=== PATIENT | female | born 1935 | race Caucasian/White ===

== ENCOUNTER → 2016-11-30 | Outpatient (CLI) | payer MEDICARE, BC ==
--- NOTE | 2016-11-30 14:53 | BD ---
EXAMINATION TYPE: MG DEXA axial skeleton. DATE OF EXAM: 11/30/2016 COMPARISON: NONE CLINICAL HISTORY: Postmenopausal female Height: 65.5 IN Weight: 225 LBS FRAX RISK QUESTIONS: Alcohol (3 or more units per day): NO Family History (Parent hip fracture): YES MOTHER Glucocorticoids (More than 3mos): NO (Ex: prednisone, prednisolone, methylprednisolone, dexamethasone, and hydrocortisone). History of Fracture in Adulthood: NO Secondary Osteoporosis: 1. Type 1 Diabetes: NO 2. Hyperthyroidism: NO 3. Menopause before 45: YES AGE 40 4. Malnutrition: NO 5. Chronic liver disease: NO Rheumatoid Arthritis: NO Current Tobacco Use: NO RISK FACTORS HISTORY OF: Family History of Osteoporosis: YES MOTHER/SISTER Active: YES Postmenopausal woman: AGE 40 MEDICATIONS: Additional Medications: XANAX, PAIN PILLS, ULTRAM EXAM MEASUREMENTS: Bone mineral densitometry was performed using the [employer]. Bone mineral density as measured about the Lumbar spine is: ----- L1-L4(G/cm2): 1.360 T Score Values are as follows: ----- L2: 1.1 ----- L3: 2.2 ----- L4: 2.5 ----- L1-L4: 1.5 Bone mineral density BASELINE Bone mineral density about the R hip (g/cm2): 0.945 Bone mineral density about the L hip (g/cm2): 0.961 T Score values are as follows: -----R Neck: -0.7 -----L Neck: -0.6 -----R Total: 0.4 -----L Total: 0.9 Bone mineral density BASELINE IMPRESSION: Normal (Values between +1 and -1 indicate normal bone mass). Consider repeating this study in 5 year s or sooner if there is some new clinical indication. NOTE: T-SCORE=SD OF THE YOUNG ADULT MEAN.
--- NOTE | 2016-12-01 09:17 | MM ---
Reason for exam: screening (asymptomatic). Last mammogram was performed 3 years and 2 months ago. History: Patient is postmenopausal. Physical Findings: A clinical breast exam by your physician is recommended on an annual basis and results should be correlated with mammographic findings. MG 3D Screening Mammo W/Cad Bilateral CC and MLO view(s) were taken. Prior study comparison: September 22, 2013, bilateral MG screening mammo w CAD. September 20, 2012, bilateral digital screening mammo w/CAD. There are scattered fibroglandular densities. Finding: There are typically benign calcifications in both breasts. There is a chronic nodularity in the left breast. No significant changes in finding since September 22, 2013 and September 20, 2012. ASSESSMENT: Benign, BI-RAD 2 RECOMMENDATION: Routine screening mammogram of both breasts in 1 year.
== END | disposition home or self-care (01) ==
LOC: RADBDWWP 12:18
PROVIDERS: ATTEND Family Medicine
DX: Z12.31 Encounter for screening mammogram for malignant neoplasm of breast (principal); M19.90 Unspecified osteoarthritis, unspecified site
CPT/HCPCS: 77080; 77063; G0202

== ENCOUNTER → 2017-03-30 | Outpatient (CLI) | payer MEDICARE, BC ==
--- NOTE | 2017-03-30 14:42 | US ---
EXAMINATION TYPE: US kidneys/renal and bladder DATE OF EXAM: 03/30/2017 COMPARISON: CT abdomen and pelvis October 06, 2015 CLINICAL HISTORY: N30.20 Chronic cystitis. Pt states recurrent UTI EXAM MEASUREMENTS: Right Kidney: 10.2 x 4.4 x 4.5 cm Left Kidney: 9.7 x 5.0 x 4.7 cm Post Void Residual Volume: 76mL Right Kidney: No evidence of hydro, lower pole gassed out Left Kidney: No evidence of hydro, lower pole gassed out Bladder: wnl Bilateral Jets seen: Only left jet visualized Normal Post Void Residual: No There is no evidence for hydronephrosis at this point in time. No nephrolithiasis is seen. No maria c s are identified on images saved. The urinary bladder is anechoic. Distal left ureter jet is seen. L iver adjacent to right kidney shows heterogeneous hyperechoic appearance suggesting diffuse fatty inf iltration. IMPRESSION: Abnormal post void residual noted. No hydronephrosis is seen bilaterally.
== END | disposition home or self-care (01) ==
LOC: RADUSWWP 14:05
PROVIDERS: ATTEND Urology
DX: R39.198 Other difficulties with micturition (principal); N30.20 Other chronic cystitis without hematuria
CPT/HCPCS: 76770

== ENCOUNTER → 2017-09-21 | Outpatient (CLI) | payer MEDICARE, BC ==
--- NOTE | 2017-09-22 08:34 | US ---
DATE OF EXAM: 09/21/2017 COMPARISON: NONE CLINICAL HISTORY: R22.1 neck swelling. Intermittent left neck swelling x 3-4 months Normal appearing soft tissue neck scan. 0.7cm normal appearing lymph node. No abnormality noted. IMPRESSION: 1. Small lymph node within the left neck.
== END | disposition home or self-care (01) ==
LOC: RADUSWWP 15:18
PROVIDERS: ATTEND Family Medicine
DX: R22.1 Localized swelling, mass and lump, neck (principal)
CPT/HCPCS: 76536

== ENCOUNTER → 2017-10-22 | Outpatient (CLI) | payer MEDICARE, BC ==
[2017-10-22 10:55] LABS: Basophils % (A) 1 %; Eosinophils # (A) 0.1 k/uL (0-0.7); Eosinophils % (A) 2 %; HCT 46.4 % (34.0-46.0); HGB 14.7 gm/dL (11.4-16.0); Lymphocytes % (A) 34 %; MCH 33.7 pg (25.0-35.0); MCHC 31.7 g/dL (31.0-37.0); MCV 106.4 fL (80.0-100.0); Macrocytosis Moderate; Monocytes # (A) 0.3 k/uL (0-1.0); Monocytes % (A) 5 %; Neutrophils # (A) 3.3 k/uL (1.3-7.7); Neutrophils % (A) 56 %; Platelet Count 288 k/uL (150-450); RBC 4.36 m/uL (3.80-5.40); RDW 13.3 % (11.5-15.5); WBC 5.8 k/uL (3.8-10.6)
[2017-10-22 12:40] LABS: Erythrocyte Sedimentation Rate 28 mm/hr (0-20)
--- NOTE | 2017-10-22 14:27 | NM ---
EXAMINATION TYPE: NM bone/joint limited DATE OF EXAM: 10/22/2017 COMPARISON: NONE HISTORY: Pain in left knee TECHNIQUE: After the intravenous administration of 24.9 mCi Tc 99m MDP. Images acquired 3 hours pos t injection. Multiple views of bilateral knees are submitted. Relative photopenia identified at the left knee is compared to the right compatible with postop maria e. Uptake in the right knee may be due to osteoarthritic change. Uptake along the tibial plateau and at the level of the patient's distal femoral component is mildly increased. IMPRESSION: Findings may be due to stress changes, uptake about the knee is nonspecific.
== END | disposition home or self-care (01) ==
LOC: RADNMMAIN 10:02
PROVIDERS: ATTEND Orthopaedic Surgery
DX: M25.562 Pain in left knee (principal)
CPT/HCPCS: 85652; 85025; 86140; 78300; A9503

== ENCOUNTER → 2017-12-24 | Outpatient (CLI) | payer MEDICARE, BC ==
--- NOTE | 2017-12-24 11:33 | ECHOF ---
Referral Reason:I10 Hypertension, R06.02 Shortness of breath MEASUREMENTS -------- HEIGHT: 170.2 cm WEIGHT: 98.9 kg BP: RVIDd: 3.5 cm (< 3.3) IVSd: 1.2 cm (0.6 - 1.1) LVIDd: 4.7 cm (3.9 - 5.3) LVPWd: 1.3 cm (0.6 - 1.1) IVSs: 1.3 cm LVIDs: 3.4 cm LVPWs: 1.4 cm LAESV Index (A-L): 10.13 ml/m Ao Diam: 3.3 cm (2.0 - 3.7) AV Cusp: 1.6 cm (1.5 - 2.6) LA Diam: 3.4 cm (2.7 - 3.8) MV E Noel: 0.52 m/s MV DecT: 295 ms MV A Noel: 0.96 m/s MV E/A Ratio: 0.54 RAP: 5.00 mmHg RVSP: 26.03 mmHg FINDINGS -------- Sinus rhythm. This was a technically adequate study. The left ventricular size is normal. There is mild concentric left ventricular hypertrophy. Overa ll left ventricular systolic function is low-normal with, an EF between 50 - 55 %. The right ventricle is normal in size and function. Normal LA size by volume 22+/-6 ml/m2. The right atrium is normal in size. Aortic valve is trileaflet and is mildly thickened. Trace amount of aortic regurgitation. There is no evidence of aortic stenosis. The mitral valve leaflets are mildly thickened. There is trace to mild mitral regurgitation. Trace tricuspid regurgitation present. Right ventricular systolic pressure is normal at < 35 mmHg. There is no evidence of pulmonary hypertension. The pulmonic valve was not well visualized. The aortic root size is normal. Normal inferior vena cava with normal inspiratory collapse consistent with estimated right atrial pre ssure of 5 mmHg. There is no pericardial effusion. CONCLUSIONS -------- 1. Sinus rhythm. 2. This was a technically adequate study. 3. The left ventricular size is normal. 4. There is mild concentric left ventricular hypertrophy. 5. Overall left ventricular systolic function is low-normal with, an EF between 50 - 55 %. 6. Normal LA size by volume 22+/-6 ml/m2. 7. Aortic valve is trileaflet and is mildly thickened. 8. Trace amount of aortic regurgitation. 9. The mitral valve leaflets are mildly thickened. 10. There is trace to mild mitral regurgitation. 11. Trace tricuspid regurgitation present. 12. Right ventricular systolic pressure is normal at < 35 mmHg. 13. There is no evidence of pulmonary hypertension. 14. The pulmonic valve was not well visualized. 15. The aortic root size is normal. 16. There is no pericardial effusion. [employer]: Yo Sosa RDCS
--- NOTE | 2017-12-25 16:47 | EST ---
EXERCISE STRESS AGE: 82 SEX: Female. HT: 67" WT: 218 pounds PROTOCOL: Pablo STAGE: I DURATION OF EXERCISE: 2:01 HEART RATE REST: 68 BLOOD PRESSURE REST: 131/95 MAXIMUM HEART RATE ACHIEVED: 132 MAXIMUM BLOOD PRESSURE: 178/87 85% MPHR: 117 100% MPHR: 138 METS: 2.8 INDICATIONS: Chest pain. CLINICAL INFORMATION: Baseline 12-lead ECG shows normal sinus rhythm, nonspecific ST-T abnormalities. Patient exercised on a Pablo protocol for 2 minutes, achieving a peak heart rate of 132 beats per minute. Normal blood pressure response to exercise. She was short of breath very quickly on the Pablo protocol. Occasional PVCs were noted. There was no ECG evidence for ischemia. IMPRESSION: Poor exercise capacity. Shortness of breath with minimal exertion. No ECG evidence for ischemia. Occasional PVCs. MMODL / IJN: [id number] /
== END ==
LOC: RADNMMAIN 08:28
PROVIDERS: ATTEND Family Medicine
DX: I51.7 Cardiomegaly (principal); I10 Essential (primary) hypertension
CPT/HCPCS: 93017; 93306

== ENCOUNTER → 2018-01-14 | Outpatient (CLI) | payer MEDICARE, BC ==
--- NOTE | 2018-01-14 12:21 | XR ---
EXAMINATION TYPE: XR lumbosacral spine min 4V DATE OF EXAM: 01/14/2018 CLINICAL HISTORY: pain COMPARISON: NONE TECHNIQUE: Frontal, lateral, and oblique images of the lumbar spine are obtained. FINDINGS: There are 5 lumbar type vertebral bodies identified. The lumbar spine shows satisfactory alignment without evidence of acute fracture or dislocation. Vertebral body heights are within normal limits. Moderate to severe multilevel degenerative disc disease and spondylosis. Severe lower lumbar facet joint arthropathy resulting in moderate foraminal encroachment at L4-5 and L5-S1. The overly ing soft tissue appears unremarkable. IMPRESSION: No acute fracture or dislocation is seen in the lumbar spine. ICD 10 NO FRACTURE, INITIAL EVALUATION
== END | disposition home or self-care (01) ==
LOC: RADXRMAIN 11:39
PROVIDERS: ATTEND Family Medicine
DX: M54.5 Low back pain (principal)
CPT/HCPCS: 72110

== ENCOUNTER → 2018-11-15 | Outpatient (CLI) | payer MEDICARE, BC ==
[2018-11-15 12:20] LABS: HCT 38.9 % (34.0-46.0); HGB 13.3 gm/dL (11.4-16.0); MCH 35.9 pg (25.0-35.0); MCHC 34.1 g/dL (31.0-37.0); MCV 105.2 fL (80.0-100.0); Macrocytosis Slight; Mean Platelet Volume 6.9; Platelet Count 255 k/uL (150-450); RBC 3.69 m/uL (3.80-5.40); RDW 12.7 % (11.5-15.5); WBC 7.2 k/uL (3.8-10.6)
[2018-11-15 12:29] LABS: Partial Thromboplastin Time 24.4 sec (22.0-30.0); Prothrombin Time 10.9 sec (9.0-12.0)
[2018-11-15 18:35] LABS: African American GFR (CKD) 53.8 (60.0-200.0); Albumin 4.1 g/dL (3.80-4.90); Albumin/Globulin Ratio 2.05 (1.60-3.17); Anion Gap 6.4 mmol/L (4.00-12.00); BUN/Creat Ratio 19.09 Ratio (12.00-20.00); Calcium 9.2 mg/dL (8.7-10.3); Carbon Dioxide 26.6 mmol/L (21.6-31.8); Potassium 4.7 mmol/L (3.5-5.5); Total Bilirubin 0.5 mg/dL (0.3-1.2); Total Protein 6.1 g/dL (6.2-8.2)
== END | disposition home or self-care (01) ==
LOC: LABWHC1 11:21
PROVIDERS: ATTEND Orthopaedic Surgery
DX: Z01.812 Encounter for preprocedural laboratory examination (principal); M12.9 Arthropathy, unspecified; Z79.01 Long term (current) use of anticoagulants
CPT/HCPCS: 36415; 80053; 85027; 85610; 85730; 87070

== ENCOUNTER → 2019-08-31 | Outpatient (CLI) | payer MEDICARE, BC ==
[2019-08-31 09:43] LABS: HGB 13.5 gm/dL (11.4-16.0); MCH 37.2 pg (25.0-35.0); MCHC 33.8 g/dL (31.0-37.0); Macrocytosis Marked; Mean Platelet Volume 7.8; Platelet Count 242 k/uL (150-450); RBC 3.64 m/uL (3.80-5.40); RDW 12.5 % (11.5-15.5); WBC 6.4 k/uL (3.8-10.6)
[2019-08-31 09:45] LABS: MCV 109.9 fL (80.0-100.0)
[2019-08-31 09:52] LABS: Potassium 4.6 mmol/L (3.5-5.1)
== END | disposition home or self-care (01) ==
LOC: LABPAT 08:19
PROVIDERS: ATTEND Internal Medicine Interventional Cardiology
DX: Z01.818 Encounter for other preprocedural examination (principal); R07.9 Chest pain, unspecified; R06.09 Other forms of dyspnea
CPT/HCPCS: 36415; 80051; 82565; 82947; 84520; 85027

== ENCOUNTER 2019-09-13 06:21 | Day surgery (SDC) | payer MEDICARE, BC ==
[2019-09-11 16:57] VITALS: BMI 33.2
[2019-09-13] MEDS ORDERED: NITROGLYCERIN SL TABS 0.4 MG TAB SUBLINGUAL PRN (06:22)
[2019-09-13] MEDS ORDERED: ALPRAZolam 0.5 MG TAB PO PRN (06:22)
[2019-09-13] MEDS ORDERED: ATORVASTATIN 80 MG TAB PO STA (06:22)
[2019-09-13] MEDS ORDERED: ALPRAZolam 0.25 MG TAB PO PRN (06:22)
[2019-09-13] MEDS ORDERED: SODIUM CHLORIDE 0.9% 1,000 ML in EMPTY BAG 1 BAG IV ONE (06:22)
[2019-09-13] MEDS ORDERED: ASPIRIN 325 MG TAB PO STA (06:22)
[2019-09-13 07:00] VITALS: TEMP 98
[2019-09-13] MEDS ORDERED: SODIUM CHLORIDE 0.9% 1,000 ML IV ONE (07:00)
[2019-09-13] MEDS ORDERED: fentaNYL (PF) 50 MCG/ML 2 ML AMP ONE (07:23)
[2019-09-13] MEDS ORDERED: MIDAZOLAM 2 MG/2 ML VIAL IVP ONE (07:42)
[2019-09-13] MEDS ORDERED: fentaNYL (PF) 50 MCG/ML 2 ML AMP IVP ONE ×2 (07:42)
[2019-09-13] MEDS ORDERED: SODIUM CHLORIDE 0.9% 1,000 ML IV SCH ×2 (08:15→10:30)
--- NOTE | 2019-09-13 08:17 | P.TEE ---
Indications for Procedure(s): Assessment 0f the mitral regurgitation Date of Procedure: 09/13/19 Preoperative Diagnosis: Nonrheumatic mitral regurgitation Postoperative Diagnosis: 2+ mitral regurgitation which is moderate Description of Procedure(s): INDICATION: This 84-year-old female has been having symptoms of shortness of breath. Transthoracic evidence of moderate to severe mitral regurgitation. Advised to have JOCE for further evaluation CONSENT:. Informed consent was obtained from patient PROCEDURE:, Patient was brought to the lab in a fasting state. She was prepped and draped in the usual fashion. Patient was given 1 mg of Versed and 37.5 g of fentanyl for sedation. The throat was sprayed with Cetacaine. A lubricated Omni probe was introduced into the oropharynx and was advanced into the esophagus. Multiple views were obtained from both esophagus and stomach. Patient tolerated the procedure well. Color, pulsed and continuous Doppler studies were performed. Saline contrast bubble injection was also performed FINDINGS:. The aortic valve is tricuspid with mild leaflet thickening. There is a mild aortic regurgitation. Mitral valve appears to be normal with mild myxomatous changes. There is some mitral regurgitation which is about moderate. The left atrium is mildly enlarged. The regurgitation is central. Left atrial appendage is free of any clot. The left ventricular function appeared within normal. The interatrial septum is intact without any spontaneous shunt. There is no crossing of bubbles with saline injection. The aorta showed minimal plaque IMPRESSION:1. Moderate mitral regurgitation #2. Mildly thickened aortic leaflets but no stenosis. Mild aortic regurgitation #3. Left atrial appendage is free of any clot. #4. No PFO #5. Left ventricular function is preserved PLAN:. Continued medical therapy. Follow up with serial echoes
[2019-09-13 08:41] VITALS: RESP 16
[2019-09-13] MEDS ORDERED: LIDOCAINE 1% INJ 10MG/ML (20 ML MDV) ONE (09:05)
[2019-09-13] MEDS ORDERED: HEPARIN SODIUM 1,000 UN/ML (10ML VL) ONE (09:05)
[2019-09-13] MEDS ORDERED: VERAPAMIL 2.5 MG/ML 2 ML AMP ONE (09:05)
[2019-09-13] MEDS ORDERED: IV FLUID CONTINUATION 1,000 ML IV ONE (09:09)
[2019-09-13] MEDS: LIDOCAINE 1% INJ 10MG/ML (20 ML MDV) SQ ONE ×2 (09:45→09:54)
[2019-09-13] MEDS ORDERED: MIDAZOLAM 2 MG/2 ML VIAL IV ONE (09:45)
[2019-09-13] MEDS ORDERED: IOPAMIDOL-370 100ML BTL INJ ONE (10:07)
[2019-09-13] MEDS ORDERED: NITROGLYCERIN SL TABS 0.4 MG TAB SUBLINGUAL ONE ×2 (10:11)
--- NOTE | 2019-09-13 11:48 | CC ---
CARDIAC CATHETERIZATION REPORT DATE OF SERVICE: 09/13/2019. PROCEDURE: Left heart catheterization and coronary angiography. PERFORMED BY: Dr. Mandy Man. Moderate conscious sedation time was 27 minutes. Patient was administered Versed. Oxygen saturation, hemodynamics and EKG were monitored closely. CLINICAL INFORMATION: Mrs. Jeannette Khan is an 84-year-old lady with a history of increasing shortness of breath and chest tightness with a worsening mitral regurgitation on noninvasive studies. She was advised coronary angiography after due discussion regarding risks, benefits, and options. PROCEDURE NOTE: Under local anesthesia and strict aseptic precautions, a 6-Occitan introducer was placed with correction with under strict aseptic precautions and local anesthesia. I attempted to place a there will be got attempted to gain access to the right radial site, but her pulse was somewhat stable and I got a good return but could not thread the wire. Therefore, I switched over to a right femoral approach. Using strict aseptic precautions and local anesthesia, I gained access to the right femoral artery. A 6-Occitan introducer was placed. Micropuncture technique was used. Standard Noemi catheters were used to perform coronary angiography and the same right catheter was used to check LV pressures. I checked the pressures in the iliac system. Because there was a gradient and I found out that the gradient was false. There was actually no gradient between the aorta and the iliac arteries. Following the procedure, Angio- Seal device was used to secure hemostasis and she was sent to the room in a stable condition. Results were discussed with the patient and daughter. She has no significant CAD that required intervention. Continued medical therapy was advised. CARDIAC CATHETERIZATION FINDINGS: The left foot end-diastolic pressure was about 11 mmHg without any gradient across aortic valve. CORONARY ANGIOGRAPHY FINDINGS: The right coronary artery technically dominant vessel. No significant disease. Distally it gives off a large acute marginal with runs in the PDA distribution and the PLV branch. There are minor irregularities. No significant disease. LEFT MAIN CORONARY ARTERY: Short patent disease-free vessel that bifurcates into LAD and circumflex. LEFT ANTERIOR DESCENDING CORONARY ARTERY: Good caliber vessel extends along the anterior wall, gives off a large diagonal branch that has a 40% narrowing eccentric in nature. The LAD has mild diffuse disease. Mild calcification runs all the way to the apex, has minor irregularities no significant disease. Left posterior circumflex coronary artery nondominant vessel gives off a good-sized obtuse marginal branch in the AV groove branch and a posterior left atrial circumflex branch. The circumflex has minor irregularities no significant disease. LV gram was not performed. FINAL IMPRESSION: This patient has a right dominant system normal filling pressures. No gradient across aortic valve. There is a 40% diagonal disease. The LAD has mild diffuse disease in the mid and distal segments. Circumflex and RCA are free of significant disease. RECOMMENDATIONS: Findings were discussed with the patient and her daughter. Continued medical therapy with risk factor modification is advised. She will be discharged later on today if he remains stable. MMODL / IJN: [id number] /
[2019-09-13 13:49] VITALS: BP 145/69
[2019-09-13 14:09] VITALS: PULSE 59
== END 2019-09-13 18:03 | disposition home or self-care (01) ==
LOC: CATHCVL 06:21
PROVIDERS: ATTEND Internal Medicine Interventional Cardiology
DX: I25.110 Atherosclerotic heart disease of native coronary artery with unstable angina pectoris (principal); I08.0 Rheumatic disorders of both mitral and aortic valves; I10 Essential (primary) hypertension; N39.0 Urinary tract infection, site not specified; Z79.82 Long term (current) use of aspirin; Z79.899 Other long term (current) drug therapy
CPT/HCPCS: 93312; 93320; 93325; 93458; C1760; C1894 ×2; C1769 ×3; J2250; J2001; J3010; Q9967

== ENCOUNTER → 2020-02-01 | Outpatient (CLI) | payer MEDICARE, BC | END | disposition home or self-care (01) | LOC: LABWHC1 12:23 | PROVIDERS: ATTEND Family Medicine | DX: R60.9 Edema, unspecified (principal) | CPT/HCPCS: 36415; 85379 ==

== ENCOUNTER → 2020-02-09 | Outpatient (CLI) | payer MEDICARE, BC ==
--- NOTE | 2020-02-09 14:52 | US ---
EXAMINATION TYPE: US venous doppler duplex LE DATE OF EXAM: 02/09/2020 2:07 PM COMPARISON: NONE CLINICAL HISTORY: R79.1 ELEV D DIMER. Leg pain. SIDE PERFORMED: Bilateral TECHNIQUE: The lower extremity deep venous system is examined utilizing real time linear array sonog anselmo with graded compression, doppler sonography and color-flow sonography. VESSELS IMAGED: Common Femoral Vein Deep Femoral Vein Greater Saphenous Vein * Femoral Vein Popliteal Vein Small Saphenous Vein * Proximal Calf Veins- limited visualization (* superficial vessels) Right Leg: Negative for DVT Left Leg: Negative for DVT IMPRESSION: 1. Bilateral lower extremity ultrasound negative for deep venous thrombosis.
== END | disposition home or self-care (01) ==
LOC: RADUSWWP 13:35
PROVIDERS: ATTEND Family Medicine
DX: R79.1 Abnormal coagulation profile (principal)
CPT/HCPCS: 93970

== ENCOUNTER 2020-03-05 09:19 | Emergency (ER) | payer MEDICARE, BC ==
[2020-03-05 09:30] VITALS: RESP 18
[2020-03-05] MEDS ORDERED: HYDROcodone/APAP 5-325MG 1 EACH TAB PO STA (09:47)
--- NOTE | 2020-03-05 09:50 | ED ---
General Adult HPI - General Source: patient, RN notes reviewed Mode of arrival: ambulatory Limitations: no limitations <Joey Martines - Last Filed: 03/05/20 11:29> <Hanh Downs - Last Filed: 03/07/20 00:15> - General Chief complaint: Extremity Injury, Lower Stated complaint: R Leg Pain Time Seen by Provider: 03/05/20 09:37 - History of Present Illness Initial comments: 84-year-old female presented emergency retching went of right leg pain this has been ongoing for several weeks states that she had an ultrasound in January it started before this. She states there is down her leg. Patient states she has no bowel bladder incontinence or retention or saddle anesthesias no lower shunted paresthesias. She is currently on antibiotics for urinary tract infection still taken them denies fevers chills no flank pain no chest pain. Patient does admit she has a bad back no history DVT or PE. (Joey Martines) - Related Data Home Medications Medication Instructions Recorded Confirmed traMADol HCL [Ultram] 50 mg PO Q8H PRN 10/06/15 03/05/20 Aspirin [Adult Low Dose Aspirin EC] 81 mg PO DAILY 09/11/19 03/05/20 amLODIPine [Norvasc] 5 mg PO HS 09/11/19 03/05/20 ALPRAZolam [Xanax] 1 mg PO HS 03/05/20 03/05/20 Furosemide [Lasix] 20 mg PO DAILY PRN 03/05/20 03/05/20 Nitrofurantoin Monohyd/M-Cryst 100 mg PO Q12HR 03/05/20 03/05/20 [Macrobid] diphenhydrAMINE [Benadryl] 50 mg PO HS 03/05/20 03/05/20 Previous Rx's Medication Instructions Recorded predniSONE 50 mg PO DAILY #5 tab 03/05/20 Allergies Allergy/AdvReac Type Severity Reaction Status Date / Time sulfamethoxazole Allergy Rash/Hives Verified 03/05/20 10:15 [From Bactrim] trimethoprim [From Bactrim] Allergy Rash/Hives Verified 03/05/20 10:15 Review of Systems ROS Other: All systems not noted in ROS Statement are negative. <Joey Martines - Last Filed: 03/05/20 11:29> ROS Other: All systems not noted in ROS Statement are negative. <Hanh Downs Moo - Last Filed: 03/07/20 00:15> ROS Statement: Those systems with pertinent positive or pertinent negative responses have been documented in the HPI. Past Medical History Past Medical History: Fibromyalgia, Hypertension, Osteoarthritis (OA) History of Any Multi-Drug Resistant Organisms: None Reported Past Surgical History: Appendectomy, Cholecystectomy, Hernia Repair, Hysterectomy, Joint Replacement, Tonsillectomy Additional Past Surgical History / Comment(s): LEFT KNEE REPLACED. Past Anesthesia/Blood Transfusion Reactions: No Reported Reaction Past Psychological History: Anxiety Past Alcohol Use History: None Reported <Joey Martines - Last Filed: 03/05/20 11:29> General Exam Limitations: no limitations General appearance: alert, in no apparent distress Head exam: Present: atraumatic, normocephalic, normal inspection Eye exam: Present: normal appearance, PERRL, EOMI. Absent: scleral icterus, conjunctival injection, periorbital swelling Neck exam: Present: normal inspection, full ROM. Absent: tenderness, meningismus, lymphadenopathy Respiratory exam: Present: normal lung sounds bilaterally. Absent: respiratory distress, wheezes, rales, rhonchi, stridor Cardiovascular Exam: Present: regular rate, normal rhythm, normal heart sounds. Absent: systolic murmur, diastolic murmur, rubs, gallop, clicks GI/Abdominal exam: Present: soft, normal bowel sounds. Absent: distended, tenderness, guarding, rebound, rigid Extremities exam: Present: other (Patient has mild tenderness right leg equal color equal warmth neurovascularly intact with equal pedal pulses, patient reports pain with range motion of the right leg from her hip to her calf region) Back exam: Present: full ROM, muscle spasm. Absent: tenderness, paraspinal tenderness, vertebral tenderness Neurological exam: Present: alert, oriented X3, CN II-XII intact, reflexes normal. Absent: motor sensory deficit Skin exam: Present: warm, dry, intact, normal color. Absent: rash <Joey Martines - Last Filed: 03/05/20 11:29> Course Vital Signs 03/05/20 03/05/20 09:21 11:55 Temperature 99 F 98.7 F Pulse Rate 96 52 L Respiratory 18 18 Rate Blood Pressure 143/80 149/81 O2 Sat by Pulse 99 98 Oximetry Medical Decision Making <Joey Martines - Last Filed: 03/05/20 11:29> <Hanh Downs - Last Filed: 03/07/20 00:15> - Medical Decision Making Repeat ultrasound is negative for acute DVT. Patient symptoms more consistent with lumbar radiculopathy. She has extensive back history. She'll be started on maps tone, pain control follow-up with orthopedic spine. Patient requests urine culture patient sample was sent. Patient currently on antibiotics for urinary tract infection. (Joey Martines) I was available for consultation in the emergency department. The history and physical exam were done by the midlevel provider. I was consulted for this patients care. I reviewed the case with the midlevel provider and based on their presentation of the patient, I agree with the assessment, medical decision making and plan of care as documented. Chart was dictated using [employer] dictation software. Attempts were made to correct any dictation errors however some typographical errors may persist. Patient was seen during a national state of emergency due to the Covid-19 pandemic. (Hanh Downs) Disposition Is patient prescribed a controlled substance at d/c from ED?: No Time of Disposition: 11:31 <Joey Martines - Last Filed: 03/05/20 11:29> <Hanh Downs - Last Filed: 03/07/20 00:15> Clinical Impression: Lumbar radiculopathy, acute Disposition: HOME SELF-CARE Condition: Stable Instructions (If sedation given, give patient instructions): Lumbar Radiculopathy (ED) Additional Instructions: Please return to the Emergency Department if symptoms worsen or any other concerns. Prescriptions: predniSONE 50 mg PO DAILY #5 tab Referrals: Sammy Velazquez DO [Primary Care Provider] - 1-2 days Christen Barahona DO [Doctor of Osteopathic Medicine] - 1-2 days
--- NOTE | 2020-03-05 10:45 | US ---
EXAMINATION TYPE: US venous doppler duplex LE RT DATE OF EXAM: 03/05/2020 9:48 AM COMPARISON: 02/09/2020 CLINICAL HISTORY: 84-year-old female pain. On/off right leg pain x 1 month, patient taking aspirin SIDE PERFORMED: Right TECHNIQUE: The lower extremity deep venous system is examined utilizing real time linear array sonog anselmo with graded compression, doppler sonography and color-flow sonography. FINDINGS: VESSELS IMAGED: Common Femoral Vein Deep Femoral Vein Greater Saphenous Vein * Femoral Vein Popliteal Vein Small Saphenous Vein * Proximal Calf Veins (* superficial vessels) Right Leg: Appears negative for DVT IMPRESSION: No evidence for DVT within the right lower extremity imaged from the groin to the upper calf.
--- NOTE | 2020-03-05 10:57 | XR ---
EXAM TYPE: LUMBAR SPINE X RAY SERIES COMPARISON: 01/14/2018 HISTORY: Pain TECHNIQUE: 4 views are submitted. FINDINGS: Curvature of the spine with multilevel hypertrophic and degenerative changes. Facet arthropathy. Mult ilevel foraminal encroachment. There is a retrolisthesis of L1 on L2 and L2 on L3 and L3 on L4. No co mpression deformities. IMPRESSION: 1. Multilevel hypertrophic and degenerative changes with multilevel severe degenerative disc disease and vacuum disc. 2. Multilevel foraminal encroachment suspected consider MRI follow-up.
[2020-03-05] MEDS ORDERED: ACET/COD 300 MG/30 MG STARTER PACK 6 TAB BTL PO STA (11:32)
[2020-03-05 11:57] VITALS: BP 149/81; PULSE 52; TEMP 98.7
== END 2020-03-05 11:57 | disposition home or self-care (01) ==
LOC: EC 09:19
DX: M54.16 Radiculopathy, lumbar region (principal); I10 Essential (primary) hypertension; F41.9 Anxiety disorder, unspecified; M19.90 Unspecified osteoarthritis, unspecified site; Z79.82 Long term (current) use of aspirin; Z79.899 Other long term (current) drug therapy; Z88.1 Allergy status to other antibiotic agents; Z88.2 Allergy status to sulfonamides; Z96.652 Presence of left artificial knee joint
CPT/HCPCS: 72110; 87086; 99284

== ENCOUNTER → 2020-06-03 | Outpatient (CLI) | payer MEDICARE, BC ==
[2020-06-03 12:08] LABS: Partial Thromboplastin Time 23.7 sec (22.0-30.0); Prothrombin Time 10.5 sec (9.0-12.0)
[2020-06-03 16:42] LABS: HCT 41.5 % (37.2-46.3); HGB 13.6 g/dL (12.0-15.0); MCH 35.6 pg (27.0-32.0); MCHC 32.8 g/dL (32.0-37.0); MCV 108.6 fL (80.0-97.0); Mean Platelet Volume 10.8 fL (9.5-12.2); Platelet Count 256 X 10*3/uL (140-440); RBC 3.82 X 10*6/uL (4.10-5.20); RDW 12.8 % (11.5-14.5); WBC 7.86 X 10*3/uL (4.50-10.00)
[2020-06-03 21:05] LABS: Hemoglobin A1C 5.1 % (4.0-6.0)
[2020-06-03 22:55] LABS: African American GFR (CKD) 53.4 (60.0-200.0); Albumin 4.3 g/dL (3.80-4.90); Albumin/Globulin Ratio 2.05 (1.60-3.17); Anion Gap 9.5 mmol/L (4.00-12.00); BUN/Creat Ratio 23.64 Ratio (12.00-20.00); Calcium 9.6 mg/dL (8.7-10.3); Carbon Dioxide 24.5 mmol/L (21.6-31.8); Globulin 2.1 g/dL (1.6-3.3); Non-African American GFR(CKD) 46.1 (60.0-200.0); Potassium 4.1 mmol/L (3.5-5.5); Total Bilirubin 0.6 mg/dL (0.2-1.2); Total Protein 6.4 g/dL (6.2-8.2)
== END | disposition home or self-care (01) ==
LOC: LABWHC1 09:17
PROVIDERS: ATTEND Physician Assistant Medical
DX: Z01.818 Encounter for other preprocedural examination (principal); D64.9 Anemia, unspecified; M12.9 Arthropathy, unspecified
CPT/HCPCS: 36415; 80053; 83036; 85027; 85610; 85730; 86850; 86870; 86880; 86900; 86901; 87070

== ENCOUNTER → 2020-06-13 | Outpatient (CLI) | payer MEDICARE, BC | END | disposition home or self-care (01) | LOC: LABWHC1 08:39 | PROVIDERS: ATTEND Family Medicine | DX: Z01.812 Encounter for preprocedural laboratory examination (principal); Z11.52 Encounter for screening for COVID-19 | CPT/HCPCS: U0003; C9803; U0005 ==

== ENCOUNTER → 2020-07-11 | Outpatient (CLI) | payer MEDICARE, BC ==
--- NOTE | 2020-07-11 10:30 | XR ---
Study: X-ray of the abdomen. HISTORY: Abdominal pain. TECHNIQUE: 3 images of the abdomen in supine position were obtained. Correlation made with x-rays fro 10/18/2012 FINDINGS: Images demonstrate moderate degenerative disease of the lumbar spine. There is moderate fecal material is seen in the colonic loops representing mild fecal stasis. There is no evidence of bowel obstruction. IMPRESSION: Mild fecal stasis. Nonobstructive bowel gas pattern. Moderate degenerative disease of the lumbar spin e.
== END | disposition home or self-care (01) ==
LOC: RADXRMAIN 10:05
PROVIDERS: ATTEND Family Medicine
DX: K56.41 Fecal impaction (principal); M51.36 Other intervertebral disc degeneration, lumbar region
CPT/HCPCS: 74018

== ENCOUNTER 2020-12-04 22:09 | Emergency (ER) | payer MEDICARE, BC ==
[2020-12-04] MEDS ORDERED: MORPHINE SULFATE 4 MG/ML SYRINGE IV STA (23:00)
[2020-12-04] MEDS ORDERED: ONDANSETRON 4 MG/2 ML VIAL IVP STA (23:00)
[2020-12-04] MEDS ORDERED: SODIUM CHLORIDE 0.9% 1,000 ML IV STA (23:00)
[2020-12-04] MEDS ORDERED: SODIUM CHLORIDE 0.9% 500 ML 500 ML IV STA (23:00)
[2020-12-04] MEDS ORDERED: MINERAL OIL 133 ML ENEMA RECTAL STA (23:00)
--- NOTE | 2020-12-04 23:13 | ED ---
Abdominal Pain HPI - General Chief Complaint: Abdominal Pain Stated Complaint: Abd Pain Time Seen by Provider: 12/04/20 22:18 Source: patient, family, RN notes reviewed, old records reviewed, Caregiver Mode of arrival: ambulatory Limitations: no limitations - History of Present Illness Initial Comments: This is an 85-year-old female to the emergency department today. She presents from home for evaluation. Patient is presenting for evaluation regards to abdominal pain. Patient states he feels a prior episodes of colitis. She has had multiple abdominal surgeries including gallbladder removal appendix removal and hysterectomy. Patient states his symptoms been going on for about 3 days no fevers mild nausea no vomiting no diarrhea. No other complaints noted MD Complaint: abdominal pain -: days(s) (3) Location: diffuse, periumbilical, epigastric Radiation: epigastric Migration to: epigastric, suprapubic Severity: moderate Severity scale (1-10): 4 Quality: cramping, aching Consistency: intermittent Improves With: nothing Worsens With: nothing Context: other (none) Associated Symptoms: nausea Treatments Prior to Arrival: other (none) - Related Data Home Medications Medication Instructions Recorded Confirmed traMADol HCL [Ultram] 50 mg PO Q8H PRN 10/06/15 03/05/20 Aspirin [Adult Low Dose Aspirin EC] 81 mg PO DAILY 09/11/19 03/05/20 amLODIPine [Norvasc] 5 mg PO HS 09/11/19 03/05/20 ALPRAZolam [Xanax] 1 mg PO HS 03/05/20 03/05/20 Furosemide [Lasix] 20 mg PO DAILY PRN 03/05/20 03/05/20 Nitrofurantoin Monohyd/M-Cryst 100 mg PO Q12HR 03/05/20 03/05/20 [Macrobid] diphenhydrAMINE [Benadryl] 50 mg PO HS 03/05/20 03/05/20 Previous Rx's Medication Instructions Recorded predniSONE 50 mg PO DAILY #5 tab 03/05/20 Allergies Allergy/AdvReac Type Severity Reaction Status Date / Time sulfamethoxazole Allergy Rash/Hives Verified 12/04/20 22:16 [From Bactrim] trimethoprim [From Bactrim] Allergy Rash/Hives Verified 12/04/20 22:16 Review of Systems ROS Statement: Those systems with pertinent positive or pertinent negative responses have been documented in the HPI. ROS Other: All systems not noted in ROS Statement are negative. Past Medical History Past Medical History: Fibromyalgia, Hypertension, Osteoarthritis (OA) History of Any Multi-Drug Resistant Organisms: None Reported Past Surgical History: Appendectomy, Cholecystectomy, Hernia Repair, Hysterectomy, Joint Replacement, Tonsillectomy Additional Past Surgical History / Comment(s): LEFT KNEE REPLACED. Past Anesthesia/Blood Transfusion Reactions: No Reported Reaction Past Psychological History: Anxiety Smoking Status: Never smoker Past Alcohol Use History: None Reported Past Drug Use History: None Reported General Exam Limitations: no limitations General appearance: alert, in no apparent distress, obese Head exam: Present: atraumatic, normocephalic, normal inspection Eye exam: Present: normal appearance, PERRL, EOMI. Absent: scleral icterus, conjunctival injection, periorbital swelling ENT exam: Present: normal exam, mucous membranes moist Neck exam: Present: normal inspection. Absent: tenderness, meningismus, lymphadenopathy Respiratory exam: Present: normal lung sounds bilaterally. Absent: respiratory distress, wheezes, rales, rhonchi, stridor Cardiovascular Exam: Present: regular rate, normal rhythm, normal heart sounds. Absent: systolic murmur, diastolic murmur, rubs, gallop, clicks GI/Abdominal exam: Present: soft, normal bowel sounds. Absent: distended, tenderness, guarding, rebound, rigid Extremities exam: Present: normal inspection, full ROM, normal capillary refill. Absent: tenderness, pedal edema, joint swelling, calf tenderness Back exam: Present: normal inspection Neurological exam: Present: alert, oriented X3, CN II-XII intact Psychiatric exam: Present: normal affect, normal mood Skin exam: Present: warm, dry, intact, normal color. Absent: rash Course Vital Signs 12/04/20 12/04/20 12/05/20 22:10 23:05 00:36 Temperature 97.4 F L 97.8 F Pulse Rate 90 79 73 Respiratory 22 16 16 Rate Blood Pressure 155/84 132/77 138/63 O2 Sat by Pulse 97 97 97 Oximetry - Reevaluation(s) Reevaluation #1: 12/04/20 23:59 Medical record is reviewed Reevaluation #2: 12/04/20 23:59 Patient's pain is much improved Reevaluation #3: 12/05/20 01:47 Patient states that she has been through 3 fusion also the recent past. Does admit to increased stress Reevaluation #4: 12/05/20 01:48 patient is informed results and questions answered, okay for discharge Medical Decision Making - Medical Decision Making 85 female for abdominal pain, CT labwork are normal here in the ER doesn't some increased stress but this point patient can be discharged home with no acute findings - Lab Data Result diagrams: 12/04/20 23:01 12/04/20 23:01 Lab Results 12/04/20 12/04/20 12/04/20 Range/Units 23:01 23:01 23:01 WBC 9.6 (3.8-10.6) k/uL RBC 3.81 (3.80-5.40) m/uL Hgb 13.8 (11.4-16.0) gm/dL Hct 40.5 (34.0-46.0) % MCV 106.5 H (80.0-100.0) fL MCH 36.3 H (25.0-35.0) pg MCHC 34.1 (31.0-37.0) g/dL RDW 12.0 (11.5-15.5) % Plt Count 284 (150-450) k/uL MPV 7.8 Neutrophils % 63 % Lymphocytes % 26 % Monocytes % 7 % Eosinophils % 2 % Basophils % 1 % Neutrophils # 6.0 (1.3-7.7) k/uL Lymphocytes # 2.5 (1.0-4.8) k/uL Monocytes # 0.7 (0-1.0) k/uL Eosinophils # 0.2 (0-0.7) k/uL Basophils # 0.1 (0-0.2) k/uL Macrocytosis Slight Sodium 134 L (137-145) mmol/L Potassium 3.3 L (3.5-5.1) mmol/L Chloride 101 (98-107) mmol/L Carbon Dioxide 29 (22-30) mmol/L Anion Gap 4 mmol/L BUN 23 H (7-17) mg/dL Creatinine 0.92 (0.52-1.04) mg/dL Est GFR (CKD-EPI)AfAm 66 (>60 ml/min/1.73 sqM) Est GFR (CKD-EPI)NonAf 57 (>60 ml/min/1.73 sqM) Glucose 131 H (74-99) mg/dL Plasma Lactic Acid [place] 1.6 (0.7-2.0) mmol/L Calcium 9.3 (8.4-10.2) mg/dL Total Bilirubin 0.4 (0.2-1.3) mg/dL AST 22 (14-36) U/L ALT 13 (4-34) U/L Alkaline Phosphatase 92 (38-126) U/L Troponin I (0.000-0.034) ng/mL Total Protein 6.0 L (6.3-8.2) g/dL Albumin 3.3 L (3.5-5.0) g/dL Amylase 59 (30-110) U/L Lipase 112 (23-300) U/L Urine Color Urine Appearance (Clear) Urine pH (5.0-8.0) Ur Specific [place] (1.001-1.035) Urine Protein (Negative) Urine Glucose (UA) (Negative) Urine Ketones (Negative) Urine Blood (Negative) Urine Nitrite (Negative) Urine Bilirubin (Negative) Urine Urobilinogen (<2.0) mg/dL Ur Leukocyte Esterase (Negative) Urine RBC (0-5) /hpf Urine WBC (0-5) /hpf Ur Squamous Epith Cells (0-4) /hpf Urine Bacteria (None) /hpf 12/04/20 12/05/20 Range/Units 23:01 00:51 WBC (3.8-10.6) k/uL RBC (3.80-5.40) m/uL Hgb (11.4-16.0) gm/dL Hct (34.0-46.0) % MCV (80.0-100.0) fL MCH (25.0-35.0) pg MCHC (31.0-37.0) g/dL RDW (11.5-15.5) % Plt Count (150-450) k/uL MPV Neutrophils % % Lymphocytes % % Monocytes % % Eosinophils % % Basophils % % Neutrophils # (1.3-7.7) k/uL Lymphocytes # (1.0-4.8) k/uL Monocytes # (0-1.0) k/uL Eosinophils # (0-0.7) k/uL Basophils # (0-0.2) k/uL Macrocytosis Sodium (137-145) mmol/L Potassium (3.5-5.1) mmol/L Chloride (98-107) mmol/L Carbon Dioxide (22-30) mmol/L Anion Gap mmol/L BUN (7-17) mg/dL Creatinine (0.52-1.04) mg/dL Est GFR (CKD-EPI)AfAm (>60 ml/min/1.73 sqM) Est GFR (CKD-EPI)NonAf (>60 ml/min/1.73 sqM) Glucose (74-99) mg/dL Plasma Lactic Acid [place] (0.7-2.0) mmol/L Calcium (8.4-10.2) mg/dL Total Bilirubin (0.2-1.3) mg/dL AST (14-36) U/L ALT (4-34) U/L Alkaline Phosphatase (38-126) U/L Troponin I <0.012 (0.000-0.034) ng/mL Total Protein (6.3-8.2) g/dL Albumin (3.5-5.0) g/dL Amylase (30-110) U/L Lipase (23-300) U/L Urine Color Light Yellow Urine Appearance Clear (Clear) Urine pH 6.5 (5.0-8.0) Ur Specific [place] 1.013 (1.001-1.035) Urine Protein Negative (Negative) Urine Glucose (UA) Negative (Negative) Urine Ketones Negative (Negative) Urine Blood Negative (Negative) Urine Nitrite Negative (Negative) Urine Bilirubin Negative (Negative) Urine Urobilinogen <2.0 (<2.0) mg/dL Ur Leukocyte Esterase Moderate H (Negative) Urine RBC 1 (0-5) /hpf Urine WBC 13 H (0-5) /hpf Ur Squamous Epith Cells <1 (0-4) /hpf Urine Bacteria Rare H (None) /hpf - Radiology Data Radiology results: report reviewed (CT chest abdomen pelvis is negative for acute disease), image reviewed Disposition Clinical Impression: Abdominal pain Disposition: HOME SELF-CARE Condition: Good Instructions (If sedation given, give patient instructions): Abdominal Pain (ED) Is patient prescribed a controlled substance at d/c from ED?: No Referrals: Sammy Velazquez DO [Primary Care Provider] - 1-2 days
[2020-12-04 23:21] LABS: Basophils # (A) 0.1 k/uL (0-0.2); Basophils % (A) 1 %; Eosinophils # (A) 0.2 k/uL (0-0.7); Eosinophils % (A) 2 %; HCT 40.5 % (34.0-46.0); HGB 13.8 gm/dL (11.4-16.0); Lymphocytes # (A) 2.5 k/uL (1.0-4.8); Lymphocytes % (A) 26 %; MCH 36.3 pg (25.0-35.0); MCHC 34.1 g/dL (31.0-37.0); MCV 106.5 fL (80.0-100.0); Macrocytosis Slight; Mean Platelet Volume 7.8; Monocytes # (A) 0.7 k/uL (0-1.0); Monocytes % (A) 7 %; Neutrophils % (A) 63 %; Platelet Count 284 k/uL (150-450); RBC 3.81 m/uL (3.80-5.40); WBC 9.6 k/uL (3.8-10.6)
[2020-12-04 23:32] LABS: Albumin 3.3 g/dL (3.5-5.0); Calcium 9.3 mg/dL (8.4-10.2); Potassium 3.3 mmol/L (3.5-5.1); Total Bilirubin 0.4 mg/dL (0.2-1.3)
[2020-12-05 00:36] VITALS: RESP 16
[2020-12-05 01:09] LABS: Appearance,Urine Clear (Clear); Bacteria,Urine Rare /hpf; Bilirubin,Urine Negative (Negative); Blood,Urine Negative (Negative); Color,Urine Light Yellow; Glucose,Urine (UA) Negative (Negative); Ketones,Urine Negative (Negative); Leukocyte Esterase,Urine Moderate (Negative); Nitrite,Urine Negative (Negative); PH, Urine 6.5 (5.0-8.0); Protein,Urine Negative (Negative); RBC,Urine 1 /hpf (0-5); Specific Gravity,Urine 1.013 (1.001-1.035); Squamous Epithelial Cell,Urine <1 /hpf (0-4); Urobilinogen,Urine <2.0 mg/dL (<2.0); WBC,Urine 13 /hpf (0-5)
--- NOTE | 2020-12-05 01:19 | CT ---
EXAMINATION TYPE: CT abdomen pelvis w con DATE OF EXAM: 12/05/2020 COMPARISON: 10/06/2015 HISTORY: mid abd pain CT DLP: 1883.7 mGycm Automated exposure control for dose reduction was used. CONTRAST: Performed with IV Contrast, patient injected with 80 mL of Isovue 370. Images obtained from the diaphragm to the floor the pelvis with IV contrast. lung bases are clear. There is no pleural effusion. Heart size is normal. There is no pericardial eff usion. Liver spleen stomach pancreas appear intact. The bile ducts are not dilated. Gallbladder is ab sent. There is no adrenal mass. Kidneys show satisfactory contrast opacification. There is no hydronephrosi s. Delayed images show normal renal excretion. There is no evidence of a renal mass. There is no retr operitoneal adenopathy. Ureters are not dilated. Bladder distends smoothly. There is no inguinal blane ia. There are sigmoid diverticula. There is no sign of diverticulitis. There are scattered diverticul a throughout the large bowel. Appendix is not definitely seen. There is no sign of thickened appendix . There is no mesenteric edema. There is no ascites or free air. There is no bowel obstruction. The lumbar vertebra have normal alignment. There is multilevel degenerative disc changes. There is no compression fracture. Bony pelvis is intact. The hip joints are intact. IMPRESSION: Colonic diverticulosis without diverticulitis. No evidence of acute abdomen and pelvis. There is samuel ring of the minimal fat stranding around the proximal sigmoid colon compared to old exam.
--- NOTE | 2020-12-05 01:24 | CT ---
EXAMINATION TYPE: CT angio chest DATE OF EXAM: 12/05/2020 COMPARISON: None HISTORY: mid abd pain CT DLP: 1883.7 mGycm Automated exposure control for dose reduction was used. CONTRAST: Performed with IV Contrast, patient injected with 80 mL of Isovue 370. Exam from the vasculature to the diaphragm with IV contrast. There are 3-D post processed images. The lungs are clear of consolidation. There is some mild linear density at the lateral left lung base . There is minimal linear density right middle lobe and lingula left upper lobe. Heart is borderline enlarged. There is no pericardial effusion. There is no pleural effusion. Thoracic aorta is intact. There is no aneurysm or dissection. Ascending aorta measures 3.5 cm. There is no plaque formation. There is no mediastinal adenopathy. There are no hilar masses. There is normal contrast opacification of the pulmonary arteries. There are no filling defects. The thoracic vertebra appear intact. There is no compression fracture. Sternum is intact. IMPRESSION: No evidence of pulmonary embolism. Minimal scarring or subsegmental atelectasis in the right middle l obe and lingula left upper lobe and at the lateral left lung base. No suspicious pulmonary mass.
[2020-12-05] MEDS ORDERED: traMADol 50 MG STARTER PACK 3 TAB BTL PO STA (01:48)
[2020-12-05] MEDS ORDERED: ONDANSETRON 4 MG ODT STARTER PACK 2 TAB BTL PO STA (01:48)
[2020-12-05 02:10] VITALS: BP 129/61; PULSE 69; TEMP 97.9
== END 2020-12-05 02:12 | disposition home or self-care (01) ==
LOC: EC 22:09
DX: R10.84 Generalized abdominal pain (principal); I10 Essential (primary) hypertension; M19.90 Unspecified osteoarthritis, unspecified site; F41.9 Anxiety disorder, unspecified; Z79.82 Long term (current) use of aspirin; Z88.1 Allergy status to other antibiotic agents; Z88.2 Allergy status to sulfonamides; Z90.710 Acquired absence of both cervix and uterus; Z90.49 Acquired absence of other specified parts of digestive tract; Z90.89 Acquired absence of other organs; Z96.652 Presence of left artificial knee joint
CPT/HCPCS: 99284; 96374; 96375; 96361 ×3; 36415; 80053; 82150; 83605; 83690; 84484; 85025; 81001; 87086; 71275; 74177; J2270; J2405; S0119; Q9967

== ENCOUNTER 2020-12-11 12:23 | Observation (INO) | payer MEDICARE, BC ==
--- NOTE | 2020-12-11 12:53 | XR ---
KUB HISTORY: Abdominal pain Frontal KUB and 2 images correlated to prior CT scan dated 12/04/2020 There is a S-shaped thoracic lumbar scoliosis. There are overlying artifacts. No evident bowel obstru ction or pneumoperitoneum. No pathologic calcification. There is retained fecal debris throughout the distribution of the colon. IMPRESSION: Correlate for fecal stasis. Scoliosis.
[2020-12-11 13:23] LABS: Basophils % (A) 0 %; Eosinophils # (A) 0.1 k/uL (0-0.7); Eosinophils % (A) 1 %; HCT 42.2 % (34.0-46.0); HGB 14.5 gm/dL (11.4-16.0); Lymphocytes # (A) 1.8 k/uL (1.0-4.8); Lymphocytes % (A) 22 %; MCH 36.4 pg (25.0-35.0); MCHC 34.2 g/dL (31.0-37.0); MCV 106.2 fL (80.0-100.0); Macrocytosis Slight; Mean Platelet Volume 7.7; Monocytes # (A) 0.3 k/uL (0-1.0); Monocytes % (A) 4 %; Neutrophils % (A) 71 %; Platelet Count 290 k/uL (150-450); RBC 3.98 m/uL (3.80-5.40); WBC 8.4 k/uL (3.8-10.6)
[2020-12-11 13:44] LABS: Albumin 4.4 g/dL (3.5-5.0); Total Bilirubin 1.1 mg/dL (0.2-1.3); Total Protein 7.6 g/dL (6.3-8.2)
[2020-12-11 13:45] LABS: Potassium 4.5 mmol/L (3.5-5.1)
[2020-12-11 14:17] LABS: Appearance,Urine Clear (Clear); Bilirubin,Urine Negative (Negative); Blood,Urine Negative (Negative); Color,Urine Yellow; Glucose,Urine (UA) Negative (Negative); Ketones,Urine Negative (Negative); Leukocyte Esterase,Urine Small (Negative); Mucus,Urine Rare /hpf; Nitrite,Urine Negative (Negative); Protein,Urine Negative (Negative); RBC,Urine <1 /hpf (0-5); Squamous Epithelial Cell,Urine 1 /hpf (0-4); Urobilinogen,Urine <2.0 mg/dL (<2.0); WBC,Urine 3 /hpf (0-5)
[2020-12-11] MEDS ORDERED: SODIUM CHLORIDE 0.9% 1,000 ML IV ONE (14:30)
--- NOTE | 2020-12-11 15:46 | ED ---
General Adult HPI - General Chief complaint: Abdominal Pain Stated complaint: abd pain Time Seen by Provider: 12/11/20 12:30 Source: patient, RN notes reviewed, old records reviewed Mode of arrival: ambulatory Limitations: no limitations - History of Present Illness Initial comments: This is an 85-year-old female who presents emergency Department with abdominal pain. Patient states been ongoing for over a week. Patient states she was here on the seventh had lab work and a CAT scan and everything was normal she was sent home to follow-up with primary medical care doctor she saw her medical care doctor today and he told her to come to the hospital to be admitted to see GI. Patient states she has had no vomiting or diarrhea. Patient states she is somewhat constipated and has not bowel 6 days. Patient denies any fever chills per patient denies chest pain difficulty breathing. Patient states the pain is more upper but it is diffuse and there is pain everywhere. Patient denies any dysuria hematuria urinary frequency. - Related Data Home Medications Medication Instructions Recorded Confirmed traMADol HCL [Ultram] 50 mg PO Q8H PRN 10/06/15 03/05/20 Aspirin [Adult Low Dose Aspirin EC] 81 mg PO DAILY 09/11/19 03/05/20 amLODIPine [Norvasc] 5 mg PO HS 09/11/19 03/05/20 ALPRAZolam [Xanax] 1 mg PO HS 03/05/20 03/05/20 Furosemide [Lasix] 20 mg PO DAILY PRN 03/05/20 03/05/20 Nitrofurantoin Monohyd/M-Cryst 100 mg PO Q12HR 03/05/20 03/05/20 [Macrobid] diphenhydrAMINE [Benadryl] 50 mg PO HS 03/05/20 03/05/20 Previous Rx's Medication Instructions Recorded predniSONE 50 mg PO DAILY #5 tab 03/05/20 Allergies Allergy/AdvReac Type Severity Reaction Status Date / Time sulfamethoxazole Allergy Rash/Hives Verified 12/11/20 12:28 [From Bactrim] trimethoprim [From Bactrim] Allergy Rash/Hives Verified 12/11/20 12:28 Review of Systems ROS Statement: Those systems with pertinent positive or pertinent negative responses have been documented in the HPI. ROS Other: All systems not noted in ROS Statement are negative. Past Medical History Past Medical History: Fibromyalgia, Hypertension, Osteoarthritis (OA) History of Any Multi-Drug Resistant Organisms: None Reported Past Surgical History: Appendectomy, Cholecystectomy, Hernia Repair, Hysterectomy, Joint Replacement, Tonsillectomy Additional Past Surgical History / Comment(s): LEFT KNEE REPLACED. Past Anesthesia/Blood Transfusion Reactions: No Reported Reaction Past Psychological History: Anxiety Smoking Status: Never smoker Past Alcohol Use History: None Reported Past Drug Use History: None Reported General Exam - General Exam Comments Initial Comments: GENERAL: Patient is well-developed and well-nourished. Patient is nontoxic and well- hydrated and is in mild distress. ENT: Neck is soft and supple. No significant lymphadenopathy is noted. Oropharynx is clear. Moist mucous membranes. Neck has full range of motion without eliciting any pain. EYES: The sclera were anicteric and conjunctiva were pink and moist. Extraocular movements were intact and pupils were equal round and reactive to light. Eyelids were unremarkable. PULMONARY: Unlabored respirations. Good breath sounds bilaterally. No audible rales rhonchi or wheezing was noted. CARDIOVASCULAR: There is a regular rate and rhythm without any murmurs gallops or rubs. ABDOMEN: Minimal diffuse tenderness. SKIN: Skin is clear with no lesions or rashes and otherwise unremarkable. NEUROLOGIC: Patient is alert and oriented x3. Cranial nerves II through XII are grossly intact. Motor and sensory are also intact. Normal speech, volume and content. Symmetrical smile. MUSCULOSKELETAL: Normal extremities with adequate strength and full range of motion. LYMPHATICS: No significant lymphadenopathy is noted PSYCHIATRIC: Normal psychiatric evaluation. Limitations: no limitations Course Vital Signs 12/11/20 12:28 Temperature 97.9 F Pulse Rate 94 Respiratory 16 Rate Blood Pressure 170/124 O2 Sat by Pulse 96 Oximetry Medical Decision Making - Medical Decision Making Patient was given an enema in the emergency department and results are very minimal and the patient continued abdominal pain. I spoke with Dr. Nagy he agreed to admit the patient and the patient wrote admitting orders. - Lab Data Result diagrams: 12/11/20 12:57 12/11/20 12:57 Lab Results 12/11/20 12/11/20 12/11/20 Range/Units 12:57 12:57 14:09 WBC 8.4 (3.8-10.6) k/uL RBC 3.98 (3.80-5.40) m/uL Hgb 14.5 (11.4-16.0) gm/dL Hct 42.2 (34.0-46.0) % MCV 106.2 H (80.0-100.0) fL MCH 36.4 H (25.0-35.0) pg MCHC 34.2 (31.0-37.0) g/dL RDW 12.0 (11.5-15.5) % Plt Count 290 (150-450) k/uL MPV 7.7 Neutrophils % 71 % Lymphocytes % 22 % Monocytes % 4 % Eosinophils % 1 % Basophils % 0 % Neutrophils # 6.0 (1.3-7.7) k/uL Lymphocytes # 1.8 (1.0-4.8) k/uL Monocytes # 0.3 (0-1.0) k/uL Eosinophils # 0.1 (0-0.7) k/uL Basophils # 0.0 (0-0.2) k/uL Macrocytosis Slight Sodium 134 L (137-145) mmol/L Potassium 4.5 (3.5-5.1) mmol/L Chloride 102 (98-107) mmol/L Carbon Dioxide 21 L (22-30) mmol/L Anion Gap 11 mmol/L BUN 21 H (7-17) mg/dL Creatinine 0.95 (0.52-1.04) mg/dL Est GFR (CKD-EPI)AfAm 64 (>60 ml/min/1.73 sqM) Est GFR (CKD-EPI)NonAf 55 (>60 ml/min/1.73 sqM) Glucose 110 H (74-99) mg/dL Calcium 10.0 (8.4-10.2) mg/dL Total Bilirubin 1.1 (0.2-1.3) mg/dL AST 49 H (14-36) U/L ALT 16 (4-34) U/L Alkaline Phosphatase 116 (38-126) U/L Total Protein 7.6 (6.3-8.2) g/dL Albumin 4.4 (3.5-5.0) g/dL Amylase 45 (30-110) U/L Lipase 75 (23-300) U/L Urine Color Yellow Urine Appearance Clear (Clear) Urine pH 6.0 (5.0-8.0) Ur Specific [place] 1.010 (1.001-1.035) Urine Protein Negative (Negative) Urine Glucose (UA) Negative (Negative) Urine Ketones Negative (Negative) Urine Blood Negative (Negative) Urine Nitrite Negative (Negative) Urine Bilirubin Negative (Negative) Urine Urobilinogen <2.0 (<2.0) mg/dL Ur Leukocyte Esterase Small H (Negative) Urine RBC <1 (0-5) /hpf Urine WBC 3 (0-5) /hpf Ur Squamous Epith Cells 1 (0-4) /hpf Urine Mucus Rare H (None) /hpf Disposition Clinical Impression: Abdominal pain Disposition: ADMITTED IP TO THIS HOSP Referrals: Sammy Velazquez DO [Primary Care Provider] - 1-2 days Time of Disposition: 15:46
[2020-12-11] MEDS: SODIUM CHLORIDE 0.9% 1,000 ML IV ONE ×2 (16:59→18:47)
[2020-12-11] MEDS: DICYCLOMINE 10 MG/ML 2 ML AMP IM SCH ×2 (18:47→23:48)
[2020-12-11] MEDS: metroNIDAZOLE-NS PMX 500 MG in SALINE 1 100ML.BAG IVPB SCH ×2 (18:47→23:49)
[2020-12-11] MEDS ORDERED: diphenhydrAMINE 25 MG CAP PO SCH (21:00)
[2020-12-11] MEDS ORDERED: traMADol 50 MG TAB PO PRN (21:01)
[2020-12-12] MEDS: DICYCLOMINE 10 MG/ML 2 ML AMP IM SCH (05:52)
[2020-12-12] MEDS: metroNIDAZOLE-NS PMX 500 MG in SALINE 1 100ML.BAG IVPB SCH ×3 (05:53→17:11)
[2020-12-12] MEDS ORDERED: PANTOPRAZOLE 40 MG TABLET PO SCH (07:30)
[2020-12-12 08:06] VITALS: RESP 16
[2020-12-12] MEDS ORDERED: LOSARTAN-HCTZ 50-12.5 MG 1 EACH TAB PO SCH (09:00)
[2020-12-12] MEDS ORDERED: amLODIPine 5 MG TAB PO SCH (09:00)
[2020-12-12] MEDS ORDERED: ACETAMINOPHEN TAB 325 MG TAB PO PRN (09:53)
[2020-12-12] MEDS: DICYCLOMINE 10 MG CAP PO SCH ×2 (10:51→15:44)
[2020-12-12] MEDS ORDERED: MAGNESIUM HYDROXIDE 2,400 MG/10 ML CUP PO ONE (10:58)
[2020-12-12] MEDS ORDERED: MAGNESIUM CITRATE 296 ML BOTTLE PO ONE (13:34)
--- NOTE | 2020-12-12 13:34 | P.CONS ---
History of Present Illness - Reason for Consult Consult date: 12/12/20 abdominal pain, constipation Requesting physician: Luis Carlos Nagy - Chief Complaint Abdominal pain - History of Present Illness This is an 85-year-old female who presented to the emergency department with complaints of abdominal pain. Apparently the patient has not had a bowel movement in greater than 5-6 days. She denies any nausea or vomiting associated with the pain. She has a history of chronic constipation and states that she uses milk of magnesia at home as needed. However she has not used any milk of magnesia in the past 6 days. She was recently seen in the emergency department and sent home. She returned because the abdominal pain and constipation was so severe. She states her last colonoscopy was greater than 5 years ago significant for polypectomy. She had normal x-ray that showed retained fecal debris throughout the distribution of the colon. She's been afebrile. WBC 8.4 hemoglobin 14.5 platelet count 290,000 total bilirubin 1.1 AST 49 ALT 16 alkaline phosphatase 116 amylase 45 lipase 75 Review of Systems REVIEW OF SYSTEMS: CARDIOPULMONARY: No chest pain or shortness of breath. Gastrointestinal: Lower abdominal pain. Constipation. No nausea or vomiting. No hematemesis, coffee-ground emesis. No rectal bleeding, or melena. GENITOURINARY: No dysuria or hematuria. MUSCULOSKELETAL: Reports normal range of motion., Joint pain. SKIN: No rashes. No jaundice. ENDOCRINE: No chills, fevers. No excessive weight gain or loss. No polydipsia or polyuria. PSYCHIATRIC: Unremarkable. NEUROLOGY: No change in mental status. Denies dizziness, headache. ENT: Vision unremarkable. CONSTITUTIONAL: No recent weight loss. No fever, chills, night sweats. Past Medical History Past Medical History: Fibromyalgia, Hypertension, Osteoarthritis (OA) History of Any Multi-Drug Resistant Organisms: None Reported Past Surgical History: Appendectomy, Cholecystectomy, Hernia Repair, Hysterectomy, Joint Replacement, Tonsillectomy Additional Past Surgical History / Comment(s): LEFT KNEE REPLACED. Past Anesthesia/Blood Transfusion Reactions: No Reported Reaction Past Psychological History: Anxiety Smoking Status: Never smoker Past Alcohol Use History: None Reported Past Drug Use History: None Reported Medications and Allergies Home Medications Medication Instructions Recorded Confirmed Type traMADol HCL [Ultram] 50 mg PO Q8H PRN 10/06/15 12/11/20 History amLODIPine [Norvasc] 5 mg PO DAILY 09/11/19 12/11/20 History ALPRAZolam [Xanax] 1 mg PO HS 03/05/20 12/11/20 History Cephalexin [Keflex] 500 mg PO BID 12/11/20 12/11/20 History Losartan/Hydrochlorothiazide 1 tab PO DAILY 12/11/20 12/11/20 History [Losartan-Hctz 50-12.5 mg Tab] Acetaminophen Tab [Tylenol] 650 mg PO Q6HR PRN tab 12/12/20 Rx Dicyclomine [Bentyl] 10 mg PO TID #90 cap 12/12/20 Rx Pantoprazole [Protonix] 40 mg PO AC-BRKFST #30 tab 12/12/20 Rx diphenhydrAMINE [Benadryl] 25 mg PO HS cap 12/12/20 Rx metroNIDAZOLE [Flagyl] 250 mg PO TID #21 tab 12/12/20 Rx Allergies Allergy/AdvReac Type Severity Reaction Status Date / Time sulfamethoxazole Allergy Rash/Hives Verified 12/11/20 17:05 [From Bactrim] trimethoprim [From Bactrim] Allergy Rash/Hives Verified 12/11/20 17:05 Physical Exam Vitals: Vital Signs Temp Pulse Pulse Resp BP BP Pulse Ox 12/12/20 07:00 97.7 F 64 16 114/71 98 12/12/20 02:00 97.8 F 63 17 123/54 98 12/12/20 01:04 17 12/11/20 20:00 18 12/11/20 19:38 98 F 72 16 152/77 95 12/11/20 17:34 97.8 F 78 18 145/87 97 12/11/20 15:50 70 16 134/104 98 12/11/20 12:28 97.9 F 94 16 170/124 96 Intake and Output 12/11/20 12/12/20 12/12/20 22:59 06:59 14:59 Other: Voiding Method Toilet Toilet # Voids 2 2 Weight 100.244 kg General appearance: The patient is alert, oriented, appears in no acute distress. HET: Head is normocephalic and atraumatic. Conjunctiva pink. Sclera anicteric. Neck: Supple without lymphadenopathy. Trachea midline. Heart: S1 S2. Regular rate and rhythm. Lungs: Clear to auscultation. Abdomen: Soft, lower abdominal tenderness, nondistended with bowel sounds. No guarding or rigidity. Skin: No rashes. No jaundice. Extremities: Normal skin color and turgor. No pedal edema. Neurological: No focal deficits. Alert and oriented x3. Results CBC & Chem 7: 12/11/20 12:57 12/11/20 12:57 Labs: Abnormal Lab Results - Last 24 Hours (Table) 12/11/20 12/11/20 12/11/20 Range/Units 12:57 12:57 14:09 MCV 106.2 H (80.0-100.0) fL MCH 36.4 H (25.0-35.0) pg Sodium 134 L (137-145) mmol/L Carbon Dioxide 21 L (22-30) mmol/L BUN 21 H (7-17) mg/dL Glucose 110 H (74-99) mg/dL AST 49 H (14-36) U/L Ur Leukocyte Esterase Small H (Negative) Urine Mucus Rare H (None) /hpf Abdominal x-ray: report reviewed (Fecal stasis) Assessment and Plan (1) Abdominal pain Narrative/Plan: 85-year-old female who presented to the emergency department with complaints of abdominal pain. She had an x-ray of the abdomen that showed fecal stasis. She's not had a bowel movement in over 5-6 days. She has a history of chronic constipation states she's been very irregular all her life. She takes milk of magnesia as needed however has not used any milk of magnesia over the last 5-6 days. She was recently seen last week in the emergency department had a CT of t he abdomen and pelvis that showed colonic diverticulosis without diverticulitis. No evidence of acute abdomen. And she was sent home. She states the abdominal pain was too significant and she needed to come back in for further evaluation. Her last colonoscopy was greater than 5 years ago significant for polypectomy. She does not take anything regular at home for her constipation. States she tried MiraLAX in the past but stated it didn't help much. She denies any nausea or vomiting, she's been afebrile, no Current Visit: Yes Status: Acute Code(s): R10.9 - UNSPECIFIED ABDOMINAL PAIN SNOMED Code(s): 76776148 (2) Constipation Current Visit: No Status: Acute Code(s): K59.00 - CONSTIPATION, UNSPECIFIED SNOMED Code(s): 35565801 Plan: 1. Patient may have regular diet 2. Given a dose of milk of magnesia, if no BM will give magnesium citrate 3. Discussed with patient on MiraLAX daily. Titrate to twice a day prn 4. If patient has BM she may be cleared for discharge from gastroenterology Thank you for this consultation. Dr. Bonnie Garnica I agree with the dictator's note, documented as a scribe by Chrissie Hill.
--- NOTE | 2020-12-12 13:39 | P.HPIM ---
History of Present Illness H&P Date: 12/12/20 Chief Complaint: Abdominal pain HISTORY OF PRESENT ILLNESS This is an 85-year-old female patient of Dr. Velazquez with past medical history of hypertension, anxiety. and daughter patient and daughter state the patient has had significant family loss in the past month with loss of her son from a myocardial infarction and sister of old age and grandchild possible suicide with gunshot to the head. She has been under significant st ress and has had decreased appetite and abdominal pain across the upper area and epigastric and lower abdomen as well. She denies any history of ulcers and she has had colitis in the past. Symptoms have been going on for about 2 weeks. She denies having any symptoms of chest pain, shortness of breath or cough. Patient presented to [facility] emergency center for evaluation, initially seen on 12/05 and was discharged home after diagnostic testing. Patient returned on 12/11 with same symptoms. CBC has been unremarkable. AST was 49 but otherwise CMP unremarkable. Urinalysis showed leukoesterase moderate and WBC 13. Urine culture finalized with Klebsiella pneumoniaeand patient was treated with Keflex. 12/05: CT abdomen and pelvis with contrast revealed colonic diverticulosis without diverticulitis. No evidence of acute abdomen and pelvis. Clearing of minimal fat stranding around the proximal sigmoid colon. 12/05: CAT scan angiogram of the chest revealed no evidence pulmonary embolism. Minimal scarring of or subsegmental atelectasis in the right middle lobe and l ingula left upper lobe and at the lateral left lung base. No suspicious pulmonary mass 12/11: KUB correlate for fecal stasis. Scoliosis. Patient was given enema in the emergency center with no results. GI has ordered milk of magnesia REVIEW OF SYSTEMS Constitutional: No fever, no chills, no night sweats. No weight change. No weakness, fatigue or lethargy. No daytime sleepiness. EENT: No headache. No blurred vision or double vision, no loss of vision. No loss of Hearing, no ringing in the ears, no dizziness. No nasal drainage or congestion. No epistaxis. No sore throat. Lungs: No shortness of breath, cough, no sputum production. No wheezing. Cardiovascular: No chest pain, no lower extremity edema. No palpitations. No paroxysmal nocturnal dyspnea. No orthopnea. No lightheadedness or dizziness. No syncopal episodes. Abdominal: Reports abdominal pain. No nausea, vomiting. No diarrhea. No constipation. No bloody or tarry stools. Reports loss of appetite. Genitourinary: No dysuria, increased frequency, urgency. No urinary retention. Musculoskeletal: No myalgias. No muscle weakness, no gait dysfunction, no frequent falls. No back pain. No neck pain. Integumentary: No wounds, no lesions. No rash or pruritus. No unusual bruising. No change in hair or nails. Neurologic: No aphasia. No facial droop. No change in mentation. No head injury. No headache. No paralysis. No paresthesia. Psychiatric: No depression. No anxiety. No mood swings. Endocrine: No abnormal blood sugars. No weight change. No excessive sweating or thirst. No cold intolerance. SOCIAL HISTORY Patient is a lifelong nonsmoker, no marijuana or illicit drug use, no alcohol use. FAMILY HISTORY Father in his 60s from lung cancer. Mother at age 102 from old age. Patient has 2 sisters and one his past with COPD and dementia. One sister is alive with polio syndrome. She did not have any brothers. She has one daughter with no major medical problems. She has one son recently passed at age 62 from myocardial infarction. She has one son with MS, one son with COPD, one son with pancreatitis and degenerative disc disease of spine. PHYSICAL EXAMINATION Gen: This is an 85-year-old female. She is resting in bed and appears to be fairly comfortable. Patient's daughter is at bedside. HEENT: Head is atraumatic, normocephalic. Pupils equal, round. Sclerae is anicteric. NECK: Supple. No JVD. No lymphadenopathy. No thyromegaly. LUNGS: Clear to auscultation. No wheezes or rhonchi. No intercostal retractions. HEART: Regular rate and rhythm. No murmur. ABDOMEN: Soft. Bowel sounds are present. No masses. mild upper abdominal and bilateral lower quadrant tenderness. EXTREMITIES: No pedal edema. No calf tenderness. NEUROLOGICAL: Patient is awake, alert and oriented x3. Cranial nerves 2 through 12 are grossly intact. ASSESSMENT AND PLAN 1. Acute peptic ulcer disease, gastritis, diverticulitis. Patient will be seen by GI and discharge home later today. 2. Fecal stasis, constipation. No results from enema. Milk of magnesia as been ordered, GI consult. 3. 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 Continue Xanax or 0.5 mg at bedtime. 4. Hypertension. Continue Hyzaar 5012 0.5 mg daily. 5. GI prophylaxis. Protonix 40 mg dailyChronic pain syndrome: Has been on gabapentin and hydrocodone. 6. COVID-19 testing negative. Patient has been hospitalized during a pandemic. Observation status. DISCHARGE PLAN Home. Discharge Medication List traMADol HCL [Ultram] 50 mg PO Q8H PRN 10/06/15 [History] amLODIPine [Norvasc] 5 mg PO DAILY 09/11/19 [History] ALPRAZolam [Xanax] 1 mg PO HS 03/05/20 [History] Cephalexin [Keflex] 500 mg PO BID 12/11/20 [History] Losartan/Hydrochlorothiazide [Losartan-Hctz 50-12.5 mg Tab] 1 tab PO DAILY [History] Acetaminophen Tab [Tylenol] 650 mg PO Q6HR PRN tab 12/12/20 [Rx] Dicyclomine [Bentyl] 10 mg PO TID #90 cap 12/12/20 [Rx] Pantoprazole [Protonix] 40 mg PO AC-BRKFST #30 tab 12/12/20 [Rx] diphenhydrAMINE [Benadryl] 25 mg PO HS cap 12/12/20 [Rx] metroNIDAZOLE [Flagyl] 250 mg PO TID #21 tab 12/12/20 [Rx] Impression and plan of care have been directed as dictated by the signing ary hinson. Meghan Jacobs nurse practitioner acting as scribe for signing physician. Past Medical History Past Medical History: Fibromyalgia, Hypertension, Osteoarthritis (OA) History of Any Multi-Drug Resistant Organisms: None Reported Past Surgical History: Appendectomy, Cholecystectomy, Hernia Repair, Hysterec gaetano, Joint Replacement, Tonsillectomy Additional Past Surgical History / Comment(s): LEFT KNEE REPLACED. Past Anesthesia/Blood Transfusion Reactions: No Reported Reaction Past Psychological History: Anxiety Smoking Status: Never smoker Past Alcohol Use History: None Reported Past Drug Use History: None Reported Medications and Allergies Home Medications Medication Instructions Recorded Confirmed Type traMADol HCL [Ultram] 50 mg PO Q8H PRN 10/06/15 12/11/20 History amLODIPine [Norvasc] 5 mg PO DAILY 09/11/19 12/11/20 History ALPRAZolam [Xanax] 1 mg PO HS 03/05/20 12/11/20 History Cephalexin [Keflex] 500 mg PO BID 12/11/20 12/11/20 History Losartan/Hydrochlorothiazide 1 tab PO DAILY 12/11/20 12/11/20 History [Losartan-Hctz 50-12.5 mg Tab] Acetaminophen Tab [Tylenol] 650 mg PO Q6HR PRN tab 12/12/20 Rx Dicyclomine [Bentyl] 10 mg PO TID #90 cap 12/12/20 Rx Pantoprazole [Protonix] 40 mg PO AC-BRKFST #30 tab 12/12/20 Rx diphenhydrAMINE [Benadryl] 25 mg PO HS cap 12/12/20 Rx metroNIDAZOLE [Flagyl] 250 mg PO TID #21 tab 12/12/20 Rx Allergies Allergy/AdvReac Type Severity Reaction Status Date / Time sulfamethoxazole Allergy Rash/Hives Verified 12/11/20 17:05 [From Bactrim] trimethoprim [From Bactrim] Allergy Rash/Hives Verified 12/11/20 17:05 Physical Exam Vitals: Vital Signs Temp Pulse Pulse Resp BP BP Pulse Ox 12/12/20 07:00 97.7 F 64 16 114/71 98 12/12/20 02:00 97.8 F 63 17 123/54 98 12/12/20 01:04 17 12/11/20 20:00 18 12/11/20 19:38 98 F 72 16 152/77 95 12/11/20 17:34 97.8 F 78 18 145/87 97 12/11/20 15:50 70 16 134/104 98 12/11/20 12:28 97.9 F 94 16 170/124 96 Intake and Output 12/11/20 12/12/20 12/12/20 22:59 06:59 14:59 Other: Voiding Method Toilet Toilet # Voids 2 2 Weight 100.244 kg Results CBC & Chem 7: 12/11/20 12:57 12/11/20 12:57 Labs: Abnormal Lab Results - Last 24 Hours (Table) 12/11/20 12/11/20 12/11/20 Range/Units 12:57 12:57 14:09 MCV 106.2 H (80.0-100.0) fL MCH 36.4 H (25.0-35.0) pg Sodium 134 L (137-145) mmol/L Carbon Dioxide 21 L (22-30) mmol/L BUN 21 H (7-17) mg/dL Glucose 110 H (74-99) mg/dL AST 49 H (14-36) U/L Ur Leukocyte Esterase Small H (Negative) Urine Mucus Rare H (None) /hpf Thrombosis Risk Factor Assmnt - Choose All That Apply Each Risk Factor Represents 3 Points: Age 75 years or older Thrombosis Risk Factor Assessment Total Risk Factor Score: 3 Thrombosis Risk Factor Assessment Level: Moderate Risk
[2020-12-12 15:12] VITALS: BP 128/74; PULSE 65; TEMP 98.4
[2020-12-12] MEDS ORDERED: NA PHOS,M-B/NA PHOS,DI-BA 133 ML ENEMA RECTAL STA (17:00)
[2020-12-12] MEDS ORDERED: ALPRAZolam 0.5 MG TAB PO SCH (21:00)
== END 2020-12-12 18:44 | disposition home or self-care (01) ==
LOC: EC 12:23 → 6NMEDSUR 15:58
PROVIDERS: ADMIT Internal Medicine Geriatric Medicine; ATTEND Internal Medicine Geriatric Medicine
DX: K59.09 Other constipation (principal); K63.89 Other specified diseases of intestine; K57.90 Diverticulosis of intestine, part unspecified, without perforation or abscess without bleeding; K27.3 Acute peptic ulcer, site unspecified, without hemorrhage or perforation; K29.70 Gastritis, unspecified, without bleeding; G89.4 Chronic pain syndrome; I10 Essential (primary) hypertension; M41.9 Scoliosis, unspecified; M79.7 Fibromyalgia; M19.90 Unspecified osteoarthritis, unspecified site; F41.9 Anxiety disorder, unspecified; Z20.822 Contact with and (suspected) exposure to COVID-19; Z79.82 Long term (current) use of aspirin; Z79.899 Other long term (current) drug therapy; Z88.1 Allergy status to other antibiotic agents; Z88.2 Allergy status to sulfonamides; Z90.49 Acquired absence of other specified parts of digestive tract; Z90.710 Acquired absence of both cervix and uterus; Z96.652 Presence of left artificial knee joint; Z86.010 Personal history of colon polyps; Z80.1 Family history of malignant neoplasm of trachea, bronchus and lung; Z82.5 Family history of asthma and other chronic lower respiratory diseases; Z82.49 Family history of ischemic heart disease and other diseases of the circulatory system; Z82.61 Family history of arthritis; Z83.79 Family history of other diseases of the digestive system; Z82.0 Family history of epilepsy and other diseases of the nervous system; Z84.89 Family history of other specified conditions; Z63.4 Disappearance and death of family member
CPT/HCPCS: 96361 ×3; 96365; 96366 ×2; 96372; 99285; 36415; 80053; 82150; 83690; 85025; 81001; 87635; 74018; G0378 ×2; J0500

== ENCOUNTER 2022-07-15 05:50 | Emergency (ER) | payer MEDICARE, BC ==
[2022-07-15 05:59] VITALS: TEMP 98.1
--- NOTE | 2022-07-15 06:18 | ED ---
Upper Extremity HPI - General Chief Complaint: Extremity Injury, Upper Stated Complaint: fall, wrist injury Time Seen by Provider: 07/15/22 06:01 Source: patient, family, RN notes reviewed Mode of arrival: wheelchair Limitations: no limitations - History of Present Illness Initial Comments: 86-year-old female presents emergency Department chief complaint of left arm injury. Patient states she tripped over a threshold into the garage. Patient states that she fell onto her left arm chief complaint of pain and swelling to left wrist and left elbow. Denies any head injury no loss conscious. She is [id number]. Patient states she has chronic left shoulder issues but has no increasing pain. No hip pain. - Related Data Home Medications Medication Instructions Recorded Confirmed traMADol HCL [Ultram] 50 mg PO Q8H PRN 10/06/15 12/11/20 amLODIPine [Norvasc] 5 mg PO DAILY 09/11/19 12/11/20 ALPRAZolam [Xanax] 1 mg PO HS 03/05/20 12/11/20 Cephalexin [Keflex] 500 mg PO BID 12/11/20 12/11/20 Losartan/Hydrochlorothiazide 1 tab PO DAILY 12/11/20 12/11/20 [Losartan-Hctz 50-12.5 mg Tab] Previous Rx's Medication Instructions Recorded Acetaminophen Tab [Tylenol] 650 mg PO Q6HR PRN tab 12/12/20 Dicyclomine [Bentyl] 10 mg PO TID #90 cap 12/12/20 Pantoprazole [Protonix] 40 mg PO AC-BRKFST #30 tab 12/12/20 diphenhydrAMINE [Benadryl] 25 mg PO HS cap 12/12/20 metroNIDAZOLE [Flagyl] 250 mg PO TID #21 tab 12/12/20 Allergies Allergy/AdvReac Type Severity Reaction Status Date / Time sulfamethoxazole Allergy Rash/Hives Verified 07/15/22 05:56 [From Bactrim] trimethoprim [From Bactrim] Allergy Rash/Hives Verified 07/15/22 05:56 Review of Systems ROS Statement: Those systems with pertinent positive or pertinent negative responses have been documented in the HPI. ROS Other: All systems not noted in ROS Statement are negative. Past Medical History Past Medical History: Fibromyalgia, Hypertension, Osteoarthritis (OA) History of Any Multi-Drug Resistant Organisms: None Reported Past Surgical History: Appendectomy, Cholecystectomy, Hernia Repair, Hysterectomy, Joint Replacement, Tonsillectomy Additional Past Surgical History / Comment(s): LEFT KNEE REPLACED. Past Anesthesia/Blood Transfusion Reactions: No Reported Reaction Past Psychological History: Anxiety Smoking Status: Never smoker Past Alcohol Use History: None Reported Past Drug Use History: None Reported General Exam Limitations: no limitations General appearance: alert, in no apparent distress Head exam: Present: atraumatic, normocephalic, normal inspection Neck exam: Present: normal inspection, full ROM. Absent: tenderness Respiratory exam: Present: normal lung sounds bilaterally. Absent: respiratory distress, wheezes, rales, rhonchi, stridor Cardiovascular Exam: Present: regular rate, normal rhythm, normal heart sounds. Absent: systolic murmur, diastolic murmur, rubs, gallop, clicks Extremities exam: Present: other (Left wrist there is moderate swelling, mild ecchymosis noted, neurovascular intact tenderness with palpation left elbow also tender with palpation, no proximal humeral tenderness noted) Neurological exam: Present: alert Skin exam: Present: warm, dry, intact, normal color. Absent: rash Course Vital Signs 07/15/22 05:56 Temperature 98.1 F Pulse Rate 79 Respiratory 18 Rate Blood Pressure 140/78 O2 Sat by Pulse 98 Oximetry Procedures - Orthopedic Splinting/Casting Injury #1 Side: left Upper Extremity Injury Location: short arm, wrist Upper Extremity Immobilizer: volar splint, synthetic pre-padded splint Medical Decision Making - Medical Decision Making Was pt. sent in by a medical professional or institution (, PA, ONLINE MARKETING MANAGER, urgent care, hospital, or correction...) When possible be specific @ -No Did you speak to anyone other than the patient for history (EMS, parent, family, police, friend...)? What history was obtained from this source @ -No Did you review nursing and triage notes (agree or disagree)? Why? @ -I reviewed and agree with nursing and triage notes Were old charts reviewed (outside hosp., previous admission, EMS record, old EKG, old radiological studies, urgent care reports/EKG's, correction records)? Report findings @ -No old charts were reviewed Differential Diagnosis (chest pain, altered mental status, abdominal pain women, abdominal pain men, vaginal bleeding, weakness, fever, dyspnea, syncope, headache, dizziness, GI bleed, back pain, seizure, CVA, palpatations, mental health, musculoskeletal)? @ -Wrist fracture, I will fracture, wrist sprain, arm contusion EKG interpreted by me (3pts min.). @ -None X-rays interpreted by me (1pt min.). @ -X-ray of the left wrist and forearm show no acute fracture or dislocation CT interpreted by me (1pt min.). @ -None done U/S interpreted by me (1pt. min.). @ -None done What testing was considered but not performed or refused? (CT, X-rays, U/S, labs)? Why? @ -None What meds were considered but not given or refused? Why? @ -None Did you discuss the management of the patient with other professionals (professionals i.e. , PA, ONLINE MARKETING MANAGER, lab, RT, psych nurse, social services analyst, park maintenance technician, teacher, information technology officer, showcase maker)? Give summary @ -No Was smoking cessation discussed for >3mins.? @ -No Was critical care preformed (if so, how long)? @ -No Were there social determinants of health that impacted care today? How? (Homelessness, low income, unemployed, alcoholism, drug addiction, transportation, low edu. Level, literacy, decrease access to med. care, care home, rehab)? @ -No Was there de-escalation of care discussed even if they declined (Discuss DNR or withdrawal of care, Hospice)? DNR status @ -No What co-morbidities impacted this encounter? (DM, HTN, Smoking, COPD, CAD, Cancer, CVA, ARF, Chemo, Hep., AIDS, mental health diagnosis, sleep apnea, morbid obesity)? @ -None Was patient admitted / discharged? Hospital course, mention meds given and route, prescriptions, significant lab abnormalities, going to OR and other pertinent info. @ -Discharge patient was splinted and given patient's mild swelling, tenderness there is concern for non-subtle fracture though x-ray does not show obvious fracture. She will follow-up with orthopedics Undiagnosed new problem with uncertain prognosis? @ -No Drug Therapy requiring intensive monitoring for toxicity (Heparin, Nitro, Insulin, Cardizem)? @ -No Were any procedures done? @ -[Splinting Diagnosis/symptom? @ -Left wrist injury possible fracture Acute, or Chronic, or Acute on Chronic? @ -Acute Uncomplicated (without systemic symptoms) or Complicated (systemic symptoms)? @ -Uncomplicated Side effects of treatment? @ -No Exacerbation, Progression, or Severe Exacerbation? @ -No Poses a threat to life or bodily function? How? (Chest pain, USA, PR, pneumonia, PE, COPD, DKA, ARF, appy, cholecystitis, CVA, Diverticulitis, Homicidal, Suicidal, threat to staff... and all critical care pts) @ -No Disposition Clinical Impression: Left wrist injury, Left wrist sprain Disposition: HOME SELF-CARE Condition: Stable Instructions (If sedation given, give patient instructions): Wrist Injury (ED) Additional Instructions: Please follow-up with orthopedics as directed.Please return to the Emergency Department if symptoms worsen or any other concerns. Is patient prescribed a controlled substance at d/c from ED?: No Referrals: Sammy Velazquez DO [Primary Care Provider] - 1-2 days Joey Bautista DO [Doctor of Osteopathic Medicine] - 1-2 days Time of Disposition: 07:30
[2022-07-15] MEDS ORDERED: HYDROcodone/APAP 5-325MG 1 EACH TAB PO STA (06:29)
--- NOTE | 2022-07-15 07:13 | XR ---
EXAMINATION TYPE: XR forearm LT, XR wrist complete LT DATE OF EXAM: 07/15/2022 6:27 AM INDICATION: Patient age:Female; 86 years old; Reason for study: pain; COMPARISON: None TECHNIQUE: The left forearm was examined in AP and lateral projections. The left breast was evaluated in frontal lateral and oblique views. FINDINGS: No evidence for acute fracture. There is diffuse osseous demineralization. There is soft t issue swelling around the wrist. IMPRESSION: No discrete fracture visualized. There is soft tissue swelling. If there remains concern consider CT.
[2022-07-15] MEDS ORDERED: ACET/COD 300 MG/30 MG STARTER PACK 6 TAB BTL PO STA (08:15)
[2022-07-15 08:26] VITALS: BP 138/79; PULSE 71; RESP 16
== END 2022-07-15 08:25 | disposition home or self-care (01) ==
LOC: EC 05:50
DX: S63.502A Unspecified sprain of left wrist, initial encounter (principal); I10 Essential (primary) hypertension; M19.90 Unspecified osteoarthritis, unspecified site; F41.9 Anxiety disorder, unspecified; Z79.899 Other long term (current) drug therapy; Z88.2 Allergy status to sulfonamides; Z88.8 Allergy status to other drugs, medicaments and biological substances; W01.0XXA Fall on same level from slipping, tripping and stumbling without subsequent striking against object, initial encounter
CPT/HCPCS: 99283

== ENCOUNTER → 2022-09-22 | Outpatient (CLI) | payer MEDICARE, BC ==
--- NOTE | 2022-09-24 09:04 | MR ---
EXAMINATION TYPE: MR lumbar spine wo con DATE OF EXAM: 09/22/2022 7:48 PM COMPARISON: NONE HISTORY: Low back pain Multiplanar, MultiSpin echo imaging of the lumbar spine was performed. L1-L2: Moderate to severe disc desiccation with posterior disc bulge. Mild effacement ventral thecal sac without evidence for central stenosis or lateral recess stenosis. There is grade 1 retrolisthesis measuring 3 mm. Severe facet joint arthropathy. L2-L3: Moderate to severe disc desiccation with posterior disc bulge. Mild effacement ventral thecal sac without evidence for central stenosis or lateral recess stenosis. There is grade 1 retrolisthesis measuring 3 mm. Severe facet joint arthropathy. Severe right-sided neural foraminal encroachment. L3-L4: Moderate to severe disc desiccation with posterior disc bulge. Mild effacement ventral thecal sac without evidence for central stenosis or lateral recess stenosis. There is grade 1 retrolisthesis measuring 2 mm. Severe facet joint arthropathy. Mild right-sided neural foraminal encroachment. L4-L5: Moderate to severe disc desiccation with posterior disc bulge. Mild effacement ventral thecal sac without evidence for central stenosis or lateral recess stenosis. Normal alignment. Severe facet joint arthropathy. Bilateral neural foraminal encroachment. L5-S1: Moderate to severe disc desiccation with posterior disc bulge. Mild effacement ventral thecal sac without evidence for central stenosis or lateral recess stenosis. Severe facet joint arthropathy. Lateral bilateral neural foraminal encroachment. Lumbar segments are intact. No paraspinal masses are identified. Conus medullaris has a normal appe arance. Curvature seen convex to the left. Ventral spondylosis and degenerative endplate marrow maria e. IMPRESSION: 1. Multilevel degenerative disc disease with disc bulging and facet joint arthropathy. No evidence fo r central stenosis however multilevel foraminal encroachment.
== END | disposition home or self-care (01) ==
LOC: RADMRIMAIN 18:57
PROVIDERS: ATTEND Orthopaedic Surgery
DX: M51.36 Other intervertebral disc degeneration, lumbar region (principal); M47.816 Spondylosis without myelopathy or radiculopathy, lumbar region
CPT/HCPCS: 72148

== ENCOUNTER → 2022-10-29 | Outpatient (CLI) | payer MEDICARE, BC ==
[2022-10-29 10:14] VITALS: BP 132/83; PULSE 49; RESP 16; TEMP 98.1
--- NOTE | 2022-10-29 14:51 | P.PAINPG ---
PQRS Measure Charge Sheet Comment: HISTORY OF PRESENT ILLNESS: 87 yr old female as a referral from Dr Garcia presents today w severe and chronic LBP secondary to DDD, spondylosis and facet arthropathy without myelopathy for evaluation. Pt states pain level is provoked at 8 /10 in intensity, constant, localized in the lower lumbar spine, sharp in character w shooting pain towards the RLE. Pain is provoked by walking for periods of 5 min or more. Pain is alleviated by medications (Tramadol, Celebrex), PT in 2018, chiropractic treatments semi weekly x 1 yr w last visit in Aug 2022, ice, repositioning and rest. Oswestry axial pain score at . PMH: OA, Fibromyalgia, HTN, OA, Anxiety PSH: Appendectomy, Cholecystectomy, Hernia Repair, Hysterectomy, L Knee Replacement, Tonsillectomy SH: Negative x3 FH: Non contributory All: See list Meds: See list REVIEW OF ORGAN SYSTEMS: CONSTITUTIONAL: No fevers or chills. No recent weight loss. NEUROLOGICAL: + numbness and tingling along the distal extremities. No seizure disorders or headaches. MUSCULOSKELETAL: + pain PSYCHIATRIC: Denies current depression or suicidal thoughts. Physical Examinations : Constitutional : Cooperative , not in acute distress . Neurologic : Cranial nerve II to XII intact. No focal neurological deficits. Psychiatric : alert & oriented x 3. Matching mood & appropriate affect. Judgment & insight intact. Musculoskeletal : Cervical Spine Motor strength in the deltoid and biceps: Normal right side. Normal Left side Motor strength biceps and the wrist extensors: Normal right side . Normal left side Motor strength in the triceps muscle: Normal right side. Normal left side Deep tendon reflexes: Normal at the biceps. Normal at Brachioradialis. Normal at triceps Vertebral body tenderness to deep palpation over Cervical facet loading test: positive bilaterally Spurling test: positive bilaterally Neck distraction test: positive bilaterally Bailey sign: positive bilaterally Lumbar spine Motor strength lower extremities ,thigh and legs 5/5 Right side , 5/5 Left side Deep tendon reflexes : Normal Knee Jerk. Normal Ankle Jerk Vertebral body tenderness over Foley Test positive Lumbar facet Loading Test: positive Right / positive Left Range of motion of the lumbar spine Flexion 30 degrees, extension 10 degrees Straight Leg Raise test: Left/ Right positive at degree Padmini test: positive right / positive left. Severe tenderness over the Sacroiliac joint on the Right / Left sides Gaenslen test: positive bilaterally Seated flexion test: positive bilaterally. Sacral spine : Severe tenderness over the Sacroiliac joint: right side / left side Range of motion: Flexion of the lumbar spine <60 degrees Range of motion: Extension of the lumbar spine <20 degrees Gaenslen's Test positive Jose Alejandro's Test positive Padmini test: positive right side / left side Thigh Thrust Test Sacral Thrust Test Imaging: MRI without contrast of the lumbar spine from 09/22/22 reviewed Assessment/ Plan : Lumbar DDD Recommendation of medication management. Tramadol 50mg #120 w 1 RF. Use, side effects, adverse reactions and safe storage discussed. Opiate/ narcotic agreement signed today 10/29/22. All questions answered. I have spent greater than 30 minutes on patient care today. Dr Hernández was available by phone for the evaluation of this patient. The time was used to review the medical records including relevant urine studies and Prescription history (MAPs), review of the available imaging, evaluation and examination of the patient, coordination of care with the medical staff and if applicable referring physicians, as well as creation of the medical record PQRS Narrative: Smoking Status Never smoker Home Medications: Ambulatory Orders ALPRAZolam [Xanax] 1 mg PO HS 03/05/20 Cephalexin [Keflex] 500 mg PO BID 12/11/20 Losartan/Hydrochlorothiazide [Losartan-Hctz 50-12.5 mg Tab] 1 tab PO DAILY 12/11/20 Acetaminophen Tab [Tylenol] 650 mg PO Q6HR PRN tab 12/12/20 Celecoxib [CeleBREX] 200 mg PO BID 10/29/22 traMADol HCL 50 mg PO BID PRN 30 Days #120 tab 10/29/22 Controlled Substance Measures - Controlled Substance Measures Is patient prescribed a controlled substance at discharge?: Yes When asked, does pt state using other controlled substances?: Yes If prescribed controlled substance>3 days was MAPS reviewed?: Yes If Rx opioid, was Start Talking consent form obtained?: Yes Was information provided regarding opioid addiction?: Yes
== END ==
LOC: PNWHC3 09:04
PROVIDERS: ATTEND Anesthesiology
DX: M51.36 Other intervertebral disc degeneration, lumbar region (principal); M48.062 Spinal stenosis, lumbar region with neurogenic claudication; M54.50 Low back pain, unspecified; M19.90 Unspecified osteoarthritis, unspecified site; I10 Essential (primary) hypertension; F41.9 Anxiety disorder, unspecified; M79.7 Fibromyalgia; Z88.2 Allergy status to sulfonamides; Z88.8 Allergy status to other drugs, medicaments and biological substances; Z79.899 Other long term (current) drug therapy
CPT/HCPCS: 99211

== ENCOUNTER → 2022-12-24 | Outpatient (CLI) | payer MEDICARE, BC ==
[2022-12-24 09:49] VITALS: BP 121/81; PULSE 73; RESP 16; TEMP 98.2
--- NOTE | 2022-12-24 12:21 | P.PAINPG ---
PQRS Measure Charge Sheet Comment: HISTORY OF PRESENT ILLNESS: An 87 yr old female presents today w severe and chronic LBP secondary to DDD, spondylosis and facet arthropathy without myelopathy for medication refills. Pt states pain level is provoked at 9 /10 in intensity, constant, localized in the lower lumbar spine, sharp in character w shooting pain towards the RLE. Pain is provoked by walking for periods of 5 min or more. Pain is alleviated by medications, PT in 2018, chiropractic treatments semi weekly x 1 yr w last visit in Aug 2022, ice, repositioning and rest. Interventional procedures include DENIES Medications include Tramadol 50mg #120, Tyl Arth, Celebrex REVIEW OF ORGAN SYSTEMS: CONSTITUTIONAL: No fevers or chills. No recent weight loss. NEUROLOGICAL: + numbness and tingling along the distal extremities. No seizure disorders or headaches. MUSCULOSKELETAL: + pain PSYCHIATRIC: Denies current depression or suicidal thoughts. Physical Examinations : Constitutional : Cooperative , not in acute distress . Neurologic : Cranial nerve II to XII intact. No focal neurological deficits. Psychiatric : alert & oriented x 3. Matching mood & appropriate affect. Judgment & insight intact. Musculoskeletal : Cervical Spine Motor strength in the deltoid and biceps: Normal right side. Normal Left side Motor strength biceps and the wrist extensors: Normal right side . Normal left side Motor strength in the triceps muscle: Normal right side. Normal left side Deep tendon reflexes: Normal at the biceps. Normal at Brachioradialis. Normal at triceps Vertebral body tenderness to deep palpation over Cervical facet loading test: positive bilaterally Spurling test: positive bilaterally Neck distraction test: positive bilaterally Bailey sign: positive bilaterally Lumbar spine Motor strength lower extremities ,thigh and legs 5/5 Right side , 5/5 Left side Deep tendon reflexes : Normal Knee Jerk. Normal Ankle Jerk Vertebral body tenderness over Foley Test positive Lumbar facet Loading Test: positive Right / positive Left Range of motion of the lumbar spine Flexion 30 degrees, extension 10 degrees Straight Leg Raise test: Left/ Right positive at degree Padmini test: positive right / positive left. Severe tenderness over the Sacroiliac joint on the Right / Left sides Gaenslen test: positive bilaterally Seated flexion test: positive bilaterally. Sacral spine : Severe tenderness over the Sacroiliac joint: right side / left side Range of motion: Flexion of the lumbar spine <60 degrees Range of motion: Extension of the lumbar spine <20 degrees Gaenslen's Test positive Jose Alejandro's Test positive Padmini test: positive right side / left side Thigh Thrust Test Sacral Thrust Test Imaging: MRI without contrast of the lumbar spine from 09/22/22 reviewed Assessment/ Plan : Lumbar DDD Recommendation of medication management. Tramadol 50mg #90 w 1 RF. Reducing quantity as pt is not taking medication as frequently. Use, side effects, adverse reactions and safe storage discussed. Opiate/ narcotic agreement signed today 10/29/22. All questions answered. I have spent greater than 30 minutes on patient care today. Dr Hernández was available by phone for the evaluation of this patient. The time was used to review the medical records including relevant urine studies and Prescription history (MAPs), review of the available imaging, evaluation and examination of the patient, coordination of care with the medical staff and if applicable referring physicians, as well as creation of the medical record PQRS Narrative: Smoking Status Never smoker Home Medications: Ambulatory Orders ALPRAZolam [Xanax] 1 mg PO HS 03/05/20 Cephalexin [Keflex] 500 mg PO BID 12/11/20 Losartan/Hydrochlorothiazide [Losartan-Hctz 50-12.5 mg Tab] 1 tab PO DAILY 12/11/20 Acetaminophen Tab [Tylenol] 650 mg PO Q6HR PRN tab 12/12/20 Celecoxib [CeleBREX] 200 mg PO BID 10/29/22 traMADol HCL 50 mg PO BID PRN 30 Days #120 tab 10/29/22 Controlled Substance Measures - Controlled Substance Measures Is patient prescribed a controlled substance at discharge?: Yes When asked, does pt state using other controlled substances?: No If prescribed controlled substance>3 days was MAPS reviewed?: Yes
== END ==
LOC: PNWHC3 09:16
PROVIDERS: ATTEND Specialist
DX: M51.36 Other intervertebral disc degeneration, lumbar region (principal); Z88.2 Allergy status to sulfonamides; Z88.1 Allergy status to other antibiotic agents
CPT/HCPCS: 99211

== ENCOUNTER → 2023-04-07 | Outpatient (CLI) | payer MEDICARE, BC ==
[2023-04-07 11:44] VITALS: BP 143/80; PULSE 55; RESP 15; TEMP 97.9
--- NOTE | 2023-04-07 15:00 | P.PAINPG ---
PQRS Measure Charge Sheet Comment: HISTORY OF PRESENT ILLNESS: An 87 yr old female presents today w severe and chronic LBP secondary to DDD, spondylosis and facet arthropathy without myelopathy for medication refills. Pt states pain level is provoked at 9 /10 in intensity, constant, localized in the lower lumbar spine, predominantly axial, sharp in character without shooting pain. Pain is provoked by walking for periods of 5 min or more. Pain is alleviated by medications, PT in 2018, chiropractic treatments semi weekly x 1 yr w last visit in Aug 2022, ice, repositioning and rest. Oswestry axial pain score of 34. Interventional procedures include DENIES Medications include Tramadol 50mg #120, Tyl Arth, Celebrex REVIEW OF ORGAN SYSTEMS: CONSTITUTIONAL: No fevers or chills. No recent weight loss. NEUROLOGICAL: + numbness and tingling along the distal extremities. No seizure disorders or headaches. MUSCULOSKELETAL: + pain PSYCHIATRIC: Denies current depression or suicidal thoughts. Physical Examinations : Constitutional : Cooperative , not in acute distress . Neurologic : Cranial nerve II to XII intact. No focal neurological deficits. Psychiatric : alert & oriented x 3. Matching mood & appropriate affect. Judgment & insight intact. Musculoskeletal : Cervical Spine Motor strength in the deltoid and biceps: Normal right side. Normal Left side Motor strength biceps and the wrist extensors: Normal right side . Normal left side Motor strength in the triceps muscle: Normal right side. Normal left side Deep tendon reflexes: Normal at the biceps. Normal at Brachioradialis. Normal at triceps Vertebral body tenderness to deep palpation over Cervical facet loading test: positive bilaterally Spurling test: positive bilaterally Neck distraction test: positive bilaterally Bailey sign: positive bilaterally Lumbar spine Motor strength lower extremities ,thigh and legs 5/5 Right side , 5/5 Left side Deep tendon reflexes : Normal Knee Jerk. Normal Ankle Jerk Vertebral body tenderness over Foley Test positive Lumbar facet Loading Test: positive BL L4-L5, L5-S1 Range of motion of the lumbar spine Flexion 30 degrees, extension 10 degrees Straight Leg Raise test: Left/ Right positive at degree Padmini test: positive right / positive left. Severe tenderness over the Sacroiliac joint on the Right / Left sides Gaenslen test: positive bilaterally Seated flexion test: positive bilaterally. Sacral spine : Severe tenderness over the Sacroiliac joint: right side / left side Range of motion: Flexion of the lumbar spine <60 degrees Range of motion: Extension of the lumbar spine <20 degrees Gaenslen's Test positive Jose Alejandro's Test positive Padmini test: positive right side / left side Thigh Thrust Test Sacral Thrust Test Imaging: MRI without contrast of the lumbar spine from 09/22/22 reviewed Assessment/ Plan : Lumbar DDD Recommendation of BL MBB L4-L5, L5-S1 #1 and medication management. Will need a series of injections, up until RFA, for optimal pain relief. Risks, benefits of procedure discussed and pt verbalized understanding. Tramadol 50mg #90 w 1 RF. Reducing quantity as pt is not taking medication as frequently. Use, side effects, adverse reactions and safe storage discussed. Opiate/ narcotic agreement signed today 10/29/22. All questions answered. I have spent greater than 30 minutes on patient care today. Dr Hernández was available by phone for the evaluation of this patient. The time was used to review the medical records including relevant urine studies and Prescription history (MAPs), review of the available imaging, evaluation and examination of the patient, coordination of care with the medical staff and if applicable referring physicians, as well as creation of the medical record PQRS Narrative: Smoking Status Never smoker Narcotic Agreement Date Signed 10/29/22 Hx Alcohol Use (MH) No Home Medications: Ambulatory Orders ALPRAZolam [Xanax] 1 mg PO HS 03/05/20 Cephalexin [Keflex] 500 mg PO BID 12/11/20 Losartan/Hydrochlorothiazide [Losartan-Hctz 50-12.5 mg Tab] 1 tab PO DAILY 12/11/20 Acetaminophen Tab [Tylenol] 650 mg PO Q6HR PRN tab 12/12/20 Celecoxib [CeleBREX] 200 mg PO BID 10/29/22 traMADol HCL 50 mg PO TID PRN 30 Days #90 tab 03/25/23 Controlled Substance Measures - Controlled Substance Measures Is patient prescribed a controlled substance at discharge?: No
== END ==
LOC: PNWHC3 10:57
PROVIDERS: ATTEND Anesthesiology
DX: M51.37 Other intervertebral disc degeneration, lumbosacral region (principal); Z88.2 Allergy status to sulfonamides; Z88.1 Allergy status to other antibiotic agents
CPT/HCPCS: 99211

== ENCOUNTER 2023-05-14 08:04 | Day surgery (SDC) | payer MEDICARE, BC ==
[2023-05-14 08:35] VITALS: TEMP 97.7
[2023-05-14] MEDS: LACTATED RINGERS 1,000 ML IV SCH (08:43)
[2023-05-14] MEDS ORDERED: MIDAZOLAM 2 MG/2 ML VIAL ONE (09:06)
[2023-05-14] MEDS ORDERED: fentaNYL (PF) 50 MCG/ML 2 ML AMP ONE (09:06)
[2023-05-14] MEDS ORDERED: ROPIVACAINE 5MG/ML 20ML VIAL ONE (09:09)
--- NOTE | 2023-05-14 09:22 | P.PCN ---
Date of Procedure: 05/14/23 Procedure(s) Performed: PREOPERATIVE DIAGNOSIS : 1- Lumbar spondylosis with Facet Arthropathy with out myelopathy . 2- Lumber degenerative disc disease POSTOPERATIVE DIAGNOSIS: 1- Lumbar spondylosis with Facet Arthropathy without myelopathy . 2- Lumber degenerative disc disease PROCEDURE: Diagnostic bilateral L3 , L4 , L5 medial branch block under fluoroscopy guidance(fluoroscopy images available in the radiology Department ) ( To target the facet joint between Bilateral L4-5 , and L5- S1 )# 1st ANESTHESIA:, Monitored anesthesia care as per anesthesia department. EBL: Minimal COMPLICATION: None PROCEDURE INDICATION: Chronic low back pain secondary to Facet arthropathy unresponsive to conservative treatment. PROCEDURE DESCRIPTION: the patient was seen and identified in the preop holding area , risks and benefits and possible complications of the procedure and alternative were discussed with the patient, and the patient agreed to proceed with the procedure and signed the consent and vital signs monitored during the procedure and fluoroscopy was used to maximize the benefit and accuracy of the needle placement, and sedation was given to decrease patient anxiety, patient was taken to the procedure room and placed in prone position vital signs monitored in the back prepped with chlorhexidine X3 then under strict sterile technique using a right oblique fluoroscopy ,the junction of the transverse process and the superior articulating process of the right L3 , L4 , and L5 vertebra which corresponding to the fluoroscopy image of the eye of the Sunny dog on the block side for the medial branches and subsequently , after local infiltration of skin and subcu tissuies with Ropivacaine 0.5 % , one mL at each level ,then 22-gauge Quincke-type needles , 3 needle was used , each one of them placed at the junction of the base of the transverse process and the superior articular process at the appropriate level, and the needle was advanced until the periosteum contacted, needle placement confirmed with AP oblique and lateral view and after appropriate needle placement confirmed, and after negative aspiration for heme and CSF and there was no paresthesia 1-1/2 mL of Ropivacaine 0.5% used , then half mL injected at each level after negative aspiration the needle subsequently removed and the same procedure repeated for the left side at left side at L3 , L4 and L5 levels. At the end of the procedure and the needles removed and a bandage applied after the skin was cleaned the cleaning solution patient taken to recovery room in stable condition and monitors in the recovery room for 20-30 minutes and discharged home in stable condition after discharge criteria met and patient will follow up with the pain clinic in 2-4 weeks
[2023-05-14] MEDS: LACTATED RINGERS 1,000 ML IV ONE (09:25)
[2023-05-14 09:46] VITALS: BP 126/63; RESP 16
[2023-05-14 09:47] VITALS: PULSE 60
--- NOTE | 2023-05-14 10:54 | FL ---
EXAMINATION TYPE: FL guided pain mgmt statistic Intraoperative/procedural fluoroscopic services were provided. Total fluoroscopy time is 8.4 seconds with a total of 4 submitted images to PACS. Please se e the operative/procedural note for further details. DAP: [id number] mGym2
== END 2023-05-14 10:01 | disposition home or self-care (01) ==
LOC: ORPAIN 08:04
PROVIDERS: ATTEND Specialist
DX: M51.36 Other intervertebral disc degeneration, lumbar region (principal); M47.816 Spondylosis without myelopathy or radiculopathy, lumbar region; G89.29 Other chronic pain; I10 Essential (primary) hypertension; M79.7 Fibromyalgia; Z96.652 Presence of left artificial knee joint; Z90.710 Acquired absence of both cervix and uterus; Z90.49 Acquired absence of other specified parts of digestive tract; Z88.2 Allergy status to sulfonamides; Z98.890 Other specified postprocedural states; Z79.899 Other long term (current) drug therapy; Z79.82 Long term (current) use of aspirin
CPT/HCPCS: 99152; 64494 ×2; 64493; J2250; J3010; J2795

== ENCOUNTER → 2023-05-26 | Outpatient (CLI) | payer MEDICARE, BC ==
[2023-05-26 12:11] VITALS: BP 145/70; PULSE 53; RESP 15; TEMP 98.4
--- NOTE | 2023-05-26 14:37 | P.PAINPG ---
PQRS Measure Charge Sheet Comment: HISTORY OF PRESENT ILLNESS: An 87 yr old female presents today w severe and chronic LBP secondary to DDD, spondylosis and facet arthropathy without myelopathy for medication refills and follow up for BL MBB L3-L5 #1. Pt states she experienced 100 % pain relief x 6 hrs s/p procedure. Pt states pain level is provoked at 8 /10 in intensity, constant, localized in the lower lumbar spine, predominantly axial, sharp in character without shooting pain. Pain is provoked by walking for periods of 5 min or more. Pain is alleviated by medications, PT in 2018, chiropractic treatments semi weekly x 1 yr w last visit in Aug 2022, ice, repositioning and rest. Oswestry axial pain score of 33. Interventional procedures include BL MBB L3-L5 x1 Medications include Tramadol 50mg #90, Tyl Arth, Celebrex REVIEW OF ORGAN SYSTEMS: CONSTITUTIONAL: No fevers or chills. No recent weight loss. NEUROLOGICAL: + numbness and tingling along the distal extremities. No seizure disorders or headaches. MUSCULOSKELETAL: + pain PSYCHIATRIC: Denies current depression or suicidal thoughts. Physical Examinations : Constitutional : Cooperative , not in acute distress . Neurologic : Cranial nerve II to XII intact. No focal neurological deficits. Psychiatric : alert & oriented x 3. Matching mood & appropriate affect. Judgment & insight intact. Musculoskeletal : Cervical Spine Motor strength in the deltoid and biceps: Normal right side. Normal Left side Motor strength biceps and the wrist extensors: Normal right side . Normal left side Motor strength in the triceps muscle: Normal right side. Normal left side Deep tendon reflexes: Normal at the biceps. Normal at Brachioradialis. Normal at triceps Vertebral body tenderness to deep palpation over Cervical facet loading test: positive bilaterally Spurling test: positive bilaterally Neck distraction test: positive bilaterally Bailey sign: positive bilaterally Lumbar spine Motor strength lower extremities ,thigh and legs 5/5 Right side , 5/5 Left side Deep tendon reflexes : Normal Knee Jerk. Normal Ankle Jerk Vertebral body tenderness over Foley Test positive Lumbar facet Loading Test: positive BL L4-L5, L5-S1 Range of motion of the lumbar spine Flexion 30 degrees, extension 10 degrees Straight Leg Raise test: Left/ Right positive at degree Padmini test: positive right / positive left. Severe tenderness over the Sacroiliac joint on the Right / Left sides Gaenslen test: positive bilaterally Seated flexion test: positive bilaterally. Sacral spine : Severe tenderness over the Sacroiliac joint: right side / left side Range of motion: Flexion of the lumbar spine <60 degrees Range of motion: Extension of the lumbar spine <20 degrees Gaenslen's Test positive Jose Alejandro's Test positive Padmini test: positive right side / left side Thigh Thrust Test Sacral Thrust Test Imaging: MRI without contrast of the lumbar spine from 09/22/22 reviewed Assessment/ Plan : Lumbar DDD Recommendation of BL MBB L4-L5, L5-S1 #2 and medication management. Will need a series of injections, up until RFA, for optimal pain relief. Risks, benefits of procedure discussed and pt verbalized understanding. Tramadol 50mg #90 w 1 RF. Reducing quantity as pt is not taking medication as frequently. Use, side effects, adverse reactions and safe storage discussed. Opiate/ narcotic agreement signed today 10/29/22. All questions answered. I have spent greater than 30 minutes on patient care today. Dr Hernández was available by phone for the evaluation of this patient. The time was used to review the medical records including relevant urine studies and Prescription history (MAPs), review of the available imaging, evaluation and examination of the patient, coordination of care with the medical staff and if applicable referring physicians, as well as creation of the medical record PQRS Narrative: Smoking Status Never smoker Narcotic Agreement Date Signed 10/29/22 Hx Alcohol Use (MH) No Home Medications: Ambulatory Orders ALPRAZolam [Xanax] 1 mg PO HS 03/05/20 traMADol HCL 50 mg PO TID PRN 30 Days #90 tab 04/07/23 Acetaminophen [Tylenol Arthritis] 650 mg PO DIRECTED PRN 05/11/23 Aspirin 81 mg PO DAILY 05/11/23 Losartan/Hydrochlorothiazide [Losartan-Hctz 100-12.5 mg Tab] 1 tab PO DAILY 05/11/23 Magnesium 250 mg PO DAILY 05/11/23 Vit C/E/Zn/Coppr/Lutein/Zeaxan [Preservision Areds 2 Softgel] 1 each PO DAILY 05/11/23 Controlled Substance Measures - Controlled Substance Measures Is patient prescribed a controlled substance at discharge?: Yes When asked, does pt state using other controlled substances?: No If prescribed controlled substance>3 days was MAPS reviewed?: Yes
== END ==
LOC: PNWHC3 09:10
PROVIDERS: ATTEND Specialist
DX: M51.37 Other intervertebral disc degeneration, lumbosacral region (principal); Z88.2 Allergy status to sulfonamides; Z88.1 Allergy status to other antibiotic agents
CPT/HCPCS: 99211

== ENCOUNTER 2023-06-25 09:39 | Day surgery (SDC) | payer MEDICARE, BC ==
[2023-06-24 09:27] VITALS: BMI 31.1
[2023-06-25] MEDS: LACTATED RINGERS 1,000 ML IV ONE (10:05)
[2023-06-25] MEDS ORDERED: MIDAZOLAM 2 MG/2 ML VIAL ONE (10:08)
[2023-06-25] MEDS ORDERED: fentaNYL (PF) 50 MCG/ML 2 ML AMP ONE (10:08)
[2023-06-25] MEDS ORDERED: ROPIVACAINE 5MG/ML 20ML VIAL ONE (10:13)
--- NOTE | 2023-06-25 10:25 | P.PCN ---
Date of Procedure: 06/25/23 Procedure(s) Performed: PREOPERATIVE DIAGNOSIS : 1- Lumbar spondylosis with Facet Arthropathy without myelopathy . 2- Lumber degenerative disc disease POSTOPERATIVE DIAGNOSIS: 1- Lumbar spondylosis with Facet Arthropathy without myelopathy . 2- Lumber degenerative disc disease PROCEDURE: Diagnostic bilateral L3 , L4 , L5 medial branch block under fluoroscopy guidance(fluoroscopy images available in the radiology Department ) ( To target the facet joint between Bilateral L4-5 , and L5- S1 )#2nd ANESTHESIA:, Monitored anesthesia care as per anesthesia department. EBL: Minimal COMPLICATION: None PROCEDURE INDICATION: Chronic low back pain secondary to Facet arthropathy unresponsive to conservative treatment. PROCEDURE DESCRIPTION: the patient was seen and identified in the preop holding area , risks and benefits and possible complications of the procedure and alternative were discussed with the patient, and the patient agreed to proceed with the procedure and signed the consent and vital signs monitored during the procedure and fluoroscopy was used to maximize the benefit and accuracy of the needle placement, and sedation was given to decrease patient anxiety, patient was taken to the procedure room and placed in prone position v ital signs monitored in the back prepped with chlorhexidine X3 then under strict sterile technique using a right oblique fluoroscopy ,the junction of the transverse process and the superior articulating process of the right L3 , L4 , and L5 vertebra which corresponding to the fluoroscopy image of the eye of the Sunny dog on the block side for the medial branches and subsequently , after local infiltration of skin and subcu tissuies with Ropivacaine 0.5 % , one mL at each level ,then 22-gauge Quincke-type needles , 3 needle was used , each one of them placed at the junction of the base of the transverse process and the superior articular process at the appropriate level, and the needle was advanced until the periosteum contacted, needle placement confirmed with AP oblique and lateral view and after appropriate needle placement confirmed, and after negative aspiration for heme and CSF and there was no paresthesia 1-1/2 mL of Ropivacaine 0.5% used , then half mL injected at each level after negative aspiration the needle subsequently removed and the same procedure repeated for the left side at left side at L3 , L4 and L5 levels. At the end of the procedure and the needles removed and a bandage applied after the skin was cleaned the cleaning solution patient taken to recovery room in stable condition and monitors in the recovery room for 20-30 minutes and discharged home in stable condition after discharge criteria met and patient will follow up with the pain clinic in 2-4 weeks
[2023-06-25 10:26] VITALS: TEMP 97.4
[2023-06-25] MEDS ORDERED: LACTATED RINGERS 1,000 ML IV SCH (10:33)
[2023-06-25 11:13] VITALS: RESP 16
[2023-06-25 11:59] VITALS: BP 117/62; PULSE 47
--- NOTE | 2023-06-25 18:50 | FL ---
EXAMINATION TYPE: FL guided pain mgmt statistic DATE OF EXAM: 06/25/2023 FLUOROSCOPY FACET BLOCK BILATERAL, FLUORO TIME 13 SECONDS, .[id number] mGycm2 DAP. 4 images.
== END 2023-06-25 11:44 ==
LOC: ORPAIN 09:39
PROVIDERS: ATTEND Specialist
DX: M47.816 Spondylosis without myelopathy or radiculopathy, lumbar region (principal); M51.36 Other intervertebral disc degeneration, lumbar region; G89.29 Other chronic pain; I10 Essential (primary) hypertension; M79.7 Fibromyalgia; F41.9 Anxiety disorder, unspecified; M19.90 Unspecified osteoarthritis, unspecified site; Z79.1 Long term (current) use of non-steroidal anti-inflammatories (NSAID); Z79.899 Other long term (current) drug therapy; Z88.1 Allergy status to other antibiotic agents; Z79.82 Long term (current) use of aspirin; Z88.2 Allergy status to sulfonamides
CPT/HCPCS: 64493; 64494 ×2; J2250; J3010; J2795

== ENCOUNTER → 2023-06-30 | Outpatient (CLI) | payer MEDICARE, BC ==
[2023-06-30 13:22] VITALS: BP 119/58; PULSE 59; RESP 16; TEMP 96.9
--- NOTE | 2023-06-30 13:37 | P.PAINPG ---
PQRS Measure Charge Sheet Comment: HISTORY OF PRESENT ILLNESS: An 87 yr old female presents today w severe and chronic LBP secondary to DDD, spondylosis and facet arthropathy without myelopathy for medication refills and follow up for BL MBB L3-L5 #2 and medication refills. Pt states she experienced 100 % pain relief x 6 hrs s/p procedure. Pt states pain level is provoked at 8 /10 in intensity, constant, localized in the lower lumbar spine, predominantly axial, sharp in character without shooting pain. Pain is provoked by walking for periods of 5 min or more. Pain is alleviated by medications, topical, PT in 2018, chiropractic treatments semi weekly x 1 yr w last visit in Aug 2022, ice, repositioning and rest. Pt was discharged from chiropractic treatments w a physician guided home stretching program she does 5 times a week since Aug 2022. Oswestry axial pain score of 32. Interventional procedures include BL MBB L3-L5 x2 Medications include Tramadol 50mg #90, Tyl Arth, Celebrex, Allen Emu REVIEW OF ORGAN SYSTEMS: CONSTITUTIONAL: No fevers or chills. No recent weight loss. NEUROLOGICAL: + numbness and tingling along the distal extremities. No seizure disorders or headaches. MUSCULOSKELETAL: + pain PSYCHIATRIC: Denies current depression or suicidal thoughts. Physical Examinations : Constitutional : Cooperative , not in acute distress . Neurologic : Cranial nerve II to XII intact. No focal neurological deficits. Psychiatric : alert & oriented x 3. Matching mood & appropriate affect. Judgment & insight intact. Musculoskeletal : Cervical Spine Motor strength in the deltoid and biceps: Normal right side. Normal Left side Motor strength biceps and the wrist extensors: Normal right side . Normal left side Motor strength in the triceps muscle: Normal right side. Normal left side Deep tendon reflexes: Normal at the biceps. Normal at Brachioradialis. Normal at triceps Vertebral body tenderness to deep palpation over Cervical facet loading test: positive bilaterally Spurling test: positive bilaterally Neck distraction test: positive bila terally Bailey sign: positive bilaterally Lumbar spine Motor strength lower extremities ,thigh and legs 5/5 Right side , 5/5 Left side Deep tendon reflexes : Normal Knee Jerk. Normal Ankle Jerk Vertebral body tenderness over Foley Test positive Lumbar facet Loading Test: positive BL L4-L5, L5-S1 Range of motion of the lumbar spine Flexion 30 degrees, extension 10 degrees Straight Leg Raise test: Left/ Right positive at degree Padmini test: positive right / positive left. Severe tenderness over the Sacroiliac joint on the Right / Left sides Gaenslen test: positive bilaterally Seated flexion test: positive bilat erally. Sacral spine : Severe tenderness over the Sacroiliac joint: right side / left side Range of motion: Flexion of the lumbar spine <60 degrees Range of motion: Extension of the lumbar spine <20 degrees Gaenslen's Test positive Jose Alejandro's Test positive Padmini test: positive right side / left side Thigh Thrust Test Sacral Thrust Test Imaging: MRI without contrast of the lumbar spine from 09/22/22 reviewed Assessment/ Plan : Lumbar DDD Recommendation of BL RFA L4-L5, L5-S1 and medication management. Will need a series of injections, up until RFA, for optimal pain relief. Risks, benefits of procedure discussed and pt verbalized understanding. Tramadol 50mg #90 w 1 RF. Use, side effects, adverse reactions and safe storage discussed. Opiate/ narcotic agreement signed 10/29/22. All questions answered. I have spent greater than 30 minutes on patient care today. Dr Hernández was available by phone for the evaluation of this patient. The time was used to review the medical records including relevant urine studies and Prescription history (MAPs), review of the available imaging, evaluation and examination of the patient, coordination of care with the medical staff and if applicable referring physicians, as well as creation of the medical record PQRS Narrative: Smoking Status Never smoker Narcotic Agreement Date Signed 10/29/22 Hx Alcohol Use (MH) No Home Medications: Ambulatory Orders ALPRAZolam [Xanax] 1 mg PO HS 03/05/20 Acetaminophen [Tylenol Arthritis] 650 mg PO DIRECTED PRN 05/11/23 Aspirin 81 mg PO DAILY 05/11/23 Losartan/Hydrochlorothiazide [Losartan-Hctz 100-12.5 mg Tab] 1 tab PO DAILY 05/11/23 Magnesium 250 mg PO DAILY 05/11/23 Vit C/E/Zn/Coppr/Lutein/Zeaxan [Preservision Areds 2 Softgel] 1 each PO DAILY 05/11/23 Rosuvastatin [Crestor] 10 mg PO HS 06/24/23 traMADol HCL 50 mg PO TID PRN 30 Days #90 tab 06/30/23 Controlled Substance Measures - Controlled Substance Measures Is patient prescribed a controlled substance at discharge?: Yes When asked, does pt state using other controlled substances?: Yes If prescribed controlled substance>3 days was MAPS reviewed?: Yes
== END ==
LOC: PNWHC3 08:52
PROVIDERS: ATTEND Specialist
DX: M51.37 Other intervertebral disc degeneration, lumbosacral region (principal); M47.817 Spondylosis without myelopathy or radiculopathy, lumbosacral region; G89.29 Other chronic pain; Z88.2 Allergy status to sulfonamides; Z88.1 Allergy status to other antibiotic agents
CPT/HCPCS: 99211

== ENCOUNTER → 2023-07-02 | Outpatient (CLI) | payer MEDICARE, BC | END | disposition home or self-care (01) | LOC: LABWHC1 07:12 | PROVIDERS: ATTEND Orthopaedic Surgery | DX: Z01.812 Encounter for preprocedural laboratory examination (principal); M19.012 Primary osteoarthritis, left shoulder; Z22.322 Carrier or suspected carrier of Methicillin resistant Staphylococcus aureus | CPT/HCPCS: 87070 ==

== ENCOUNTER 2023-07-13 05:38 | Day surgery (SDC) | payer MEDICARE, BC ==
[2023-07-07 13:41] VITALS: BMI 31.6
--- NOTE | 2023-07-12 09:01 | P.HPOR ---
History of Present Illness H&P Date: 07/12/23 Chief Complaint: Left shoulder pain The patient is an 87-year-old retired female who presents with progressive left shoulder pain for the past several years worsening over the past year. She is having pain with any attempted overhead use and at night. She notes significant night symptoms. She's tried medications in addition to injections without any relief. She notes daily pain that limits her significantly. Review of Systems As per HPI Past Medical History Past Medical History: Eye Disorder, Fibromyalgia, Hyperlipidemia, Hypertension, Osteoarthritis (OA) Additional Past Medical History / Comment(s): hx. UTI's-not currently, glaucoma, beginning of macular degeneration History of Any Multi-Drug Resistant Organisms: None Reported Past Surgical History: Appendectomy, Cholecystectomy, Hernia Repair, Hysterectomy, Joint Replacement, Tonsillectomy Additional Past Surgical History / Comment(s): LEFT KNEE REPLACED x2, right knee partial replacement, Holter monitor 24 hours Past Anesthesia/Blood Transfusion Reactions: No Reported Reaction Smoking Status: Never smoker - Past Family History Mother Family Medical History: No Reported History Medications and Allergies Home Medications Medication Instructions Recorded Confirmed Type ALPRAZolam [Xanax] 1 mg PO HS 03/05/20 07/07/23 History Acetaminophen [Tylenol Arthritis] 650 mg PO DIRECTED PRN 05/11/23 07/07/23 History Aspirin 81 mg PO DAILY 05/11/23 07/07/23 History Losartan/Hydrochlorothiazide 1 tab PO DAILY 05/11/23 07/07/23 History [Losartan-Hctz 100-12.5 mg Tab] Magnesium 250 mg PO DAILY 05/11/23 07/07/23 History Vit C/E/Zn/Coppr/Lutein/Zeaxan 1 each PO DAILY 05/11/23 07/07/23 History [Preservision Areds 2 Softgel] Rosuvastatin [Crestor] 10 mg PO HS 06/24/23 07/07/23 History traMADol HCL 100 mg PO TID PRN 07/07/23 07/07/23 History Allergies Allergy/AdvReac Type Severity Reaction Status Date / Time sulfamethoxazole Allergy Rash/Hives Verified 07/07/23 12:53 [From Bactrim] trimethoprim [From Bactrim] Allergy Rash/Hives Verified 07/07/23 12:53 Physical Examination - Shoulder left Appearance: effusion Tenderness with palpation: anterior, bicipital groove Pain: with abduction, with forward flexion ROM: forward flexion: 100 degrees ROM: internal rotation: lower lumbar ROM: external rotation: 40 degrees Crepitus with motion: Yes Strength: abduction: 5/5 Strength: external rotation: 5/5 Tests: internal impingement tests: positive, external impingment tests: positive Results The patient is a well-developed well-nourished female approximately 5 foot 7, 219 pounds of endomorphic. HEENT exam is nonfocal, neck is supple. She's tender about the left anterior glenohumeral joint. She has moderate crepitus. Impingement test, Neer test, and speed tests are positive. Her distal neurovascular appears intact in the left upper extremity. - Diagnostic results Shoulder x-ray: image reviewed (2 views of left shoulder show severe glenohumeral joint osteoarthrosis with [id number] changes and subchondral sclerosis.) Assessment and Plan Assessment: Severe left glenohumeral joint osteoarthrosis Plan: I talked to the patient at length regarding her condition along with treatment options. At this point she is quite limited because of pain related to her left shoulder osteoarthrosis despite conservative measures. After a thorough discussion she opted to proceed with surgery. We'll proceed with left total shoulder arthroplasty. Risks and benefits were discussed at length in layman's terms.
[~2023-07-13 05:38] MED LIST: TRANEXAMIC 1,000 MG/100ML-NACL 1,000 MG in SALINE 1 100ML.BAG IVPB PRN
[2023-07-13] MEDS ORDERED: LIDOCAINE 1% (10MG/ML) FOR IV START INTRADERMA PRN (06:11)
[2023-07-13] MEDS: ACETAMINOPHEN TAB 500 MG TAB PO PRN (06:39)
[2023-07-13] MEDS: MELOXICAM 7.5 MG TAB PO PRN (06:39)
[2023-07-13] MEDS: LACTATED RINGERS 1,000 ML IV SCH (06:40)
[2023-07-13] MEDS: ONDANSETRON 4 MG/2 ML VIAL IVP ONE (06:50)
[2023-07-13] MEDS: DEXAMETHASONE SOD PHOSPHATE 4 MG/ML 1 ML VIAL IV ONE (06:50)
[2023-07-13] MEDS: MIDAZOLAM 2 MG/2 ML VIAL IVP ONE ×2 (06:56)
[2023-07-13] MEDS ORDERED: MIDAZOLAM 2 MG/2 ML VIAL IV PRN (07:00)
[2023-07-13] MEDS ORDERED: HYDROmorphone 0.5 MG/0.5 ML SYRINGE IVP PRN ×2 (07:00→09:16)
--- NOTE | 2023-07-13 07:15 | P.ANPRN ---
Procedure Note - Anesthesia - Nerve Block Performed Left Interscalene Single Date of Procedure: 07/13/23 Procedure Start Time: 06:56 Procedure Stop Time: 07:02 Indication: Acute Post-Operative Pain, Requested by Surgeon Sedation Type: Sedate with meaningful contact maintained Preparation: Sterile Prep Position: Sitting Catheter: None Needle Gauge: 21 Ultrasound used to visualize needle placement: Yes Ultrasound used to observe medication spread: Yes Injectate: 0.5% Ropivacaine (see comment for volume) Blood Aspirated: No Pain Paresthesia on Injection Noted: No Resistance on Injection: Normal Image Stored and Saved: Yes Events: Uneventful and Well Tolerated (20 mls)
[2023-07-13] MEDS ORDERED: GLYCOPYRROLATE 0.2 MG/ML 2 ML VIAL ONE (07:26)
[2023-07-13] MEDS ORDERED: PHENYLEPHRINE 10 MG/ML VIAL ONE (07:26)
[2023-07-13] MEDS ORDERED: PROPOFOL 10 MG/ML 20 ML VIAL IV ONE (07:26)
[2023-07-13] MEDS ORDERED: SUCCINYLCHOLINE CHLORIDE 200 MG/10 ML VIAL IV ONE (07:26)
[2023-07-13] MEDS ORDERED: TRANEXAMIC 1,000 MG/100ML-NACL PREMIX BAG ONE (07:26)
[2023-07-13] MEDS ORDERED: ROPIVACAINE 5 MG/ML 30 ML VIAL ONE (07:26)
[2023-07-13] MEDS ORDERED: ePHEDrine 50 MG/ML 1 ML VIAL ONE (07:26)
[2023-07-13] MEDS ORDERED: ROCURONIUM 10 MG/ML (5 ML VIAL) IV ONE (07:26)
[2023-07-13] MEDS ORDERED: LIDOCAINE 1% INJ 10MG/ML (20 ML MDV) ONE (07:26)
[2023-07-13] MEDS ORDERED: NEOSTIGMINE 1 MG/ML 10 ML VIAL ONE (07:26)
[2023-07-13] MEDS: ceFAZolin 1,000 MG in SODIUM CHLORIDE 0.9% 1,000 ML IRRIGATION ONE (08:04)
[2023-07-13] MEDS ORDERED: Acetaminophen-Codeine 300-30mg TAB PO PRN (09:16)
[2023-07-13] MEDS ORDERED: SENNOSIDES-DOCUSATE SODIUM 1 EACH TAB PO PRN (09:16)
[2023-07-13] MEDS: LACTATED RINGERS 1,000 ML IV ONE (09:19)
--- NOTE | 2023-07-13 09:34 | P.OP ---
Date of Procedure: 07/13/23 Preoperative Diagnosis: Severe left glenohumeral joint osteoarthrosis Postoperative Diagnosis: Same Procedure(s) Performed: Left total shoulder arthroplasty Implants: [employer] size 12 press-fit humeral stem, size 12 body, 44 x 21 mm eccentric humeral head, 44 mm cemented central pegged glenoid component. Anesthesia: rene LANZA Surgeon: Lamin Allen Estimated Blood Loss (ml): 100 Pathology: none sent Condition: stable Disposition: PACU Indications for Procedure: The patient is an 87-year-old female who presents with progressive left shoulder pain secondary to osteoarthrosis despite extensive conservative measures. A discussion of the risks and benefits of operative intervention versus continued conservative measures was made with the patient. She opted to proceed with surgery. Operative risks include infection, neurovascular injury, development of blood clots, fracture, possible component loosening/failure and need for subsequent procedures was discussed. Informed consent was obtained. Operative Findings: As below Description of Procedure: The patient was brought to the operating room, and after induction of general anesthesia was placed in the beachchair position. The bony prominences were appropriately padded. The left upper extremity was prepped and draped in normal fashion. A deltopectoral incision was then made lateral to the coracoid process extending approximately 12 cm. The skin was incised sharply. Subcutaneous tissues were divided bluntly. Electrocautery was used for hemostasis. The deltopectoral interval was identified and the cephalic vein gently retracted laterally with the deltoid. Subdeltoid adhesions were bluntly dissected. A self-retaining retractor was placed. The clavipectoral fascia was opened and the conjoined tendon gently retracted medially. The upper one third of the pectoralis major was released to help facilitate exposure. The biceps was identified and the sheath was opened. The rotator interval was opened. The biceps was tenotomized and allowed to retract distally. Subscapularis peel was then performed and this was tagged with #2 Ethibond.. The humeral head was then exposed releasing the capsule off the humeral neck. The shoulder was gently dislocated. A starting hole was made in the head in line with the humeral shaft. The shaft was reamed by hand up to 12 mm. There is good distal chatter. The cutting guide was placed planning on 8 cut flush with the rotator cuff insertion and 30 of retroversion. The cutting block was pinned in place. The humeral head cut was then made. This measured most appropriately at 44 x 21 mm. Residual inferior osteophytes were carefully removed flush with the [place] cortical bone. A posterior glenoid retractor was placed. The glenoid was then exposed releasing the labrum from the 6-12 o'clock position. Residual labral tissue was removed. The glenoid sized most appropriate 44 mm. A guidewire was then inserted planning on the appropriate version. The glenoid was reamed down to a bleeding bony surface. The central pedicle was drilled. The alignment guide was placed in the peripheral peg holes drilled. The trial size 44 mm glenoid was placed and was fully seated. There was good anterior to posterior and inferior to superior fit. The trial component was removed. Pulsatile lavage was utilized. The bony surface was dried. The peripheral peg holes were then pressurized with cement utilizing a syringe. Excess cement was removed. A central peg glenoid was then placed and was fully seated. This was gently impacted. This was held in place until the cement had sufficiently hardened. Attention was then paid again towards preparing the proximal humerus. The appropriate broach was placed in 30 of retroversion and was fully seated. An eccentric 44 x 21 mm humeral head was placed. The shoulder was gently reduced. It was taken through a range of motion. It was felt to be stable in flexion and extension with internal and external rotation. I felt there was adequate sabianist of soft tissue tension. The shoulder was gently dislocated. The trial components were then removed. A #2 Ethibond was placed laterally for reattachment of the lesser tuberosity. The humeral stem was inserted in 30 of retroversion and was fully seated. There was good rotational stability. The eccentric 44 x 21 mm humeral head was gently impacted. The shoulder was then gently reduced and taken through range of motion and was felt to be stable. Pulsatile lavage was utilized. Lesser tuberosity was reattached utilizing #2 Ethibond suture. The rotator interval was closed with #2 Ethibond suture. There was minimal drainage at this point therefore a deep drain was not placed. The deltopectoral interval was closed with interrupted 2-0 Vicryl sutures. The subcu tissues were reapproximated with interrupted 2-0 Vicryl sutures. The skin was reprepped with 3-0 subcuticular Prolene suture. Steri-Strips were applied. A sterile dressing was applied in addition to a sling. The patient was then awoken from general anesthesia and transferred to recovery room in good condition. Blood loss was estimated at 100 mL. No complications were incurred. Sponge and needle counts were correct at the end the case. Syd RUSH assisted during the major components of the case to include positioning, exposure, resection, implantation, and closure.
--- NOTE | 2023-07-13 10:55 | XR ---
EXAMINATION TYPE: XR shoulder limited LT DATE OF EXAM: 07/13/2023 9:54 AM CLINICAL INDICATION:Female, 87 years old with history of s/p left total shoulder arthroplasty; [facility] COMPARISON: 05/17/2023. TECHNIQUE: XR shoulder limited LT; examined in AP, internally rotated and scapular Y projections. FINDINGS: Shoulder arthroplasty with hardware intact. Subcutaneous lucencies compatible with gas from recent coto rgery. No evidence for fracture. Hardware appears in tact The remaining portions of the visualized c hest are unremarkable. IMPRESSION: 1. Post arthroplasty changes hardware is intact. 2. No acute osseous pathology.
[2023-07-13] MEDS ORDERED: ACETAMINOPHEN TAB 325 MG TAB PO PRN (15:23)
[2023-07-13] MEDS: hydroCHLOROthiazide 12.5 MG CAP PO SCH (17:36)
[2023-07-13] MEDS: LOSARTAN 50 MG TAB PO SCH (17:36)
[2023-07-13 20:24] LABS: Basophils % (A) 0 %; Eosinophils # (A) 0.1 k/uL (0-0.7); Eosinophils % (A) 1 %; HCT 33.9 % (34.0-46.0); HGB 11.1 gm/dL (11.4-16.0); Lymphocytes # (A) 1.4 k/uL (1.0-4.8); Lymphocytes % (A) 13 %; MCH 35.7 pg (25.0-35.0); MCHC 32.8 g/dL (31.0-37.0); MCV 108.9 fL (80.0-100.0); Macrocytosis Moderate; Mean Platelet Volume 9.5; Monocytes # (A) 0.7 k/uL (0-1.0); Monocytes % (A) 6 %; Neutrophils # (A) 8.6 k/uL (1.3-7.7); Neutrophils % (A) 79 %; Platelet Count 183 k/uL (150-450); RBC 3.12 m/uL (3.80-5.40); RDW 11.7 % (11.5-15.5); WBC 10.9 k/uL (3.8-10.6)
[2023-07-13] MEDS: Acetaminophen-Codeine 300-30mg TAB PO PRN (20:31)
[2023-07-13] MEDS: ALPRAZolam 1 MG TAB PO SCH (20:31)
[2023-07-13] MEDS: ATORVASTATIN 20 MG TAB PO SCH (20:31)
[2023-07-13] MEDS: hydrOXYzine pamoate 25 MG CAP PO PRN (23:58)
--- NOTE | 2023-07-14 01:21 | CONS ---
CONSULTATION REASON FOR CONSULTATION: Advice regarding hypertension and other medical issues, requested by Surgery. HISTORY OF PRESENT ILLNESS: This is an 87-year-old woman with a past medical history of multiple medical problems including hypertension, hyperlipidemia, being followed by Dr. Velazquez in the outpatient setting, underwent left shoulder arthroplasty. The patient is being closely monitored. There is no history of any fever, or rigors. No history of headache, or loss or seizures. PAST MEDICAL HISTORY: Reviewed include hypertension, hyperlipidemia. The rest of the history and chart is also reviewed. HOME MEDICATIONS: Aspirin, rest of the medications reviewed. ALLERGIES: Reviewed include Bactrim. FAMILY HISTORY: No history of heart disease or strokes in the family. SOCIAL HISTORY: No history of smoking or alcohol. REVIEW OF SYSTEMS: Fourteen-point review is negative except as mentioned earlier. PHYSICAL EXAMINATION: VITAL SIGNS: Pulse is 57, blood pressure 143/70, respirations 16. HEENT: Conjunctivae normal. NECK: No JVD. CARDIOVASCULAR: S1, S2. RESPIRATIONS: Breath sounds diminished at the bases. ABDOMEN: Soft, nontender. LEGS: No edema. NERVOUS SYSTEM: Nonfocal. EXTREMITIES: Left shoulder status post arthroplasty. LABORATORY DATA: Not available. ASSESSMENT: 1. Status post left shoulder arthroplasty. 2. Bradycardia, mild. 3. Hypertension. 4. Hyperlipidemia. 5. History of fibromyalgia. 6. History of DJD. RECOMMENDATIONS AND DISCUSSION: This 87-year-old woman presented with multiple medical issues. I recommend to continue current management and continue symptomatic treatment. Otherwise, resume home medications. DVT prophylaxis. Incentive spirometry. We will follow the patient closely. The patient may be asked to follow up with Dr. Velazquez closely after discharge. MMODL / IJN: [id number] /
[2023-07-14] MEDS: ASPIRIN 325 MG TAB PO SCH (08:47)
[2023-07-14] MEDS: VIT A,C & E-LUTEIN-MINERALS 1 EACH TAB PO SCH (08:48)
[2023-07-14] MEDS: MAGNESIUM OXIDE 400 MG TAB PO SCH (08:48)
[2023-07-14 08:57] VITALS: RESP 17; TEMP 98.2
--- NOTE | 2023-07-14 11:01 | P.DS ---
Providers Date of admission: 07/13/2023 Expected date of discharge: 07/14/23 Attending physician: Lamin Allen Consults: 07/13/23 09:16 Consult Physician Routine Consulting Provider: Anthony Barcenas Consult Reason/Comments: medical management s/p left total shoulder arthroplasty Do you want consulting provider notified?: Yes Primary care physician: [facility] Course: Date of admission: 07/13/2023 Date of discharge: 07/14/2023 Admission diagnosis: Severe left glenohumeral joint osteoarthrosis Discharge diagnosis: Same Attending physician: Dr. Allen Surgical procedures: Left total shoulder arthroplasty Brief history: Patient is a 87-year-old female with a history of Severe left glenohumeral joint osteoarthrosis. At this point patient has failed conservative treatment measures and has opted to proceed with a elective left total shoulder arthroplasty. Hospital course: Details of patient's surgery can be found in operative report. Patient tolerated the procedure well and was subsequently transported to orthopedic floor. Patient's orthopeidc and medical care was provided daily. Patient had daily laboratory tests performed for evaluation of overall blood counts. Patient had daily physical therapy to include strengthening range of motion as well as education with walker ambulation. Patient was treated with aspirin for their postoperative DVT prophylaxis during their inpatient stay. Patient was noted to have a relatively uneventful postoperative course. Patient reported satisfactory pain control with oral pain medications by postoperative day 1. Patient showed satisfactory progress with physical therapy. Patient moved steadily through the program and had no difficulty meeting the goals by postoperative day 1. Given patient's otherwise satisfactory course and having met physical therapy goals, plan is to discharge patient home on postoperative day 1. Discharge condition/disposition: Patient will be discharged home in stable condition. Discharge medications: Instructions are given on resumption of patient's normal daily medications per primary care recommendation, in addition patient will be prescribed Tylenol 3 w/codeine; aspirin 81 mg twice daily x 30 days; senna. Orthopedic Discharge Instructions: 1. Wound care and infection precautions, keep incision dry and covered while showering, no lotions, creams, moisturizers. No soaking, pools, hot tubs. Do not scrub over incision. 2. Non-weight bearing left upper extremity. 3. Ice when necessary. Do not exceed 20 minutes per hour with ice pack. 4. Utilize sling to left upper extremity until seen at first follow up appointment. 5. Pain meds and anticoagulants per prescription. 6. Pain medication has potential to cause constipation. Increase oral fluid and fiber intake. Contact primary care provider if you have not had a bowel movement within 48 hours after discharge. 7. No anti-inflammatory medication until discussed at first post operative visit, this including Motrin, Aleve, Mobic, Diclofenac. 8. Follow up in office at 2 weeks postop with Elbert Teixeira PA-C / Syd Christopher PA-C 9. Follow up with your primary care doctor 7-10 days after discharge. 10. Contact [facility] with any questions, . Keep incision clean, dry, intact. While showering, cover incision with Saran wrap. Keep steri-strips on until follow-up appointment in office in 2 weeks. Assessment: Severe left glenohumeral joint osteoarthrosis Procedures: Left total shoulder arthroplasty Patient Condition at Discharge: Good Plan - Discharge Summary Discharge Rx Participant: Yes New Discharge Prescriptions: New Sennosides/Docusate Sodium [Senna Plus 8.6-50 mg Softgel] 1 each PO DAILY #20 capsule Acetaminophen-Codeine 300-30mg [Tylenol w/codeine #3] 1 tab PO Q6H PRN #28 tablet PRN Reason: Pain Continue Aspirin 81 mg PO BID No Action ALPRAZolam [Xanax] 1 mg PO HS Magnesium 250 mg PO DAILY Rosuvastatin [Crestor] 10 mg PO HS traMADol HCL 100 mg PO TID PRN PRN Reason: Pain Losartan/Hydrochlorothiazide [Losartan-Hctz 100-12.5 mg Tab] 1 tab PO DAILY Vit C/E/Zn/Coppr/Lutein/Zeaxan [Preservision Areds 2 Softgel] 1 each PO DAILY Acetaminophen [Tylenol Arthritis] 650 mg PO DIRECTED PRN PRN Reason: Pain Discharge Medication List ALPRAZolam [Xanax] 1 mg PO HS 03/05/20 [History] Acetaminophen [Tylenol Arthritis] 650 mg PO DIRECTED PRN 05/11/23 [History] Aspirin 81 mg PO BID 05/11/23 [History] Losartan/Hydrochlorothiazide [Losartan-Hctz 100-12.5 mg Tab] 1 tab PO DAILY 05/11/23 [History] Magnesium 250 mg PO DAILY 05/11/23 [History] Vit C/E/Zn/Coppr/Lutein/Zeaxan [Preservision Areds 2 Softgel] 1 each PO DAILY 05/11/23 [History] Rosuvastatin [Crestor] 10 mg PO HS 06/24/23 [History] traMADol HCL 100 mg PO TID PRN 07/07/23 [History] Acetaminophen-Codeine 300-30mg [Tylenol w/codeine #3] 1 tab PO Q6H PRN #28 tablet 07/14/23 [Rx] Sennosides/Docusate Sodium [Senna Plus 8.6-50 mg Softgel] 1 each PO DAILY #20 capsule 07/14/23 [Rx] Follow up Appointment(s)/Referral(s): Syd Christopher, FRED [PHYSICIAN [employer]] - 07/28/23 10:30 am (With Alejandro) Patient Instructions/Handouts: Shoulder Arthroplasty (DC), Shoulder Arthroplasty (GEN) Activity/Diet/Wound Care/Special Instructions: Orthopedic Discharge Instructions: 1. Wound care and infection precautions, keep incision dry and covered while showering, no lotions, creams, moisturizers. No soaking, pools, hot tubs. Do not scrub over incision. 2. Non-weight bearing left upper extremity. 3. Ice when necessary. Do not exceed 20 minutes per hour with ice pack. 4. Utilize sling to left upper extremity until seen at first follow up appointment. 5. Pain meds and anticoagulants per prescription. 6. Pain medication has potential to cause constipation. Increase oral fluid and fiber intake. Contact primary care provider if you have not had a bowel movement within 48 hours after discharge. 7. No anti-inflammatory medication until discussed at first post operative visit, this including Motrin, Aleve, Mobic, Diclofenac. 8. Follow up in office at 2 weeks postop with Elbert Teixeira PA-C / Syd Christopher PA-C 9. Follow up with your primary care doctor 7-10 days after discharge. 10. Contact [facility] with any questions, . Keep incision clean, dry, intact. While showering, cover incision with Saran wrap. Keep steri-strips on until follow-up appointment in office in 2 weeks. Discharge Disposition: HOME SELF-CARE
--- NOTE | 2023-07-14 11:30 | P.PN ---
Subjective Progress Note Date: 07/14/23 Principal diagnosis: Severe left glenohumeral joint osteoarthrosis Patient was seen at bedside this morning lying in semirecumbent position with dressing present to left upper extremity in sling present. Patient says she has been up walking little bit since surgery yesterday. Patient says she does have a little bit of numbness and tingling down the left upper extremity and she feels that the block is wearing off a little bit. Patient says her daughter will be able to stay with her for a couple days when she does go home. Patient says she has urinated since or yesterday without issue. Patient denies any other complaints at this time. Patient denies chest pain, fever, shortness of breath, nausea, vomiting, change in vision, loss of bowel/bladder control. Objective - Vital Signs Vital signs: Vital Signs Temp 98.2 F 07/14/23 07:21 Pulse 61 07/14/23 07:21 Resp 17 07/14/23 07:21 BP 109/61 07/14/23 07:21 Pulse Ox 96 07/14/23 07:21 FiO2 Intake & Output 07/13/23 07/14/23 07/14/23 18:59 06:59 18:59 Intake Total 751 Output Total 100 Balance 651 Weight 87.5 kg Intake: IV 751 Output: Estimated Blood Loss 100 Other: Voiding Method Toilet # Voids 2 1 - Exam Left shoulder: Incision is clean, dry, and intact. The bulky dressing is in good condition. Sling present to the left upper extremity there is minimal soft tissue swelling and ecchymosis surrounding the medial and lateral aspects of the incision. Calf is soft, no tenderness with palpation. Plantar flexion, dorsiflexion, EHL, FHL are intact. Sensory exam to light touch throughout the extremity is intact, dorsal pedis pulses 2+. - Labs CBC & Chem 7: 07/13/23 20:12 Labs: Abnormal Lab Results - Last 24 Hours (Table) 07/13/23 Range/Units 20:12 WBC 10.9 H (3.8-10.6) k/uL RBC 3.12 L (3.80-5.40) m/uL Hgb 11.1 L (11.4-16.0) gm/dL Hct 33.9 L (34.0-46.0) % MCV 108.9 H (80.0-100.0) fL MCH 35.7 H (25.0-35.0) pg Neutrophils # 8.6 H (1.3-7.7) k/uL Assessment and Plan Assessment: 1. Severe left glenohumeral joint osteoarthrosis -Postop day 1 status post left total shoulder arthroplasty Plan: 1. Severe left glenohumeral joint osteoarthrosis - left total shoulder arthroplasty performed yesterday, 07/13/2023. Patient stable at bedside this morning with sling present to left upper extremity in bulky dressing present. Pain is under control. Discharge home today 2. Appreciate medical management 3. Pain management -Tylenol with codeine 4. GI prophylaxis -senna 5. DVT prophylaxis -aspirin 6. PT/OT -nonweightbearing left upper extremity. Maintain in sling 7. Encourage incentive spirometer use 8. Discharge planning -plan for home today Time with Patient: Less than 30
[2023-07-14 11:52] VITALS: BP 112/58; PULSE 60
--- NOTE | 2023-07-15 01:07 | PN ---
PROGRESS NOTE DATE OF SERVICE: 07/14/2023 SUBJECTIVE: This is an 87-year-old woman who was admitted with left shoulder arthroplasty improving significantly. No chest pain, no palpitations, no fever. OBJECTIVE: VITAL SIGNS: Pulse is 61, blood pressure 109/60, respirations 17. CHEST: Clear to auscultation. CARDIOVASCULAR: S1, S2. ABDOMEN: Soft. EXTREMITIES: Left shoulder status post arthroplasty. LABORATORY DATA: Reviewed, hemoglobin 11.1. ASSESSMENT: 1. Status post left shoulder arthroplasty. 2. Elevated WBC, possibly reactive. 3. Bradycardia, mildly improved. 4. Hypertension. 5. Hyperlipidemia. 6. History of asthma. 7. History of DJD. RECOMMENDATIONS: Recommended to continue current management, continue symptomatic treatment. Otherwise resume the home medications. Follow up with primary physician, rest of the recommendations per Orthopedic surgery. Incentive spirometry. MMFLORINAL / HARJITN: [id number] /
== END 2023-07-14 13:17 | disposition home or self-care (01) ==
LOC: OR 05:38 → 4SSUR 09:33 → OR 07-14 13:17
PROVIDERS: ATTEND Orthopaedic Surgery
DX: M19.012 Primary osteoarthritis, left shoulder (principal); M79.7 Fibromyalgia; I10 Essential (primary) hypertension; G89.18 Other acute postprocedural pain; E78.5 Hyperlipidemia, unspecified; Z88.1 Allergy status to other antibiotic agents; Z88.2 Allergy status to sulfonamides; Z96.653 Presence of artificial knee joint, bilateral; Z98.890 Other specified postprocedural states
CPT/HCPCS: 64415; 85025; 73020; 23472; C1713; C1776; J2250; J1100; J0690 ×2; J2405

== ENCOUNTER 2023-09-10 05:58 | Day surgery (SDC) | payer MEDICARE, BC ==
[2023-09-09 08:42] VITALS: BMI 31.1
[2023-09-10] MEDS: IV FLUID CONTINUATION 1,000 ML IV ONE ×2 (06:42→07:49)
[2023-09-10] MEDS: LACTATED RINGERS 1,000 ML IV SCH (06:42)
[2023-09-10] MEDS ORDERED: LIDOCAINE 1% (10MG/ML) FOR IV START INTRADERMA ONE (06:43)
[2023-09-10 06:59] VITALS: TEMP 97.4
[2023-09-10] MEDS ORDERED: MIDAZOLAM 2 MG/2 ML VIAL ONE (07:02)
[2023-09-10] MEDS ORDERED: ROPIVACAINE 5MG/ML 20ML VIAL ONE (07:02)
--- NOTE | 2023-09-10 07:58 | P.PCN ---
Description of Procedure: Preprocedure diagnosis. 1. 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 2. Lumbar degenerative disc disease. Procedure diagnosis. 1. 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 Space 2. Lumbar degenerative disc disease. Procedure.Bilateral radiofrequency thermocoagulation L3, L4 and L5 medial branch, with fluoroscopic guidance (fluoroscopy images are available in the radiology department) (to Denervate the facet joint at bilateral L4- 5 and L5-S1 levels) Anesthesia. moderate sedation with intravenous Versed 2 mg and local infiltration with ropivacaine 0.5%. Continuous verbal communication was maintained with patient. EBL minimal. Procedure indication. The patient with low back pain secondary to lumbar facet arthropathy who he had more than 50% relief of her pain with previous diagnostic lumbar medial branch block with local anesthetics.The patient was seen and identified in the preoperative area. Risks: Benefits, complications, including but not limited to risk of infection, bleeding, ALLERGIC reaction to the medications and no complete pain relief and alternatives were discussed with the patient, the patient admitted to proceed with the procedure and signed the consent. Procedure description/technique. Patient was taken to the OR and timeout was completed. The patient was placed in prone position on the procedure table. The lumbar area was prepped and draped in the usual sterile fashion. After injecting 5 ml of 1% Lidocaine subcutaneously,using AP and then oblique, lateral view of fluoroscopy, 18-gauge 100 mm radiofrequency cannula with a 10 mm active tip was advanced and guided by fluoroscopy at the junction of supirior articular process with RIGHT ala of the sacrum, transverse process of L4&L5. Each site then underwent positive sensory testing with 50 Hz and 0-1 V and negative motor testing at 2.5 Hz and 0-3 V with local stimulation but no radicular symptoms down the leg. Thereafter each sites underwent radiofrequency thermocoagulation at 80C for 90 seconds after injecting 1 mL of preservative- free 0.5% ropivacaine. Repeat radiofrequency ablation was done at each points after rotating the needle 180 with same setting. This same procedure was repeated twice on the LEFT side at the junction of superior articular process with ala of sacrum,transverse process of L4, L5 with the same settings after positive sensory,negative motor stimulation and infiltration of 1.0 ml 5% Ropivacaine at each site . RF needles were taken out. At the end of the procedure the skin was cleansed and Band-Aids were applied. Disposition patient tolerated the procedure well. No complication. She was placed in supine position and transferred to the recovery area in stable condition for observation and was discharged home from recovery room after meeting discharge criteria. Discharge instructions given to the patient by the staff. The patient were examined prior to discharge the patient will schedule a follow-up in the clinic in 2-4 weeks.
[2023-09-10 08:20] VITALS: BP 124/85; PULSE 65; RESP 16
--- NOTE | 2023-09-10 08:33 | FL ---
EXAMINATION TYPE: FL guided pain mgmt statistic Intraoperative/procedural fluoroscopic services were provided. Total fluoroscopy time is 70.7 seconds with a total of 5 submitted images to PACS. Please s ee the operative/procedural note for further details. DAP: [id number] mGym2
== END 2023-09-10 08:29 | disposition home or self-care (01) ==
LOC: ORPAIN 05:58
PROVIDERS: ATTEND Pain Medicine Interventional Pain Medicine
DX: M47.816 Spondylosis without myelopathy or radiculopathy, lumbar region (principal); M51.36 Other intervertebral disc degeneration, lumbar region
CPT/HCPCS: 64635; 64636 ×2; J2250; J2795; 99152; 99153

== ENCOUNTER → 2023-09-27 | Outpatient (CLI) | payer MEDICARE, BC ==
[2023-09-27 11:10] VITALS: BP 131/85; PULSE 71; RESP 16; TEMP 97.3
--- NOTE | 2023-09-27 14:28 | P.PAINPG ---
PQRS Measure Charge Sheet Comment: HISTORY OF PRESENT ILLNESS: An 87 yr old female presents today w severe and chronic LBP secondary to DDD, spondylosis and facet arthropathy without myelopathy for medication refills and follow up for BL RFA L3-L5 and medication refills. Pt states she experienced 95 % pain relief s/p procedure. Pt states pain level is provoked at 1 /10 in intensity, constant, localized in the lower lumbar spine, predominantly axial, sharp in character without shooting pain. Pain is provoked by walking for periods of 5 min or more. Pain is alleviated by medications, topical, PT in 2018, chiropractic treatments semi weekly x 1 yr w last visit in Aug 2022, ice, repositioning and rest. Pt was discharged from chiropractic treatments w a physician guided home stretching program she does 5 times a week since Aug 2022. Oswestry axial pain score of 12. Interventional procedures include BL RFA L4-L5/ L5-S1 (Aug 2023) Medications include Tramadol 50mg #90, Tyl Arth, Celebrex, Allen Emu REVIEW OF ORGAN SYSTEMS: CONSTITUTIONAL: No fevers or chills. No recent weight loss. NEUROLOGICAL: + numbness and tingling along the distal extremities. No seizure disorders or headaches. MUSCULOSKELETAL: + pain PSYCHIATRIC: Denies current depression or suicidal thoughts. Physical Examinations : Constitutional : Cooperative , not in acute distress . Neurologic : Cranial nerve II to XII intact. No focal neurological deficits. Psychiatric : alert & oriented x 3. Matching mood & appropriate affect. Judgment & insight intact. Musculoskeletal : Cervical Spine Motor strength in the deltoid and biceps: Normal right side. Normal Left side Motor strength biceps and the wrist extensors: Normal right side . Normal left side Motor strength in the triceps muscle: Normal right side. Normal left side Deep tendon reflexes: Normal at the biceps. Normal at Brachioradialis. Normal at triceps Vertebral body tenderness to deep palpation over Cervical facet loading test: positive bilaterally Spurling test: positive bilaterally Neck distraction test: positive b ilaterally Bailey sign: positive bilaterally Lumbar spine Motor strength lower extremities ,thigh and legs 5/5 Right side , 5/5 Left side Deep tendon reflexes : Normal Knee Jerk. Normal Ankle Jerk Vertebral body tenderness over Foley Test positive Lumbar facet Loading Test: positive BL L4-L5, L5-S1 Range of motion of the lumbar spine Flexion 30 degrees, extension 10 degrees Straight Leg Raise test: Left/ Right positive at degree Padmini test: positive right / positive left. Severe tenderness over the Sacroiliac joint on the Right / Left sides Gaenslen test: positive bilaterally Seated flexion test: positive bi laterally. Sacral spine : Severe tenderness over the Sacroiliac joint: right side / left side Range of motion: Flexion of the lumbar spine <60 degrees Range of motion: Extension of the lumbar spine <20 degrees Gaenslen's Test positive Jose Alejandro's Test positive Padmini test: positive right side / left side Thigh Thrust Test Sacral Thrust Test Imaging: MRI without contrast of the lumbar spine from 09/22/22 reviewed Assessment/ Plan : Lumbar DDD Will manage residual pain and may RTC on an as needed basis. Has ample supply of Tramadol 50mg #90 w 1 RF. Use, side effects, adverse reactions and safe storage discussed. Opiate/ narcotic agreement signed 10/29/22. All questions answered. I have spent greater than 30 minutes on patient care today. Dr Hernández was available by phone for the evaluation of this patient. The time was used to review the medical records including relevant urine studies and Prescription history (MAPs), review of the available imaging, evaluation and examination of the patient, coordination of care with the medical staff and if applicable referring physicians, as well as creation of the medical record PQRS Narrative: Smoking Status Never smoker Narcotic Agreement Date Signed 10/29/22 Hx Alcohol Use (MH) No Home Medications: Ambulatory Orders ALPRAZolam [Xanax] 1 mg PO HS 03/05/20 Acetaminophen [Tylenol Arthritis] 650 mg PO DIRECTED PRN 05/11/23 Aspirin 81 mg PO BID 05/11/23 Losartan/Hydrochlorothiazide [Losartan-Hctz 100-12.5 mg Tab] 1 tab PO DAILY 05/11/23 Magnesium 250 mg PO DAILY 05/11/23 Vit C/E/Zn/Coppr/Lutein/Zeaxan [Preservision Areds 2 Softgel] 1 each PO DAILY 05/11/23 Rosuvastatin [Crestor] 10 mg PO HS 06/24/23 traMADol HCL 100 mg PO TID PRN 07/07/23 Controlled Substance Measures - Controlled Substance Measures Is patient prescribed a controlled substance at discharge?: No When asked, does pt state using other controlled substances?: No
== END ==
LOC: PNWHC3 09:26
PROVIDERS: ATTEND Specialist
DX: M51.37 Other intervertebral disc degeneration, lumbosacral region (principal); Z88.2 Allergy status to sulfonamides; Z88.1 Allergy status to other antibiotic agents
CPT/HCPCS: 99211

== ENCOUNTER → 2023-11-15 | Outpatient (CLI) | payer MEDICARE, BC ==
[2023-11-15 09:01] VITALS: BP 149/103; PULSE 60; RESP 16; TEMP 97.1
--- NOTE | 2023-11-15 15:08 | P.PAINPG ---
PQRS Measure Charge Sheet Comment: HISTORY OF PRESENT ILLNESS: An 88 yr old female presents today w severe and chronic LBP secondary to DDD, spondylosis and facet arthropathy without myelopathy for medication refills. Pt states pain level is provoked at 9 /10 in intensity, constant, localized in the lower lumbar spine, predominantly axial, burning/ achy in character without shooting pain. Pain is provoked by walking for periods of 5 min or more. Pain is alleviated by medications, topical, PT in 2018, chiropractic treatments semi weekly semi monthly since end of Aug 2023, ice, repositioning and rest. Pt was discharged from chiropractic treatments w a physician guided home stretching program she does 5 times a week since Aug 2022. Interventional procedures include BL RFA L4-L5/ L5-S1 (Aug 2023) Medications include Tramadol 50mg #90, Tyl Arth, Celebrex, Allen Emu REVIEW OF ORGAN SYSTEMS: CONSTITUTIONAL: No fevers or chills. No recent weight loss. NEUROLOGICAL: + numbness and tingling along the distal extremities. No seizure disorders or headaches. MUSCULOSKELETAL: + pain PSYCHIATRIC: Denies current depression or suicidal thoughts. Physical Examinations : Constitutional : Cooperative , not in acute distress . Neurologic : Cranial nerve II to XII intact. No focal neurological deficits. Psychiatric : alert & oriented x 3. Matching mood & appropriate affect. Judgment & insight intact. Musculoskeletal : Cervical Spine Motor strength in the deltoid and biceps: Normal right side. Normal Left side Motor strength biceps and the wrist extensors: Normal right side . Normal left side Motor strength in the triceps muscle: Normal right side. Normal left side Deep tendon reflexes: Normal at the biceps. Normal at Brachioradialis. Normal at triceps Vertebral body tenderness to deep palpation over Cervical facet loading test: positive bilaterally Spurling test: positive bilaterally Neck distraction test: positive bilaterally Bailey sign: positive bilaterally Lumbar spine Motor strength lower extremities ,thigh and legs 5/5 Right side , 5/5 Left side Deep tendon reflexes : Normal Knee Jerk. Normal Ankle Jerk Vertebral body tenderness over L5 Foley Test positive BL L5-S1 Lumbar facet Loading Test: positive BL L4-L5, L5-S1 Range of motion of the lumbar spine Flexion 30 degrees, extension 10 degrees Straight Leg Raise test: Left/ Right positive at degree Padmini test: positive right / positive left. Severe tenderness over the Sacroiliac joint on the Right / Left sides Gaenslen test: positive bilaterally Seated flexion test: positive bilaterally. Sacral spine : Severe tenderness over the Sacroiliac joint: right side / left side Range of motion: Flexion of the lumbar spine <60 degrees Range of motion: Extension of the lumbar spine <20 degrees Gaenslen's Test positive Jose Alejandro's Test positive Padmini test: positive right side / left side Thigh Thrust Test Sacral Thrust Test Imaging: MRI without contrast of the lumbar spine from 09/22/22 reviewed Assessment/ Plan : Lumbar DDD Recommendation of MANJINDER L5-S1. Risks, benefits of procedure discussed and pt verbalized understanding. Protocol for discontinuation/ continuation of medications mandy procedure discussed. No 50mg #90 needed at this time. Use, side effects, adverse reactions and safe storage discussed. Opiate/ narcotic agreement signed 10/14/22. All questions answered. I have spent greater than 30 minutes on patient care today. Dr Hernández was available by phone for the evaluation of this patient. The time was used to review the medical records including relevant urine studies and Prescription history (MAPs), review of the available imaging, evaluation and examination of the patient, coordination of care with the medical staff and if applicable referring physicians, as well as creation of the medical record PQRS Narrative: Smoking Status Never smoker Narcotic Agreement Date Signed 10/29/22 Hx Alcohol Use (MH) No Home Medications: Ambulatory Orders ALPRAZolam [Xanax] 1 mg PO HS 03/05/20 Acetaminophen [Tylenol Arthritis] 650 mg PO DIRECTED PRN 05/11/23 Aspirin 81 mg PO BID 05/11/23 Losartan/Hydrochlorothiazide [Losartan-Hctz 100-12.5 mg Tab] 1 tab PO DAILY 05/11/23 Magnesium 250 mg PO DAILY 05/11/23 Vit C/E/Zn/Coppr/Lutein/Zeaxan [Preservision Areds 2 Softgel] 1 each PO DAILY 05/11/23 Rosuvastatin [Crestor] 10 mg PO HS 06/24/23 traMADol HCL 100 mg PO TID PRN 07/07/23 Controlled Substance Measures - Controlled Substance Measures Is patient prescribed a controlled substance at discharge?: No
== END ==
LOC: PNWHC3 08:23
PROVIDERS: ATTEND Specialist
DX: M47.816 Spondylosis without myelopathy or radiculopathy, lumbar region
CPT/HCPCS: 99211

== ENCOUNTER 2023-12-09 08:53 | Day surgery (SDC) | payer MEDICARE, BC ==
[~2023-12-09 08:53] MED LIST changes: +LACTATED RINGERS 1,000 ML IV SCH; -TRANEXAMIC 1,000 MG/100ML-NACL 1,000 MG in SALINE 1 100ML.BAG IVPB PRN
[2023-12-09 09:56] VITALS: RESP 18; TEMP 97.7
[2023-12-09] MEDS ORDERED: IOPAMIDOL M200 10 ML VIAL ONE (10:52)
[2023-12-09] MEDS ORDERED: methylPREDNISolone ACETATE 40 MG/ML 1 ML VIAL ONE (10:52)
--- NOTE | 2023-12-09 11:00 | P.PCN ---
Date of Procedure: 12/09/23 Procedure(s) Performed: PREOPERATIVE DIAGNOSIS: 1- Lumbar Degenerative Disc Diseases 2-Lumbar spondylosis with Facet arthropathy without myelopathy. 3-lumbar radiculopathy POSTOPERATIVE DIAGNOSIS: 1-lumbar degenerative disc disease. 2-lumbar spondylosis with facet arthropathy without myelopathy. 3-lumbar radiculopathy. PROCEDURE 1. Lumbar epidural steroid injection under fluoroscopic guidance at the L5-S1 level. (Fluoroscopy imaging was available in radiology department) 2. Lumbar epidurogram. ANESTHESIA: Lidocaine 1% 3 and then only. EBL: Minimal PROCEDURE INDICATION: The patient with low back pain and radiculitis symptoms unresponsive to conservative treatment. Fluoroscopy was used to optimize visualization of the needle placement and to maximize safety. PROCEDURE DESCRIPTION / TECHNIQUE: The patient was seen and identified in the preoperative area. Risks, benefits, complications including but not limited to infections ,bleeding ,allergic reaction to the medications ,nerve damage and not complete pain releife , and alternatives were discussed with the patient. The patient agreed to proceed with the procedure and signed the consent, and vital signs were stable. Patient was taken to the OR and time out was completed. The patient was placed in the prone position on procedure table and a pillow was placed under the abdomen to reduce lumbar lordosis. The lumbosacral area was prepped and draped in the usual sterile fashion.ere closely monitored during the procedure. Vital signs was monitered during the entire procedure. Using anterior-posterior fluoroscopy, the L5-S1 interlaminar space was identified and the skin over this site was marked and then infiltrated with 1% lidocaine subcutaneously. Subsequently, a 20-gauge Tuohy epidural needle was inserted and advanced toward the epidural space using the ``Loss of resistance technique and guided by AP and lateral fluoroscopy. The correct needle position in the epidural space was verified with the injection of 2 mL of the water soluble contrast dye Isovue 200 contrast and observing an excellent epidurogram with the epidural spread of the dye, after negative aspiration for blood and CSF and in the absence of paresthesias. Again after negative aspiration, a 6 ml mixture containing 40 mg of Depo-medrol ( Preservetive Free ), and 2 ml of preservative free Normal Saline, and 2 ml of preservative free lidocaine 1% solution was injected and a washout of epidurogram was seen. Needle was withdrawn intact, skin was cleansed, and bandages were applied. COMPLICATIONS: None DISPOSITION / PLANS: The patient was placed in a supine position and transferred to the recovery area in a stable condition for observation. There was no evidence of lower extremity motor or sensory deficit after the procedure. Patient was discharged from the recovery room after meeting discharge criteria. Home discharge instructions were given to the patient by the staff. The patient was reexamined prior to discharge. The patient will schedule a follow up in the clinic in 2-4 weeks.
[2023-12-09 11:08] VITALS: PULSE 62
[2023-12-09 11:21] VITALS: BP 136/86
--- NOTE | 2023-12-09 14:24 | FL ---
EXAMINATION TYPE: FL guided pain mgmt statistic DATE OF EXAM: 12/09/2023 FLUOROSCOPY 5 sec FL .08451 DAP dose with BCM One image submitted. [facility], , 12/09/2023 2:22 PM
== END 2023-12-09 11:26 | disposition home or self-care (01) ==
LOC: ORPAIN 08:53
PROVIDERS: ATTEND Specialist
DX: M54.16 Radiculopathy, lumbar region
CPT/HCPCS: 62323

== ENCOUNTER → 2023-12-27 | Outpatient (CLI) | payer MEDICARE, BC ==
[2023-12-27 09:41] VITALS: BP 130/70; PULSE 54; RESP 16
--- NOTE | 2023-12-29 07:53 | P.PAINPG ---
PQRS Measure Charge Sheet Comment: HISTORY OF PRESENT ILLNESS: An 88 yr old female presents today w severe and chronic LBP secondary to radiculopathy, spondylosis and facet arthropathy without myelopathy for evaluaton s/p MANJINDER L5-S1 #1. Pt states she experienced 90% pain relief x 2 wks s/p procedure. Pt states pain level is provoked at 9 /10 in intensity, intermittent, localized in the lower lumbar spine, predominantly axial, burning/ achy in character w occasional BLE shooting pain. Pain is provoked by walking for periods of 5 min or more. Pain is alleviated by medications, topical, PT in 2018, chiropractic treatments semi weekly semi monthly since end of Aug 2023, ice, repositioning and rest. Pt was discharged from chiropractic treatments w a physician guided home stretching program she does 5 times a week since Aug 2022. Interventional procedures include BL RFA L4-L5/ L5-S1 (Aug 2023) Medications include Tramadol 50mg #90, Tyl Arth, Celebrex, Allen Emu, Lidoderm REVIEW OF ORGAN SYSTEMS: CONSTITUTIONAL: No fevers or chills. No recent weight loss. NEUROLOGICAL: + numbness and tingling along the distal extremities. No seizure disorders or headaches. MUSCULOSKELETAL: + pain PSYCHIATRIC: Denies current depression or suicidal thoughts. Physical Examinations : Constitutional : Cooperative , not in acute distress . Neurologic : Cranial nerve II to XII intact. No focal neurological deficits. Psychiatric : alert & oriented x 3. Matching mood & appropriate affect. Judgment & insight intact. Musculoskeletal : Cervical Spine Motor strength in the deltoid and biceps: Normal right side. Normal Left side Motor strength biceps and the wrist extensors: Normal right side . Normal left side Motor strength in the triceps muscle: Normal right side. Normal left side Deep tendon reflexes: Normal at the biceps. Normal at Brachioradialis. Normal at triceps Vertebral body tenderness to deep palpation over Cervical facet loading test: positive bilaterally Spurling test: positive bilaterally Neck distraction test: positive bilaterally Bailey sign: positive bilaterally Lumbar spine Motor strength lower extremities ,thigh and legs 5/5 Right side , 5/5 Left side Deep tendon reflexes : Normal Knee Jerk. Normal Ankle Jerk Vertebral body tenderness over L5 Foley Test positive BL L5-S1 Lumbar facet Loading Test: positive BL L4-L5, L5-S1 Range of motion of the lumbar spine Flexion 30 degrees, extension 10 degrees Straight Leg Raise test: Left/ Right positive at degree Padmini test: positive right / positive left. Severe tenderness over the Sacroiliac joint on the Right / Left sides Gaenslen test: positive bilaterally Seated flexion test: positive bilaterally. Sacral spine : Severe tenderness over the Sacroiliac joint: right side / left side Range of motion: Flexion of the lumbar spine <60 degrees Range of motion: Extension of the lumbar spine <20 degrees Gaenslen's Test positive Jose Alejandro's Test positive Padmini test: positive right side / left side Thigh Thrust Test Sacral Thrust Test Imaging: MRI without contrast of the lumbar spine from 09/22/22 reviewed Assessment/ Plan : Lumbar radiculopathy Recommendation of medication management. Lidoderm 5% #30 w 1 RF. No 50mg #90 needed at this time. Use, side effects, adverse reactions and safe storage discussed. Opiate/ narcotic agreement signed 10/14/22. All questions answered. I have spent greater than 30 minutes on patient care today. Dr Hernández was available by phone for the evaluation of this patient. The time was used to review the medical records including relevant urine studies and Prescription history (MAPs), review of the available imaging, evaluation and examination of the patient, coordination of care with the medical staff and if applicable referring physicians, as well as creation of the medical record PQRS Narrative: Smoking Status Never smoker Narcotic Agreement Date Signed 10/29/22 Hx Alcohol Use (MH) No Home Medications: Ambulatory Orders ALPRAZolam [Xanax] 1 mg PO HS 03/05/20 Acetaminophen [Tylenol Arthritis] 650 mg PO DIRECTED PRN 05/11/23 Aspirin 81 mg PO BID 05/11/23 Losartan/Hydrochlorothiazide [Losartan-Hctz 100-12.5 mg Tab] 1 tab PO DAILY 05/11/23 Magnesium 250 mg PO DAILY 05/11/23 Vit C/E/Zn/Coppr/Lutein/Zeaxan [Preservision Areds 2 Softgel] 1 each PO DAILY 05/11/23 Rosuvastatin [Crestor] 10 mg PO HS 06/24/23 traMADol HCL 100 mg PO TID PRN 07/07/23 Lidocaine 5% Patch [Lidoderm] 1 each TP DAILY 30 Days #30 patch 12/27/23 Controlled Substance Measures - Controlled Substance Measures Is patient prescribed a controlled substance at discharge?: No
== END ==
LOC: PNWHC3 09:21
PROVIDERS: ATTEND Specialist
DX: M47.26 Other spondylosis with radiculopathy, lumbar region (principal); M48.061 Spinal stenosis, lumbar region without neurogenic claudication; Z88.2 Allergy status to sulfonamides; Z88.1 Allergy status to other antibiotic agents
CPT/HCPCS: 99211

== ENCOUNTER → 2024-01-11 | Outpatient (CLI) | payer MEDICARE, BC ==
[2024-01-11 16:22] LABS: BUN/Creat Ratio 20.58 Ratio (12.00-20.00); Blood Urea Nitrogen 24.7 mg/dL (9.0-27.0); Chloride 102 mmol/L (96-109); Glucose 93 mg/dL (70-110); Potassium 4.3 mmol/L (3.5-5.5); Sodium 137 mmol/L (135-145)
[2024-01-11 16:23] LABS: Calcium 9.7 mg/dL (8.7-10.3)
[2024-01-11 16:53] LABS: HCT 40.1 % (37.2-46.3); HGB 13.4 g/dL (12.0-15.0); MCH 36.5 pg (27.0-32.0); MCHC 33.4 g/dL (32.0-37.0); MCV 109.3 FL (80.0-97.0); NRBC Per 100 WBC 0 X 10*3/uL (0.00-0.01); Platelet Count 251 X 10*3/uL (140-440); RBC 3.67 X 10*6/uL (4.10-5.20); RDW 13.1 % (11.5-14.5); WBC 8.47 X 10*3/uL (4.50-10.00)
[2024-01-11 16:59] LABS: INR 1.08 sec (0.93-1.11); Prothrombin Time 11.6 sec (9.9-11.9)
[2024-01-11 17:48] LABS: Basophils # (A) 0.05 X 10*3/uL (0.00-0.10); Basophils % (A) 0.6 %; Elliptocytes 2+; Eosinophils # (A) 0.15 X 10*3/uL (0.04-0.35); Eosinophils % (A) 1.8 %; Lymphocytes # (A) 3.46 X 10*3/uL (0.90-5.00); Lymphocytes % (A) 40.9 %; Macrocytosis (M) 2+; Monocytes # (A) 0.57 X 10*3/uL (0.20-1.00); Monocytes % (A) 6.7 %; Neutrophils # (A) 4.22 X 10*3/uL (1.80-7.70); Neutrophils % (A) 49.8 %
== END | disposition home or self-care (01) ==
LOC: LABPAT 08:24
PROVIDERS: ATTEND Orthopaedic Surgery
DX: Z01.812 Encounter for preprocedural laboratory examination (principal); M19.012 Primary osteoarthritis, left shoulder; Z22.322 Carrier or suspected carrier of Methicillin resistant Staphylococcus aureus
CPT/HCPCS: 36415; 80048; 85025; 85610; 87070

== ENCOUNTER 2024-01-25 08:00 | Day surgery (SDC) | payer MEDICARE, BC ==
--- NOTE | 2024-01-24 08:45 | P.HPOR ---
History of Present Illness H&P Date: 01/24/24 Chief Complaint: Right shoulder pain The patient is an 80-year-old [id number] female who presents with right shoulder pain for the past several years worsening recently. She's having pain with any attempted use and at night. She's tried medications along with activ ity modifications and home exercises without any real relief. She has daily pain that limits her significantly. Review of Systems Per HPI Past Medical History Past Medical History: Eye Disorder, Fibromyalgia, Hyperlipidemia, Hypertension, Osteoarthritis (OA) Additional Past Medical History / Comment(s): FREQUENT UTI'S, glaucoma, beginning of macular degeneration History of Any Multi-Drug Resistant Organisms: None Reported Past Surgical History: Appendectomy, Cholecystectomy, Hernia Repair, Hysterectomy, Joint Replacement, Tonsillectomy Additional Past Surgical History / Comment(s): LEFT KNEE REPLACED x2, right knee partial replacement, pain clinic procedure, left shoulder replacement Past Anesthesia/Blood Transfusion Reactions: No Reported Reaction Smoking Status: Never smoker - Past Family History Mother Family Medical History: No Reported History Medications and Allergies Home Medications Medication Instructions Recorded Confirmed Type ALPRAZolam [Xanax] 1 mg PO HS 03/05/20 01/21/24 History Acetaminophen [Tylenol Arthritis] 650 mg PO DIRECTED PRN 05/11/23 01/21/24 History Aspirin 81 mg PO Q48H 05/11/23 01/21/24 History Losartan/Hydrochlorothiazide 1 tab PO DAILY 05/11/23 01/21/24 History [Losartan-Hctz 100-12.5 mg Tab] Magnesium 250 mg PO DAILY 05/11/23 01/21/24 History Vit C/E/Zn/Coppr/Lutein/Zeaxan 1 each PO BID 05/11/23 01/21/24 History [Preservision Areds 2 Softgel] traMADol HCL 100 mg PO TID PRN 07/07/23 01/21/24 History Lidocaine 5% Patch [Lidoderm] 1 each TP DAILY 30 Days #30 patch 12/27/23 01/21/24 Rx Lipitor (Unk) 1 tab PO HS 01/21/24 History Metoprolol Succinate (ER) [Toprol 12.5 mg PO DAILY PRN 01/21/24 01/21/24 History Xl] Allergies Allergy/AdvReac Type Severity Reaction Status Date / Time sulfamethoxazole Allergy Rash/Hives Verified 01/21/24 13:49 [From Bactrim] trimethoprim [From Bactrim] Allergy Rash/Hives Verified 01/21/24 13:49 Physical Examination - Shoulder right Appearance: effusion Tenderness with palpation: anterior, bicipital groove Pain: with abduction, with forward flexion ROM: forward flexion: 120 degrees ROM: internal rotation: lower lumbar ROM: external rotation: 40 degrees Crepitus with motion: Yes Strength: abduction: 5/5 Strength: external rotation: 5/5 Tests: internal impingement tests: positive, external impingment tests: positive Results She is a well-developed well-nourished female approximately 5 foot 7, 219 pounds of endomorphic habitus. HEENT exam is nonfocal, neck is supple. She has limited painful passive and active motion of the right shoulder. Castillo, Neer sign, and speed tests are positive. Her distal neurovascular exam appears intact in the right upper extremity - Diagnostic results Shoulder x-ray: image reviewed (3 views of the right shoulder obtained in the office show severe glenohumeral joint osteoarthrosis with [id number] changes and subchondral sclerosis.) Assessment and Plan Assessment: Right severe glenohumeral joint osteoarthrosis Plan: I talked to the patient at length regarding her condition along with treatment options. At this point she's quite symptomatical and limited because of pain related to her right shoulder osteoarthrosis despite conservative measures. After a thorough discussion she opts to proceed with surgery. We'll proceed with right total shoulder arthroplasty. Risks and benefits were discussed at length in layman's terms. We will likely keep her for 23-year-old postoperatively.
[~2024-01-25 08:00] MED LIST changes: +HYDROmorphone 0.5 MG/0.5 ML SYRINGE IVP PRN; -LACTATED RINGERS 1,000 ML IV SCH; +LIDOCAINE 1% (10MG/ML) FOR IV START INTRADERMA PRN; +TRANEXAMIC 1,000 MG/100ML-NACL 1,000 MG in SALINE 1 100ML.BAG IVPB PRN
[2024-01-25] MEDS: DEXAMETHASONE SOD PHOSPHATE 4 MG/ML 1 ML VIAL IV ONE (08:53)
[2024-01-25] MEDS: ACETAMINOPHEN TAB 500 MG TAB PO PRN (08:53)
[2024-01-25] MEDS: LACTATED RINGERS 1,000 ML IV SCH (08:53)
[2024-01-25] MEDS: ONDANSETRON 4 MG/2 ML VIAL IVP ONE (08:53)
[2024-01-25] MEDS: MELOXICAM 7.5 MG TAB PO PRN (08:54)
[2024-01-25] MEDS: IV FLUID CONTINUATION 1,000 ML IV ONE (08:56)
[2024-01-25] MEDS: MIDAZOLAM 2 MG/2 ML VIAL IV PRN (09:25)
[2024-01-25] MEDS: fentaNYL (PF) 50 MCG/ML 2 ML AMP IVP PRN (09:27)
--- NOTE | 2024-01-25 09:43 | P.ANPRN ---
Procedure Note - Anesthesia - Nerve Block Performed Right Interscalene Single Time Out Performed: Yes Date of Procedure: 01/25/24 Procedure Start Time: Procedure Stop Time: Location of Patient: PreOp Indication: Acute Post-Operative Pain, Requested by Surgeon Sedation Type: Sedate with meaningful contact maintained Preparation: Sterile Prep Position: Supine Needle Types: Pajunk Needle Gauge: 21 Ultrasound used to visualize needle placement: Yes Ultrasound used to observe medication spread: Yes Injectate: 0.5% Ropivacaine (see comment for volume) (25 ml + 4 mg D examethasone) Blood Aspirated: No Pain Paresthesia on Injection Noted: No Resistance on Injection: Normal Image Stored and Saved: Yes Events: Uneventful and Well Tolerated
[2024-01-25] MEDS: ceFAZolin 1,000 MG in SODIUM CHLORIDE 0.9% 1,000 ML IRRIGATION ONE (10:31)
[2024-01-25] MEDS ORDERED: ONDANSETRON 4 MG/2 ML VIAL IVP PRN (11:48)
[2024-01-25] MEDS ORDERED: HYDROmorphone 0.5 MG/0.5 ML SYRINGE IVP PRN ×2 (11:48)
--- NOTE | 2024-01-25 12:04 | P.OP ---
Date of Procedure: 01/25/24 Preoperative Diagnosis: Right severe glenohumeral joint osteoarthrosis Postoperative Diagnosis: Same Procedure(s) Performed: Right total shoulder arthroplasty Implants: [employer] xtend size 12 press-fit humeral stem, size 12 body, 44 x 18 eccentric humeral head, 44 mm cemented central pegged glenoid component. Anesthesia: rene LANZA Surgeon: Lamin Allen Facing Grinder #1: Syd Christopher Estimated Blood Loss (ml): 150 Pathology: none sent Condition: stable Disposition: PACU Indications for Procedure: The patient is an 88-year-old female who presents with progressive right shoulder pain secondary to glenohumeral joint osteoarthrosis despite conservative measures. A discussion of the risks and benefits of operative intervention versus continued conservative measures was made with the patient. She opted to proceed with surgery. Operative risks include infection, neurovascular injury, development of blood clots, fracture, possible component loosening/failure and possible need for subsequent procedures was discussed. Informed consent was obtained. Operative Findings: As below Description of Procedure: The patient was brought to the operating room, and after induction of general anesthesia was placed in the beachchair position. The bony prominences were appropriately padded. The right upper extremity was prepped and draped in normal fashion. A deltopectoral incision was then made lateral to the coracoid process extending approximately 12 cm. The skin was incised sharply. Subcutaneous tissues were divided bluntly. Electrocautery was used for hemost asis. The deltopectoral interval was identified and the cephalic vein gently retracted laterally with the deltoid. Subdeltoid adhesions were bluntly dissected. A self-retaining retractor was placed. The clavipectoral fascia was opened and the conjoined tendon gently retracted medially. The upper one third of the pectoralis major was released to help facilitate exposure. The biceps was identified and the sheath was opened. The rotator interval was opened. The biceps was tenotomized and allowed to retract distally. The the subscapularis peel was then performed. The humeral head was then exposed releasing the capsule off the humeral neck. The shoulder was gently dislocated. A starting hole was made in the head in line with the humeral shaft. The shaft was reamed by hand up to 12 mm. There is good distal chatter. The cutting guide was placed planning on 8 cut flush with the rotator cuff insertion and 30 of retroversion. The cutting block was pinned in place. The humeral head cut was then made. This measured most appropriately at 12 mm. Residual inferior osteophytes were carefully removed flush with the [place] cortical bone. A posterior glenoid retractor was placed. The glenoid was then exposed releasing the labrum from the 12-6 o'clock position. Residual labral tissue was removed. The glenoid sized most appropriate 44 mm. A guidewire was then inserted plann ing on the appropriate version. The glenoid was reamed down to a bleeding bony surface. The central pedicle was drilled. The alignment guide was placed in the peripheral peg holes drilled. The trial size 44 mm glenoid was placed and was fully seated. There was good anterior to posterior and inferior to superior fit. The trial component was removed. Pulsatile lavage was utilized. The bony surface was dried. The peripheral peg holes were then pressurized with cement utilizing a syringe. Excess cement was removed. A central peg glenoid was then placed and was fully seated. This was gently impacted. This was held in place until the cement had sufficiently hardened. Attention was then paid again towards preparing the proximal humerus. The appropriate broach was placed in 30 of retroversion and was fully seated. An eccentric 44 x 18 mm humeral head was placed. The shoulder was gently reduced. It was taken through a range of motion. It was felt to be stable in flexion and extension with internal and external rotation. I felt there was adequate synagogue of soft tissue tension. The shoulder was gently dislocated. The trial components were then removed. A #2 Ethibond was placed laterally for reattachment of the lesser tuberosity. The humeral stem was inserted in 30 of retroversion and was fully seated. There was good rotational stability. The eccentric 44 x 18 mm humeral head was gently impacted. The shoulder was then gently reduced and taken through range of motion and was felt to be stable. Pulsatile lavage was utilized. Subscapularis was reattached utilizing #2 Ethibond suture. The rotator interval was closed with #2 Ethibond suture. She had minimal drainage at this point therefore a deep drain was not placed. The deltopectoral interval was closed with interrupted 2-0 Vicryl sutures. The subcu tissues were reapproximated with interrupted 2-0 Vicryl sutures. The skin was reprepped with 3-0 subcuticular Prolene suture. Steri-Strips were applied. A sterile dressing was applied in addition to a sling. The patient was then awoken from general anesthesia and transferred to recovery room in good condition. Blood loss was estimated at 150 mL. No complications were incurred. Sponge and needle counts were correct at the end the case. VICTOR MANUEL Ma assisted during the major components the case to include positioning, exposure, resection, implantation, and closure.
--- NOTE | 2024-01-25 12:54 | XR ---
EXAMINATION TYPE: XR shoulder limited RT DATE OF EXAM: 01/25/2024 COMPARISON: NONE CLINICAL INDICATION: Female, 88 years old with history of s/p right total shoulder arthroplasty; TECHNIQUE: Two views submitted FINDINGS: There is surgical change right shoulder in near anatomic alignment. There is soft tissue edema and s oft tissue emphysema neck/air compatible with recent surgery. IMPRESSION: 1. Postoperative change. [facility], , 01/25/2024 12:52 PM
[2024-01-25] MEDS ORDERED: METOPROLOL SUCCINATE (ER) 25 MG TAB.ER.24H PO PRN (13:26)
[2024-01-25] MEDS ORDERED: traMADol 50 MG TAB PO PRN (13:26)
[2024-01-25] MEDS: traMADol 50 MG TAB PO SCH (15:45)
--- NOTE | 2024-01-25 16:55 | P.CONS ---
History of Present Illness - Reason for Consult Consult date: 01/25/24 Medical Management Requesting physician: Lamin Allen - History of Present Illness History of Presenting Illness: Patient is a very pleasant-88 year-old female with a past medical history of hypertension, hyperlipidemia, fibromyalgia, glaucoma with macular degeneration, and osteoarthritis. She is currently admitted under orthopedic surgery team status post right total shoulder arthroplasty. We were consulted for medical management throughout hospitalization. Patient was seen and fully evaluated in room 469 shortly after completion of surgical procedure. Reports currently postoperative pain is controlled in right shoulder. She expresses frustration over numbness from procedure secondary to pain block in block and states that she feels like she wants to move her arm the pain block and states that she feels like she wants to move her arm but just cannot right now. Postoperative dressing in place. Right arm in sling. Patient is visiting with her daughter at bedside. She denies having any chest pain, palpitations, shortness of breath, cough or congestion, experiencing any dizziness/lightheadedness, nausea or vomiting, or any other complaints at this time. She reports she is tolerating oral intake with clear liquids and nursing staff instructed to advance diet as tolerated. Patient states she has not yet urinated since completion of surgical procedure. Review of systems: Pertinent positives and negatives as discussed in HPI, a complete review of systems was performed and all other systems are negative. Physical exam: Vital signs reviewed and stable. General: Nontoxic, no distress and appears stated age. Derm: Skin warm and dry, normal coloration for ethnicity. Head: Atraumatic, normocephalic and symmetric. Eyes: EOM's intact, no lid lag, and anicteric sclera Mouth: no lip lesions, mucus membranes moist Cardiovascular: regular rate and rhythm with normal S1S2, no murmur, positive posterior tibial pulses bilaterally, and cap refill < 2 seconds. Lungs: Respirations even, regular, and unlabored on room air. Lungs CTA bilaterally, no rhonchi, no rales, no wheezing, and no accessory muscle usage. Abdominal: soft, nontender to palpation, no guarding, no appreciable organomegaly Ext: Movement and sensation intact.. No gross muscle atrophy, no edema, no contractures. Postoperative dressing in place to right shoulder and right arm in sling. Neuro: Speech clear, face symmetrical and CN II-XII grossly intact with no noted focal neuro deficits Psych: Alert and oriented to person, place, time, and situation. Appropriate and pleasant affect. Assessment and Plan of Care: Status post right total shoulder arthroplasty Management per primary admitting orthopedic surgery team including DVT prophylaxis, pain management, wound/dressing management, weightbearing and advancement of activity of right arm. Continue aspirin 81 mg daily. Hypertension Monitor vital signs and continue daily medication regimen with hydrochlorothi azide 12.5 mg daily and losartan 100 mg daily. Hyperlipidemia Continue Lipitor 40 mg nightly. Vital signs reviewed and stable. Blood pressure 134/67, heart rate 85, respiratory rate 16, and SpO2 of 97% on room air. -Preoperative labs completed 01/11/2024 were reviewed. CBC showing WBC count 8.47, hemoglobin 13.4, platelet count of 251. BMP showing sodium 137, potassium 4.3, chloride 102, bicarb 25, anion gap 10, BUN 24.7, creatinine 1.2, GFR 44. Thank you for allowing us to participate in the care of this pleasant patient. Do not hesitate to contact us with questions. Someone can be reached from the [facility] hospitalist group all hours of the day at [phone] or via [employer]. Patient was seen independently by Nurse Practitioner. This document was prepared using [employer] dictation software. Please allow for errors in director of preclinical research while rare they do occur. Zain Stinson NP rendered care for this patient independently, reviewed the findings and plan as documented in the note above and agree with plan. I did not physically speak with or examine the patient on this date. Past Medical History Past Medical History: Eye Disorder, Fibromyalgia, Hyperlipidemia, Hypertension, Osteoarthritis (OA) Additional Past Medical History / Comment(s): FREQUENT UTI'S, glaucoma, beginning of macular degeneration History of Any Multi-Drug Resistant Organisms: None Reported Past Surgical History: Appendectomy, Cholecystectomy, Hernia Repair, Hysterec gaetano, Joint Replacement, Tonsillectomy Additional Past Surgical History / Comment(s): LEFT KNEE REPLACED x2, right knee partial replacement, pain clinic procedure, left shoulder replacement Past Anesthesia/Blood Transfusion Reactions: No Reported Reaction Smoking Status: Never smoker - Past Family History Mother Family Medical History: No Reported History Medications and Allergies Home Medications Medication Instructions Recorded Confirmed Type ALPRAZolam [Xanax] 1 mg PO HS 03/05/20 01/21/24 History Acetaminophen [Tylenol Arthritis] 650 mg PO DIRECTED PRN 05/11/23 01/21/24 History Aspirin 81 mg PO Q48H 05/11/23 01/21/24 History Losartan/Hydrochlorothiazide 1 tab PO DAILY 05/11/23 01/25/24 History [Losartan-Hctz 100-12.5 mg Tab] Magnesium 250 mg PO DAILY 05/11/23 01/25/24 History Vit C/E/Zn/Coppr/Lutein/Zeaxan 1 each PO BID 05/11/23 01/25/24 History [Preservision Areds 2 Softgel] traMADol HCL 100 mg PO TID PRN 07/07/23 01/25/24 History Lidocaine 5% Patch [Lidoderm] 1 each TP DAILY 30 Days #30 patch 12/27/23 01/25/24 Rx Lipitor (Unk) 1 tab PO HS 01/21/24 History Metoprolol Succinate (ER) [Toprol 12.5 mg PO DAILY PRN 01/21/24 01/25/24 History Xl] Allergies Allergy/AdvReac Type Severity Reaction Status Date / Time sulfamethoxazole Allergy Rash/Hives Verified 01/25/24 08:31 [From Bactrim] trimethoprim [From Bactrim] Allergy Rash/Hives Verified 01/25/24 08:31 Physical Exam Vitals: Vital Signs Temp Pulse Pulse Resp BP Pulse Ox 01/25/24 13:00 60 14 114/53 94 L 01/25/24 12:43 73 14 120/55 95 01/25/24 12:27 57 L 14 127/58 97 01/25/24 12:12 78 14 120/58 96 01/25/24 11:57 97.4 F L 71 14 108/63 93 L 01/25/24 09:49 67 16 133/60 99 01/25/24 08:43 98 F 81 16 153/69 98 Intake and Output 01/24/24 01/25/24 01/25/24 22:59 06:59 14:59 Intake Total 851 Output Total 150 Balance 701 Intake: IV 851 Output: Estimated Blood Loss 150 Other: Weight 86.8 kg
[2024-01-25 21:02] LABS: Basophils % (A) 0 %; Eosinophils # (A) 0.1 k/uL (0-0.7); Eosinophils % (A) 1 %; HCT 36.2 % (34.0-46.0); HGB 11.9 gm/dL (11.4-16.0); Lymphocytes % (A) 9 %; MCH 36.8 pg (25.0-35.0); MCHC 32.9 g/dL (31.0-37.0); MCV 111.9 fL (80.0-100.0); Macrocytosis Marked; Mean Platelet Volume 8.4; Monocytes # (A) 0.2 k/uL (0-1.0); Monocytes % (A) 2 %; Neutrophils # (A) 9.7 k/uL (1.3-7.7); Neutrophils % (A) 88 %; Platelet Count 182 k/uL (150-450); RBC 3.23 m/uL (3.80-5.40); RDW 12.5 % (11.5-15.5); WBC 11.1 k/uL (3.8-10.6)
[2024-01-25] MEDS: ALPRAZolam 1 MG TAB PO SCH (21:32)
[2024-01-25] MEDS: VIT A,C & E-LUTEIN-MINERALS 1 EACH TAB PO SCH (21:32)
[2024-01-25] MEDS: ATORVASTATIN 40 MG TAB PO SCH (21:32)
[2024-01-25] MEDS: SENNOSIDES-DOCUSATE SODIUM 1 EACH TAB PO PRN (21:32)
[2024-01-26] MEDS: hydrOXYzine pamoate 25 MG CAP PO PRN (00:16)
[2024-01-26] MEDS: Acetaminophen-Codeine 300-30mg TAB PO PRN (03:41)
[2024-01-26 04:12] LABS: HCT 35.4 % (34.0-46.0); HGB 11.9 gm/dL (11.4-16.0); MCH 37.1 pg (25.0-35.0); MCHC 33.5 g/dL (31.0-37.0); Macrocytosis Marked; Mean Platelet Volume 8.5; Platelet Count 210 k/uL (150-450); RDW 12.6 % (11.5-15.5); WBC 14.2 k/uL (3.8-10.6)
[2024-01-26 04:13] LABS: MCV 110.7 fL (80.0-100.0)
[2024-01-26 04:17] LABS: African American GFR (CKD) 48 (>60 ml/min/1.73 sqM); Anion Gap 7 mmol/L; Blood Urea Nitrogen 23 mg/dL (7-17); Calcium 8.9 mg/dL (8.4-10.2); Carbon Dioxide 16 mmol/L (22-30); Chloride 107 mmol/L (98-107); Glucose 138 mg/dL (74-99); Magnesium 2.1 mg/dL (1.6-2.3); Non-African American GFR(CKD) 41 (>60 ml/min/1.73 sqM); Potassium 3.8 mmol/L (3.5-5.1); Sodium 130 mmol/L (137-145)
[2024-01-26 07:36] VITALS: BP 112/61; PULSE 70; RESP 18; TEMP 98.2
[2024-01-26] MEDS: LIDOCAINE 4% PATCH TOPICAL SCH (08:24)
[2024-01-26] MEDS: LOSARTAN 50 MG TAB PO SCH (08:25)
[2024-01-26] MEDS: ASPIRIN 81 MG PO SCH (08:25)
[2024-01-26] MEDS: MAGNESIUM OXIDE 400 MG TAB PO SCH (08:26)
[2024-01-26] MEDS: hydroCHLOROthiazide 12.5 MG CAP PO SCH (08:26)
[2024-01-26] MEDS ORDERED: NON FORMULARY DRUG (Losartan/Hydrochlorothiazide [Losartan-Hctz 100-12.5 Mg Tab] 1 EACH Ta PO SCH (09:00)
[2024-01-26] MEDS ORDERED: SODIUM CHLORIDE 0.9% 1,000 ML IV SCH (12:45)
--- NOTE | 2024-01-26 12:51 | P.PN ---
Subjective Progress Note Date: 01/26/24 Hospital Course: Patient is a very pleasant-88 year-old female with a past medical history of hypertension, hyperlipidemia, fibromyalgia, glaucoma with macular degeneration, and osteoarthritis. She is currently admitted under orthopedic surgery team status post right total shoulder arthroplasty. We were consulted for medical management throughout hospitalization. Physical exam: Evaluated at bedside this morning. She is postoperative day 1 status post right total shoulder arthroplasty. Patient reports sensation and movement of right arm improved and she is doing well this morning. She reports she had to take a pain pill this morning but states otherwise doing good. Postoperative dressing and ice pack in place to right shoulder and right arm in sling. Patient denies having any headache, lightheadedness, dizziness, chest pain, palpitations, shortness of breath, or experiencing any numbness/tingling in her extremities. Vital signs reviewed and stable. General: Nontoxic, no distress and appears stated age. Derm: Skin warm and dry, normal coloration for ethnicity. Head: Atraumatic, normocephalic and symmetric. Eyes: EOM's intact, no lid lag, and anicteric sclera Mouth: no lip lesions, mucus membranes moist Cardiovascular: regular rate and rhythm with normal S1S2, no murmur, positive posterior tibial pulses bilaterally, and cap refill < 2 seconds. Lungs: Respirations even, regular, and unlabored on room air. Lungs CTA bilaterally, no rhonchi, no rales, no wheezing, and no accessory muscle usage. Abdominal: soft, nontender to palpation, no guarding, no appreciable organomegaly Ext: Movement and sensation intact.. No gross muscle atrophy, no edema, no contractures. Postoperative dressing in place to right shoulder and right arm in sling. Neuro: Speech clear, face symmetrical and CN II-XII grossly intact with no noted focal neuro deficits Psych: Alert and oriented to person, place, time, and situation. Appropriate and pleasant affect. Assessment and Plan of Care: Status post right total shoulder arthroplasty -Management per primary admitting orthopedic surgery team including DVT prophylaxis, pain management, wound/dressing management, weightbearing and advancement of activity of right arm. -Continue aspirin 81 mg daily. Leukocytosis -Reactive. No signs of infection. No need for further intervention or workup at this time. Macrocytosis -Recommend outpatient workup for folic acid/vitamin B12 deficiency. Will start patient on folic acid 1 mg tablets daily. Hypertension -Monitor vital signs and continue daily medication regimen with hydrochlorothiazide 12.5 mg daily and losartan 100 mg daily. Hyperlipidemia -Continue Lipitor 40 mg nightly. Data reviewed: -Vital signs reviewed and stable. Blood pressure 112/61, heart rate 70, respiratory rate 18, temp 98.2 F, and SpO2 of 94% on room air. -Postoperative labs reviewed. CBC showing mild leukocytosis with WBC count of 14.2 macrocytosis with MCV of 110.7. BMP showing mild hyponatremia sodium of 130 slightly elevated renal function with BUN of 23, creatinine of 1.16, GFR 41 which appears to be at baseline patient's baseline creatinine with baseline creatinine of 1.1.. Magnesium 2.1. Thank you for allowing us to participate in the care of this pleasant patient. Do not hesitate to contact us with questions. Someone can be reached from the [facility] hospitalist group all hours of the day at [phone] or via [employer]. Patient was seen independently by Nurse Practitioner. This document was prepared using [employer] dictation software. Please allow for errors in model artists' while rare they do occur. Zain Stinson NP rendered care for this patient independently, reviewed the findings and plan as documented in the note above and agree with plan. I did not physically speak with or examine the patient on this date. Objective - Vital Signs Vital signs: Vital Signs Temp 98.2 F 01/26/24 07:11 Pulse 70 01/26/24 07:11 Resp 18 01/26/24 07:11 BP 112/61 01/26/24 07:11 Pulse Ox 94 L 01/26/24 07:11 FiO2 Intake & Output 01/25/24 01/26/24 01/26/24 18:59 06:59 18:59 Intake Total 851 500 Output Total 150 Balance 701 500 Weight 86.8 kg Intake: IV 851 Oral 500 Output: Estimated Blood Loss 150 Other: # Voids 1 1 - Labs CBC & Chem 7: 01/26/24 03:18 01/26/24 03:18 Labs: Abnormal Lab Results - Last 24 Hours (Table) 01/25/24 01/26/24 01/26/24 Range/Units 20:41 03:18 03:18 WBC 11.1 H 14.2 H (3.8-10.6) k/uL RBC 3.23 L 3.20 L (3.80-5.40) m/uL MCV 111.9 H 110.7 H (80.0-100.0) fL MCH 36.8 H 37.1 H (25.0-35.0) pg Neutrophils # 9.7 H (1.3-7.7) k/uL Macrocytosis Marked A Marked A Sodium 130 L (137-145) mmol/L Carbon Dioxide 16 L (22-30) mmol/L BUN 23 H (7-17) mg/dL Creatinine 1.18 H (0.52-1.04) mg/dL Glucose 138 H (74-99) mg/dL
--- NOTE | 2024-01-26 12:55 | P.DS ---
Providers Date of admission: 01/25/2024 Expected date of discharge: 01/26/24 Attending physician: Lamin Allen Consults: 01/25/24 11:48 Consult Physician Routine Consulting Provider: Josefa Calderon Consult Reason/Comments: medical management s/p right total shoulder arthroplasty Do you want consulting provider notified?: Yes Primary care physician: Stated None Hospital Course: Date of admission: 01/25/2024 Date of discharge: 01/26/2024 Admission diagnosis: Right severe glenohumeral joint osteoarthrosis Discharge diagnosis: Same Attending physician: Dr. Allen Surgical procedures: Right total shoulder arthroplasty Brief history: Patient is a 88-year-old female with a history of right severe glenohumeral joint osteoarthrosis. At this point patient has failed conservative treatment measures and has opted to proceed with a elective right total shoulder arthroplasty. Hospital course: Details of patient's surgery can be found in operative report. Patient tolerated the procedure well and was subsequently transported to orthopedic floor. Patient's orthopeidc and medical care was provided daily. Patient had daily laboratory tests performed for evaluation of overall blood counts. Patient had daily physical therapy to include strengthening range of motion as well as education with walker ambulation. Patient was treated with aspirin for their postoperative DVT prophylaxis during their inpatient stay. Patient was noted to have a relatively uneventful postoperative course. Patient reported satisfactory pain control with oral pain medications by postoperative day 1. Patient showed satisfactory progress with physical therapy. Patient moved steadily through the program and had no difficulty meeting the goals by postoperative day 1. Given patient's otherwise satisfactory course and having met physical therapy goals, plan is to discharge patient home with home care on postoperative day 1. Discharge condition/disposition: Patient will be discharged home in stable condition. Discharge medications: Instructions are given on resumption of patient's normal daily medications per primary care recommendation, in addition patient will be prescribed Tylenol with codeine; senna; aspirin. Orthopedic Discharge Instructions: 1. Wound care and infection precautions, keep incision dry and covered while showering, no lotions, creams, moisturizers. No soaking, pools, hot tubs. Do not scrub over incision. 2. Non-weight bearing right upper extremity until follow-up. 3. Ice when necessary. Do not exceed 20 minutes per hour with ice pack. 4. Utilize sling until seen at first follow up appointment. 5. Pain meds and anticoagulants per prescription. 6. Pain medication has potential to cause constipation. Increase oral fluid and fiber intake. Contact primary care provider if you have not had a bowel movement within 48 hours after discharge. 7. No anti-inflammatory medication until discussed at first post operative visit, this including Motrin, Aleve, Mobic, Diclofenac. 8. Follow up in office at 2 weeks postop with Elbert Teixeira PA-C / Syd Christopher PA-C 9. Follow up with your primary care doctor 7-10 days after discharge. 10. Contact [facility] with any questions, . Keep incision clean, dry, intact. While showering, cover incision with Saran wrap. Keep steri-strips on until follow-up appointment in office in 2 weeks. Assessment: Right severe glenohumeral joint osteoarthrosis Procedures: Right total shoulder arthroplasty Patient Condition at Discharge: Good Plan - Discharge Summary Discharge Rx Participant: Yes New Discharge Prescriptions: New Folic Acid 1 mg PO DAILY 30 Days #30 tablet Continue ALPRAZolam [Xanax] 1 mg PO HS Magnesium 250 mg PO DAILY Metoprolol Succinate (ER) [Toprol XL] 12.5 mg PO DAILY PRN PRN Reason: as directed Losartan/Hydrochlorothiazide [Losartan-Hctz 100-12.5 mg Tab] 1 tab PO DAILY Aspirin 81 mg PO Q48H Vit C/E/Zn/Coppr/Lutein/Zeaxan [Preservision Areds 2 Softgel] 1 each PO BID Acetaminophen [Tylenol Arthritis] 650 mg PO DIRECTED PRN PRN Reason: Pain Lidocaine 5% Patch [Lidoderm 5% Patch] 1 each TP DAILY 30 Days #30 patch Lipitor (Unk) 1 tab PO HS No Action traMADol HCL 100 mg PO TID PRN PRN Reason: Pain Discharge Medication List ALPRAZolam [Xanax] 1 mg PO HS 03/05/20 [History] Acetaminophen [Tylenol Arthritis] 650 mg PO DIRECTED PRN 05/11/23 [History] Aspirin 81 mg PO Q48H 05/11/23 [History] Losartan/Hydrochlorothiazide [Losartan-Hctz 100-12.5 mg Tab] 1 tab PO DAILY [History] Magnesium 250 mg PO DAILY 05/11/23 [History] Vit C/E/Zn/Coppr/Lutein/Zeaxan [Preservision Areds 2 Softgel] 1 each PO BID 05/11/23 [History] traMADol HCL 100 mg PO TID PRN 07/07/23 [History] Lidocaine 5% Patch [Lidoderm 5% Patch] 1 each TP DAILY 30 Days #30 patch 12/27/23 [Rx] Lipitor (Unk) 1 tab PO HS 01/21/24 [History] Metoprolol Succinate (ER) [Toprol XL] 12.5 mg PO DAILY PRN 01/21/24 [History] Folic Acid 1 mg PO DAILY 30 Days #30 tablet 01/26/24 [Rx] Follow up Appointment(s)/Referral(s): Syd Christopher PAC [PHYSICIAN CLEAN ROOM OPERATOR] - 2 Weeks Keyanna Dong MD [REFERRING] - 1 Week Patient Instructions/Handouts: Shoulder Arthroplasty (GEN) Activity/Diet/Wound Care/Special Instructions: Orthopedic Discharge Instructions: 1. Wound care and infection precautions, keep incision dry and covered while showering, no lotions, creams, moisturizers. No soaking, pools, hot tubs. Do not scrub over incision. 2. Non-weight bearing right upper extremity until follow-up. 3. Ice when necessary. Do not exceed 20 minutes per hour with ice pack. 4. Utilize sling until seen at first follow up appointment. 5. Pain meds and anticoagulants per prescription. 6. Pain medication has potential to cause constipation. Increase oral fluid and fiber intake. Contact primary care provider if you have not had a bowel m ovement within 48 hours after discharge. 7. No anti-inflammatory medication until discussed at first post operative visit, this including Motrin, Aleve, Mobic, Diclofenac. 8. Follow up in office at 2 weeks postop with Elbert Teixeira PA-C / Syd Christopher PA-C 9. Follow up with your primary care doctor 7-10 days after discharge. 10. Contact [facility] with any questions, . Keep incision clean, dry, intact. While showering, cover incision with Saran wrap. Keep steri-strips on until follow-up appointment in office in 2 weeks. Discharge Disposition: HOME SELF-CARE
--- NOTE | 2024-01-26 13:27 | P.PN ---
Subjective Progress Note Date: 01/26/24 Principal diagnosis: Right severe glenohumeral joint osteoarthrosis Patient was seen at bedside this morning lying semirecumbent position with dressing and sling present throughout upper extremity. Patient says recovery is going well. Patient says she has been walking around the room without issue since surgery. Patient says she will be going home to stay with her daughter a nd son. Patient says pain is well-controlled oral medication. Patient denies any other issues at this time. Objective - Vital Signs Vital signs: Vital Signs Temp 98.2 F 01/26/24 07:11 Pulse 70 01/26/24 07:50 Resp 18 01/26/24 07:50 BP 112/61 01/26/24 07:11 Pulse Ox 94 L 01/26/24 07:11 FiO2 Intake & Output 01/25/24 01/26/24 01/26/24 18:59 06:59 18:59 Intake Total 851 500 Output Total 150 Balance 701 500 Weight 86.8 kg Intake: IV 851 Oral 500 Output: Estimated Blood Loss 150 Other: # Voids 1 1 - Exam Right shoulder: Incision is clean, dry, and intact. The dressing is in good condition. There is minimal soft tissue swelling and ecchymosis surrounding the medial and lateral aspects of the incision. Calf is soft, no tenderness with palpation. Plantar flexion, dorsiflexion, EHL, FHL are intact. Sensory exam to light touch throughout the extremity is intact, dorsal pedis pulses 2+. - Labs CBC & Chem 7: 01/26/24 03:18 01/26/24 03:18 Labs: Abnormal Lab Results - Last 24 Hours (Table) 01/25/24 01/26/24 01/26/24 Range/Units 20:41 03:18 03:18 WBC 11.1 H 14.2 H (3.8-10.6) k/uL RBC 3.23 L 3.20 L (3.80-5.40) m/uL MCV 111.9 H 110.7 H (80.0-100.0) fL MCH 36.8 H 37.1 H (25.0-35.0) pg Neutrophils # 9.7 H (1.3-7.7) k/uL Macrocytosis Marked A Marked A Sodium 130 L (137-145) mmol/L Carbon Dioxide 16 L (22-30) mmol/L BUN 23 H (7-17) mg/dL Creatinine 1.18 H (0.52-1.04) mg/dL Glucose 138 H (74-99) mg/dL Assessment and Plan Assessment: 1. Right severe glenohumeral joint osteoarthrosis - Postoperative day 1 status post right total shoulder arthroplasty Plan: 1. Right severe glenohumeral joint osteoarthrosis - right total shoulder arthroplasty performed yesterday, 01/25/2024. Patient stable at bedside this morning with sling and dressing present throughout upper extremity. Pain well-controlled. Discharge home today. 2. Appreciate medical management 3. Pain management - tylenol with codeine 4. GI prophylaxis - senna 5. DVT prophylaxis - aspirin 6. PT/OT - nonweightbearing right upper extremity. Maintain right upper extre mity in sling 7. Encourage incentive spirometer use 8. Discharge planning - discharge home today Time with Patient: Less than 30
== END 2024-01-26 14:11 | disposition home or self-care (01) ==
LOC: OR 08:00 → 4SSUR 11:52 → OR 01-26 14:11
PROVIDERS: ATTEND Orthopaedic Surgery
DX: M19.011 Primary osteoarthritis, right shoulder (principal); M79.7 Fibromyalgia; I10 Essential (primary) hypertension; H40.9 Unspecified glaucoma; G89.18 Other acute postprocedural pain; E78.5 Hyperlipidemia, unspecified; D72.829 Elevated white blood cell count, unspecified; D75.89 Other specified diseases of blood and blood-forming organs; Z79.82 Long term (current) use of aspirin; Z79.899 Other long term (current) drug therapy; Z88.1 Allergy status to other antibiotic agents; Z88.2 Allergy status to sulfonamides; Z90.49 Acquired absence of other specified parts of digestive tract; Z90.710 Acquired absence of both cervix and uterus; Z96.612 Presence of left artificial shoulder joint; Z96.653 Presence of artificial knee joint, bilateral; Z98.890 Other specified postprocedural states
CPT/HCPCS: 85025; 73020; 23472; 64415; J2250; J1100; J0690 ×2; J2405; J3010; 80048; 83735; 85027

== ENCOUNTER 2024-05-31 16:21 | Emergency (ER) | payer BC, MEDICARE ==
[2024-05-31 16:35] VITALS: TEMP 98
[2024-05-31 18:23] VITALS: RESP 18
[2024-05-31 18:55] LABS: Basophils % (A) 0 %; Eosinophils # (A) 0.1 k/uL (0-0.7); Eosinophils % (A) 1 %; HGB 13.7 gm/dL (11.4-16.0); Lymphocytes # (A) 2.6 k/uL (1.0-4.8); Lymphocytes % (A) 30 %; MCH 35.5 pg (25.0-35.0); MCHC 33.5 g/dL (31.0-37.0); MCV 105.9 fL (80.0-100.0); Macrocytosis Slight; Mean Platelet Volume 10.1; Monocytes # (A) 0.3 k/uL (0-1.0); Monocytes % (A) 4 %; Neutrophils # (A) 5.3 k/uL (1.3-7.7); Neutrophils % (A) 63 %; Platelet Count 179 k/uL (150-450); RBC 3.87 m/uL (3.80-5.40); RDW 12.3 % (11.5-15.5); WBC 8.4 k/uL (3.8-10.6)
[2024-05-31 19:04] LABS: ALT 18 U/L (4-34); AST 25 U/L (14-36); African American GFR (CKD) 57 (>60 ml/min/1.73 sqM); Alkaline Phosphatase 115 U/L (38-126); Anion Gap 6 mmol/L; Blood Urea Nitrogen 34 mg/dL (7-17); Calcium 9.5 mg/dL (8.4-10.2); Carbon Dioxide 28 mmol/L (22-30); Chloride 101 mmol/L (98-107); Glucose 90 mg/dL (74-99); Magnesium 2.4 mg/dL (1.6-2.3); Non-African American GFR(CKD) 50 (>60 ml/min/1.73 sqM); Potassium 4.3 mmol/L (3.5-5.1); Sodium 135 mmol/L (137-145); Total Bilirubin 0.7 mg/dL (0.2-1.3); Total Protein 6.7 g/dL (6.3-8.2)
[2024-05-31 19:32] LABS: INR 1.1 (<1.2); Prothrombin Time 11.7 sec (10.0-12.5)
[2024-05-31 19:33] LABS: Partial Thromboplastin Time 18.6 sec (22.0-30.0)
--- NOTE | 2024-05-31 19:33 | ED ---
Dizziness HPI - General Chief Complaint: Dizziness Stated Complaint: dizziness with visual changes Time Seen by Provider: 05/31/24 17:33 Source: patient Mode of arrival: ambulatory Limitations: no limitations - History of Present Illness Initial Comments: 88-year-old female past medical history of hypertension who presents to the emergency department after she had an episode of dizziness. She called her [id number] approximately 2 PM this afternoon to state that she did not feel well. She was having some lightheadedness and some blurred vision in her left eye, especially when she leaned forward. Patient felt like she was going to pass out. Symptoms only lasted a few seconds before they resolved. Her symptoms have not reoccurred. Her uevproro-oh-ryc took her into an urgent care because she had similar symptoms previously when she had an ear infection. Urgent care heard her complaints and told her she would have to go to the emergency department for stroke evaluation. Patient denies history of stroke. No lateralizing numbness, tingling or weakness in her extremities. No headache or visual changes. No nausea or vomiting. No chest pain. Patient denies all symptoms at this time. No other alleviating, precipitating or modifying factors - Related Data Home Medications Medication Instructions Recorded Confirmed ALPRAZolam [Xanax] 1 mg PO HS 03/05/20 01/21/24 Acetaminophen [Tylenol Arthritis] 650 mg PO DIRECTED PRN 05/11/23 01/21/24 Aspirin 81 mg PO Q48H 05/11/23 01/21/24 Losartan/Hydrochlorothiazide 1 tab PO DAILY 05/11/23 01/25/24 [Losartan-Hctz 100-12.5 mg Tab] Magnesium 250 mg PO DAILY 05/11/23 01/25/24 Vit C/E/Zn/Coppr/Lutein/Zeaxan 1 each PO BID 05/11/23 01/25/24 [Preservision Areds 2 Softgel] traMADol HCL 100 mg PO TID PRN 07/07/23 01/25/24 Lipitor (Unk) 1 tab PO HS 01/21/24 Metoprolol Succinate (ER) [Toprol 12.5 mg PO DAILY PRN 01/21/24 01/25/24 XL] Previous Rx's Medication Instructions Recorded Lidocaine 5% Patch [Lidoderm 5% 1 each TP DAILY 30 Days #30 patch 12/27/23 Patch] Acetaminophen-Codeine 300-30mg 1 tab PO Q6H PRN #28 tablet 01/26/24 [Tylenol w/codeine #3] Folic Acid 1 mg PO DAILY 30 Days #30 tablet 01/26/24 Sennosides/Docusate Sodium [Senna 1 each PO DAILY #20 capsule 01/26/24 Plus 8.6-50 mg Softgel] Allergies Allergy/AdvReac Type Severity Reaction Status Date / Time sulfamethoxazole Allergy Rash/Hives Verified 05/31/24 16:35 [From Bactrim] trimethoprim [From Bactrim] Allergy Rash/Hives Verified 05/31/24 16:35 Review of Systems ROS Statement: Those systems with pertinent positive or pertinent negative responses have been documented in the HPI. ROS Other: All systems not noted in ROS Statement are negative. Past Medical History Past Medical History: Eye Disorder, Fibromyalgia, Hypertension, Osteoarthritis (OA) Additional Past Medical History / Comment(s): FREQUENT UTI'S, glaucoma, beginning of macular degeneration History of Any Multi-Drug Resistant Organisms: None Reported Past Surgical History: Appendectomy, Cholecystectomy, Hernia Repair, Hysterectomy, Joint Replacement, Tonsillectomy Additional Past Surgical History / Comment(s): LEFT KNEE REPLACED x2, right knee partial replacement, pain clinic procedure Past Anesthesia/Blood Transfusion Reactions: No Reported Reaction Past Psychological History: Anxiety Smoking Status: Never smoker Past Alcohol Use History: None Reported Past Drug Use History: None Reported - Past Family History Mother Family Medical History: No Reported History General Exam Limitations: no limitations General appearance: alert, in no apparent distress Head exam: Present: atraumatic, normocephalic, normal inspection Eye exam: Present: normal appearance, PERRL, EOMI. Absent: scleral icterus, conjunctival injection, periorbital swelling ENT exam: Present: normal exam, mucous membranes moist Neck exam: Present: normal inspection. Absent: tenderness, meningismus, lymphadenopathy Respiratory exam: Present: normal lung sounds bilaterally. Absent: respiratory distress, wheezes, rales, rhonchi, stridor Cardiovascular Exam: Present: regular rate, normal rhythm, normal heart sounds. Absent: systolic murmur, diastolic murmur, rubs, gallop, clicks GI/Abdominal exam: Present: soft, normal bowel sounds. Absent: distended, tenderness, guarding, rebound, rigid Extremities exam: Present: normal inspection, full ROM, normal capillary refill. Absent: tenderness, pedal edema, joint swelling, calf tenderness Back exam: Present: normal inspection Neurological exam: Present: alert, oriented X3, CN II-XII intact Psychiatric exam: Present: normal affect, normal mood Skin exam: Present: warm, dry, intact, normal color. Absent: rash Course Vital Signs 05/31/24 05/31/24 05/31/24 16:31 18:19 18:51 Temperature 98.0 F Pulse Rate 47 L 52 L Pulse Rate [ 48 L Manual Arts Therapist ] Respiratory 16 18 Rate Blood Pressure 139/84 146/76 O2 Sat by Pulse 99 99 Oximetry 05/31/24 20:53 Temperature 98.0 F Pulse Rate 63 Pulse Rate [ Manual Arts Therapist ] Respiratory 18 Rate Blood Pressure 148/69 O2 Sat by Pulse 97 Oximetry Medical Decision Making - Medical Decision Making Was pt. sent in by a medical professional or institution (, PA, SYSTEMS TEST ANALYST, urgent care, hospital, or fci...) When possible be specific @ -Patient was sent in from urgent care Did you speak to anyone other than the patient for history (EMS, parent, family, police, friend...)? What history was obtained from this source @ -Spoke with the [id number] and daughter for history Did you review nursing and triage notes (agree or disagree)? Why? @ -I reviewed and agree with nursing and triage notes Were old charts reviewed (outside hosp., previous admission, EMS record, old EKG, old radiological studies, urgent care reports/EKG's, fci records)? Report findings @ -No old charts were reviewed Differential Diagnosis (chest pain, altered mental status, abdominal pain women, abdominal pain men, vaginal bleeding, weakness, fever, dyspnea, syncope, hea dache, dizziness, GI bleed, back pain, seizure, CVA, palpatations, mental health, musculoskeletal)? @ -Differential Dizziness: Benign paroxysmal positional Vertigo, Meniere's disease, otitis media, acoustic neuroma, vertebrobasilar insufficiency, cerebellar stroke, encephalitis, hypovolemic, arrhythmia, coronary artery syndrome, anemia, this is not meant to be an all-inclusive list EKG interpreted by me (3pts min.). @ -Yes and demonstrates sinus rhythm with rate of 63. SC interval 190. QRS 85. QTc of 451. No acute ST segment elevations. PACs present X-rays interpreted by me (1pt min.). @ -None done CT interpreted by me (1pt min.). @ -Yes which demonstrates no acute process U/S interpreted by me (1pt. min.). @ -None done What testing was considered but not performed or refused? (CT, X-rays, U/S, labs)? Why? @ -None What meds were considered but not given or refused? Why? @ -None Did you discuss the management of the patient with other professionals (professionals i.e. , PA, SYSTEMS TEST ANALYST, lab, RT, psych nurse, rn social services, river rat, teacher, executive vice president and chief operating officer, correctional casework specialist)? Give summary @ -No Was smoking cessation discussed for >3mins.? @ -No Was critical care preformed (if so, how long)? @ -No Were there social determinants of health that impacted care today? How? (Homeles sness, low income, unemployed, alcoholism, drug addiction, transportation, low edu. Level, literacy, decrease access to med. care, [facility], rehab)? @ -No Was there de-escalation of care discussed even if they declined (Discuss DNR or withdrawal of care, Hospice)? DNR status @ -No What co-morbidities impacted this encounter? (DM, HTN, Smoking, COPD, CAD, Cancer, CVA, ARF, Chemo, Hep., AIDS, mental health diagnosis, sleep apnea, morbid obesity)? @ -None Was patient admitted / discharged? Hospital course, mention meds given and route, prescriptions, significant lab abnormalities, going to OR and other pertinent info. @ -Upon arrival patient seen and evaluated in bed 20. Thorough history and p hysical exam was performed. Patient does allow for laboratory studies and a CT of her brain. She continues to be asymptomatic throughout her stay. I did discuss the diagnosis, differential and treatment options. Patient is adamant that she wants to go home at this time and does not want any further workup. I will honor the patient's request that she is capable of making her own decisions. Patient should monitor her symptoms. Follow-up with her primary care doctor in 2 to 4 days. Return for any new or worsening symptoms. She was agreeable to this and she was discharged in stable condition Undiagnosed new problem with uncertain prognosis? @ -No Drug Therapy requiring intensive monitoring for toxicity (Heparin, Nitro, Insulin, Cardizem)? @ -No Were any procedures done? @ -No Diagnosis/symptom? @ -Near-syncoperesolved Acute, or Chronic, or Acute on Chronic? @ -Acute Uncomplicated (without systemic symptoms) or Complicated (systemic symptoms)? @ -Complicated Side effects of treatment? @ -No Exacerbation, Progression, or Severe Exacerbation? @ -No Poses a threat to life or bodily function? How? (Chest pain, [place], NE, pneumonia, PE, COPD, DKA, ARF, appy, cholecystitis, CVA, Diverticulitis, Homicidal, Suicidal, threat to staff... and all critical care pts) @ -No - Lab Data Result diagrams: 05/31/24 18:36 05/31/24 18:36 Lab Results 05/31/24 05/31/24 05/31/24 Range/Units 18:36 18:36 18:36 WBC 8.4 (3.8-10.6) k/uL RBC 3.87 (3.80-5.40) m/uL Hgb 13.7 (11.4-16.0) gm/dL Hct 41.0 (34.0-46.0) % MCV 105.9 H (80.0-100.0) fL MCH 35.5 H (25.0-35.0) pg MCHC 33.5 (31.0-37.0) g/dL RDW 12.3 (11.5-15.5) % Plt Count 179 (150-450) k/uL MPV 10.1 Neutrophils % 63 % Lymphocytes % 30 % Monocytes % 4 % Eosinophils % 1 % Basophils % 0 % Neutrophils # 5.3 (1.3-7.7) k/uL Lymphocytes # 2.6 (1.0-4.8) k/uL Monocytes # 0.3 (0-1.0) k/uL Eosinophils # 0.1 (0-0.7) k/uL Basophils # 0.0 (0-0.2) k/uL Macrocytosis Slight PT (10.0-12.5) sec INR (<1.2) APTT (22.0-30.0) sec Sodium 135 L (137-145) mmol/L Potassium 4.3 (3.5-5.1) mmol/L Chloride 101 (98-107) mmol/L Carbon Dioxide 28 (22-30) mmol/L Anion Gap 6 mmol/L BUN 34 H (7-17) mg/dL Creatinine 1.02 (0.52-1.04) mg/dL Est GFR (CKD-EPI)AfAm 57 (>60 ml/min/1.73 sqM) Est GFR (CKD-EPI)NonAf 50 (>60 ml/min/1.73 sqM) Glucose 90 (74-99) mg/dL Calcium 9.5 (8.4-10.2) mg/dL Magnesium 2.4 H (1.6-2.3) mg/dL Total Bilirubin 0.7 (0.2-1.3) mg/dL AST 25 (14-36) U/L ALT 18 (4-34) U/L Alkaline Phosphatase 115 (38-126) U/L Troponin I <0.012 (0.000-0.034) ng/mL Total Protein 6.7 (6.3-8.2) g/dL Albumin 4.0 (3.5-5.0) g/dL TSH 1.810 (0.465-4.680) mIU/L Urine Color Urine Appearance (Clear) Urine pH (5.0-8.0) Ur Specific Dola (1.001-1.035) Urine Protein (Negative) Urine Glucose (UA) (Negative) Urine Ketones (Negative) Urine Blood (Negative) Urine Nitrite (Negative) Urine Bilirubin (Negative) Urine Urobilinogen (<2.0) mg/dL Ur Leukocyte Esterase (Negative) Urine RBC (0-5) /hpf Urine WBC (0-5) /hpf Urine Bacteria (None) /hpf 05/31/24 05/31/24 Range/Units 19:03 19:33 WBC (3.8-10.6) k/uL RBC (3.80-5.40) m/uL Hgb (11.4-16.0) gm/dL Hct (34.0-46.0) % MCV (80.0-100.0) fL MCH (25.0-35.0) pg MCHC (31.0-37.0) g/dL RDW (11.5-15.5) % Plt Count (150-450) k/uL MPV Neutrophils % % Lymphocytes % % Monocytes % % Eosinophils % % Basophils % % Neutrophils # (1.3-7.7) k/uL Lymphocytes # (1.0-4.8) k/uL Monocytes # (0-1.0) k/uL Eosinophils # (0-0.7) k/uL Basophils # (0-0.2) k/uL Macrocytosis PT 11.7 (10.0-12.5) sec INR 1.1 (<1.2) APTT 18.6 L (22.0-30.0) sec Sodium (137-145) mmol/L Potassium (3.5-5.1) mmol/L Chloride (98-107) mmol/L Carbon Dioxide (22-30) mmol/L Anion Gap mmol/L BUN (7-17) mg/dL Creatinine (0.52-1.04) mg/dL Est GFR (CKD-EPI)AfAm (>60 ml/min/1.73 sqM) Est GFR (CKD-EPI)NonAf (>60 ml/min/1.73 sqM) Glucose (74-99) mg/dL Calcium (8.4-10.2) mg/dL Magnesium (1.6-2.3) mg/dL Total Bilirubin (0.2-1.3) mg/dL AST (14-36) U/L ALT (4-34) U/L Alkaline Phosphatase (38-126) U/L Troponin I (0.000-0.034) ng/mL Total Protein (6.3-8.2) g/dL Albumin (3.5-5.0) g/dL TSH (0.465-4.680) mIU/L Urine Color Colorless Urine Appearance Clear (Clear) Urine pH 5.5 (5.0-8.0) Ur Specific Dola 1.009 (1.001-1.035) Urine Protein Negative (Negative) Urine Glucose (UA) Negative (Negative) Urine Ketones Negative (Negative) Urine Blood Negative (Negative) Urine Nitrite Positive H (Negative) Urine Bilirubin Negative (Negative) Urine Urobilinogen <2.0 (<2.0) mg/dL Ur Leukocyte Esterase Small H (Negative) Urine RBC 1 (0-5) /hpf Urine WBC 14 H (0-5) /hpf Urine Bacteria Few H (None) /hpf Disposition Clinical Impression: Near syncope Disposition: HOME SELF-CARE Condition: Stable Instructions (If sedation given, give patient instructions): Dizziness (ED) Additional Instructions: Please follow-up with your primary care doctor within the next 2 to 4 days. Return to the emergency room for any new or worsening symptoms Is patient prescribed a controlled substance at d/c from ED?: No Referrals: Sammy Velazquez DO [Primary Care Provider] - 1-2 days Time of Disposition: 20:00
--- NOTE | 2024-05-31 19:42 | CT ---
EXAMINATION TYPE: CT brain wo con DATE OF EXAM: 05/31/2024 COMPARISON: NONE CLINICAL INDICATION: Female, 88 years old with history of dizzy, Dizzy. TECHNIQUE: CT scan of the head is performed without contrast. CT DLP: 1156.4 mGycm. Automated Exposure Control for Dose Reduction was Utilized. FINDINGS: There is no acute intracranial hemorrhage or midline shift identified. There is mild-to-m oderate diffuse ventricular and sulcal prominence consistent with diffuse age-related cerebral atroph y. Pryor-white matter differentiation is preserved. Hyperostosis frontalis is seen. Bilateral aphakia is present. The visualized sinuses are clear. IMPRESSION: No acute intracranial hemorrhage or midline shift. [facility], , 05/31/2024 7:40 PM
--- NOTE | 2024-05-31 19:43 | XR ---
EXAMINATION TYPE: XR chest 2V DATE OF EXAM: 05/31/2024 CLINICAL INDICATION: Female, 88 years old with history of Weakness, TECHNIQUE: Frontal and lateral views of the chest are obtained. COMPARISON: CTA chest December 04, 2020 FINDINGS: There is no focal air space opacity, pleural effusion, or pneumothorax seen. The cardiac silhouette size is upper limits of normal. Surgical change bilateral shoulders is partially imaged. IMPRESSION: No acute cardiopulmonary process. [facility], , 05/31/2024 7:41 PM
[2024-05-31 19:46] LABS: Appearance,Urine Clear (Clear); Bacteria,Urine Few /hpf; Bilirubin,Urine Negative (Negative); Blood,Urine Negative (Negative); Color,Urine Colorless; Glucose,Urine (UA) Negative (Negative); Ketones,Urine Negative (Negative); Leukocyte Esterase,Urine Small (Negative); Nitrite,Urine Positive (Negative); PH, Urine 5.5 (5.0-8.0); Protein,Urine Negative (Negative); RBC,Urine 1 /hpf (0-5); Specific Gravity,Urine 1.009 (1.001-1.035); Urobilinogen,Urine <2.0 mg/dL (<2.0); WBC,Urine 14 /hpf (0-5)
[2024-05-31 20:56] VITALS: BP 148/69; PULSE 63
== END 2024-05-31 21:09 | disposition home or self-care (01) ==
LOC: EC 16:21
DX: R55 Syncope and collapse (principal); I10 Essential (primary) hypertension; Z88.1 Allergy status to other antibiotic agents; Z88.2 Allergy status to sulfonamides
CPT/HCPCS: 36415; 70450; 71046; 80053; 81001; 83735; 84443; 84484; 85025; 85610; 85730; 87077; 87086; 87186; 93005; 99285